=== PATIENT | male | born 1970 | race Two or more races ===

== ENCOUNTER 2024-10-31 12:16 | Inpatient (IN) | payer BC, SELFPAY ==
--- NOTE | 2024-10-31 | XR_ITS ---
MRI abdomen, without contrast. MRCP Date and time of exam: October 31, 2024, 1719 hours INDICATIONS: Diagnosis cirrhosis, chronic hepatitis C, gastrointestinal bleeding, elevated total bilirubin, diffuse abdominal pain beginning 3 days ago Technique: Multiple axial and coronal images of the abdomen have been obtained with the Siemens 1.5T MRI scanner. Images obtained included T1 weighted transverse images, T2-weighted transverse images, T2-weighted transverse images fat-suppressed, T2 weighted haste fat suppressed transverse images, T1 weighted images, in and out of phase images, T2-weighted coronal images, breath hold, T2 weighted haze coronal images as well as T2 weighted coronal thick slab images, MRCP. Findings: Cirrhosis, liver nodular in contour Multiple liver lesions throughout the dome and right lobe of the liver, the largest in the lower right lobe of the liver 20 mm No intrahepatic biliary tract dilatation Multiple gallstones There is edema around the gallbladder but the patient has ascites Massive splenomegaly Common hepatic common bile duct are 2 mm with no common hepatic or common bile duct stones Wall thickening involving the colon diffusely, hepatic off of the pattern No hydronephrosis No dilated pancreatic duct or pancreatic mass IMPRESSION: Cirrhosis, multiple hepatic lesions, differential would include hepatic metastases, multifocal primary hepatocellular carcinoma, recommend MRI abdomen postintravenous contrast follow-up Cholelithiasis, gallbladder wall is edematous but the patient has ascites, consider HIDA scan follow-up to assess for cystic duct obstruction Massive splenomegaly Common hepatic duct common bile duct normal size no common hepatic or common bile duct stones, no extrahepatic biliary tract dilatation Diffuse hepatic adenopathy
[2024-10-31 13:07] VITALS: BP 134/80; PULSE 82; RESP 18; TEMP 37.3; O2SAT 96; BMI 21.2
--- NOTE | 2024-10-31 13:14 | PD.EDRME ---
Rapid Medical Screening Exam RME Arrival date/time: 10/31/24 12:16 This is a 54-year-old male that comes in with complaints of abdominal pain diffusely for the past 3 days. Patient denies any nausea, vomiting, diarrhea. Patient has a history of hepatitis C, liver cirrhosis and has had a GI bleed in the past. I have greeted and performed a focused initial assessment of this patient. Initial appropriate labs ordered at this time. A comprehensive ED assessment and evaluation of the patient and analysis of all test and completion of medical decision making process will be conducted by additional ED provider. Chief Complaint: Abdominal Pain Time Seen by Provider: 10/31/24 12:39 Vital signs: Vital Signs Temperature 99.2 F 10/31/24 13:07 Pulse Rate 82 10/31/24 13:07 Respiratory Rate 18 10/31/24 13:07 Blood Pressure 134/80 H 10/31/24 13:07 Pulse Oximetry (%) 96 10/31/24 13:07 Oxygen Delivery Method Room Air 10/31/24 13:07
[2024-10-31 14:33] LABS: INR 1.3 (0.9-1.3)
[2024-10-31 14:38] LABS: Alanine Aminotransferase 25 U/L (10-49); Albumin, Serum 3.8 gm/dL (3.5-5.0); Albumin/Globulin Ratio 0.9 (1.2-2.2); Alkaline Phosphatase 105 U/L (46-116); Anion Gap 9 (7-16); Aspartate Amino Transferase 36 U/L (0-34); BUN/Creatinine Ratio 14 Ratio (12-20); Bilirubin,Total 3.8 mg/dL (0.3-1.2); Blood Urea Nitrogen 11 mg/dL (9-23); Calcium 8.7 mg/dL (8.3-10.6); Calcium (Corrected) 8.9 mg/dL (8.5-10.1); Carbon Dioxide 27.2 mMol/L (20.0-31.0); Chloride 102 mMol/L (98-107); Creatinine (Component) 0.8 mg/dL (0.6-1.3); Estimated Creatinine Clearance 96.1 mL/min (>60); Globulin 4.1 gm/dL (2.3-3.5); Glucose 247 mg/dL (74-106); Lipase 33 U/L (12-53); Osmolality,Calculated 283 (275-295); Potassium 3.9 mMol/L (3.4-5.1); Sodium 138 mMol/L (136-145); Total Protein 7.9 gm/dL (5.7-8.2); eGFR > 60 See Note
[2024-10-31 14:59] LABS: Collection Type, Urine Pedi-Bag; Squamous Epithelial Cell,Urine 0 /hpf (0-5)
[2024-10-31 15:15] LABS: Bilirubin,Urine Negative (Negative); Blood,Urine Negative (Negative); Clarity,Urine Clear (Clear/Hazy); Color,Urine Yellow (Lt Yel-Yel); Culture Indicated,Urine Not Indicated; Glucose, Urine 4+ (Negative); Ketones,Urine 1+ (Negative); Leukocyte Esterase,Urine Negative (Negative); Nitrite,Urine Negative (Negative); PH,Urine 5.5 (5.0-7.0); Protein,Urine 1+ (Neg - Trace); RBC,Urine 5 /hpf (0-3); Specific Gravity,Urine 1.045 (1.001-1.035); Urobilinogen,Urine Negative mg/dL (0.0-1.0); WBC,Urine 2 /hpf (0-5)
[2024-10-31 15:16] VITALS: BP 145/69; PULSE 76; RESP 19; TEMP 36.9; O2SAT 98
--- NOTE | 2024-10-31 15:25 | EDNOTE_ITS ---
<Statement entered by Tierra Maier MD - 11/01/24 04:25> As co-signing physician, I was present and available for consult prn. I concur with the plan and care as documented by the midlevel provider. ED Abdominal Pain RME/HPI General Chief Complaint: Abdominal Pain Stated complaint: ABD PAIN X2 DAYS Time seen by provider: 10/31/24 12:39 Arrival date/time: 10/31/24 12:16 RME / HPI RME / HPI narrative: 54-year-old male that comes in with complaints of abdominal pain diffusely for the past 3 days. Patient denies any nausea, vomiting, diarrhea. Patient has a history of hepatitis C, liver cirrhosis and has had a GI bleed in the past. Pain is described as dull ache, severity moderate. Denies any vomiting denies any other complaints. No medications taken prior to ER visit. Related Data Previous Rx's ?Medication ?Instructions ?Recorded blood-glucose sensor (FreeStyle #1 ea 05/23/23 Keanu 3 Sensor device) metformin 500 mg tablet,extended 500 mg PO BID 30 days #60 tabs 05/23/23 release 24hr (osmotic) pantoprazole 40 mg tablet,delayed 40 mg PO QDAY 30 day s #30 tabs 05/23/23 release Allergies Allergy/AdvReac Type Severity Reaction Status Date / Time No Known Allergies Allergy Unverified 06/30/23 11:48 Review of Systems Review of Systems Narrative Review of Systems: Review of system reviewed and within normal limits except mentioned in HPI ED Exam Narrative Physical exam: VITAL SIGNS: Reviewed. GENERAL APPEARANCE: Alert and interactive, follows commands, no acute distress, HEAD AND FACE: Non-traumatic. ENT: PERRL, pale conjunctiva, eyelid no trauma, Mucous membrane moist. NECK: Supple, nontender, no nuchal rigidity. CHEST: No tenderness, no crepitus, no paradoxical movement, no retractions. LUNGS: Clear, well ventilated, symmetric, no rales, no wheezing, no ronchi, no stridor, good breath sounds bilaterally. HEART: Regular rate, regular rhythm, no murmur, no gallops. ABDOMEN: Soft, positive bowel sounds, nondistended, no guarding, diffuse tenderness, no rebound, no masses, RECTAL: Deferred. GENITAL: Deferred. NEUROLOGICAL: Gross motor function intact sensory function intact, Appropriate for age. MUSCULOSKELETAL: low back nontender, full range of motion. EXTREMITIES: Nontender, full range of motion. SKIN: Color pink, dry, no rash, no lacerations, no abrasions, no contusions. LYMPHATICS: Deferred. Course Quality Measures none Orders Category Date Time Status MRI Screening NOW Care 10/31/24 15:23 Active Consult to Gastroenterology Stat Cons 10/31/24 21:14 Ordered MR MRCP Stat Exams 10/31/24 Completed Bilirubin,Direct Stat Lab 10/31/24 15:32 Completed CBC Stat Lab 10/31/24 15:32 Completed Comprehensive Metabolic Panel Stat Lab 10/31/24 13:47 Completed Lipase Stat Lab 10/31/24 13:47 Completed PT [Prothrombin Time with INR] Stat Lab 10/31/24 13:47 Completed Type and Screen Stat Lab 10/31/24 13:47 Completed Urinalysis, C/S if Indicated Stat Lab 10/31/24 14:14 Completed Morphine Inj Med 10/31/24 15:22 Discontinued 4 mg IVP X1 ONE Ondansetron Inj [Zofran Inj] Med 10/31/24 15:22 Discontinued 4 mg IV X1 ONE Vital Signs Vital signs: Vital Signs Temperature 99.2 F 10/31/24 13:07 Pulse Rate 82 10/31/24 13:07 Respiratory Rate 18 10/31/24 13:07 Blood Pressure 134/80 H 10/31/24 13:07 Pulse Oximetry (%) 96 10/31/24 13:07 Oxygen Delivery Method Room Air 10/31/24 13:07 Abdominal Pain MDM MDM Narrative MDM Narrative:: 54-year-old male that comes in with complaints of abdominal pain diffusely for the past 3 days. Patient denies any nausea, vomiting, diarrhea. Patient has a history of hepatitis C, liver cirrhosis and has had a GI bleed in the past. Pain is described as dull ache, severity moderate. Denies any vomiting denies any other complaints. No medications taken prior to ER visit. Patient's laboratory workup is significant for total bili 03.8 direct bili 0.6 AST is 36 the rest of the labs unremarkable. Urinalysis no UTI MRCP of the abdomen showed cirrhosis, multiple hepatic lesion, differential includes hepatic metastasis multifocal primary hepatocellular carcinoma. Cholelithiasis gallbladder wall edema but patient is having ascites.. Patient received morphine IV with significant improvement of pain Spoke with GI specialist on-call, Dr. Henry, who advised me to admit the patient for further management including CT-guided biopsy of the liver lesions Patient agrees to be admitted. Patient data External records reviewed:: None Clinical information provided by:: patient Social determinants that could affect healthcare access:: none Patient has the following chronic illnesses:: Liver cirrhosis How is presenting disease/condition affected by chronic disease/condition?: exacerbated by Evaluation data The following diagnostics were reviewed and interpreted by me:: lab results and radiology exam(s) Lab and/or radiology exams considered but not ordered:: None Interpretation Summary: See results in [facility] Medications / Prescriptions Medications or Prescriptions considered but not ordered:: None Medication administrations:: Medication Administration History Discontinued Medications Morphine Sulfate (Morphine Sulf Inj 10 Mg/Ml Vial) 4 mg IVP X1 ONE Stop: 10/31/24 15:23 Last Admin: 10/31/24 19:02 Dose: 4 mg Documented By: TRISTAN Ondansetron HCl (Ondansetron Inj 2 Mg/Ml Inj 2 Ml) 4 mg IV X1 ONE; Protocol Stop: 10/31/24 15:23 Last Admin: 10/31/24 19:06 Dose: 4 mg Documented By: elaine Gaspar Consultations Consultation(s) initiated? (list below): No Diagnosis Differential diagnosis abdominal pain: abdominal pain, pancreatitis and other (Cholelithiasis, hepatic lesions, liver cirrhosis) Most likely diagnosis given after review of the tests above:: Cholelithiasis, hepatic lesions, liver cirrhosis Admission Indicated Admission indicated?: indicated Admission Request Was there a request for admission?: Yes Admission Attestation Admission request attestation: Discussed case with [Dr. Lopez] from Hospitalist service regarding admission. Discussed patients ED course, exam findings, labs, and radiology results. The Hospitalist declines] to accept the patient for admission. Disposition Plan Disposition Plan: Admit Discharge Plan Prescriptions/Referrals Prescriptions/Med Rec: No Action pantoprazole 40 mg tablet,delayed release (DR/EC) 40 mg PO QDAY 30 Days Qty: 30 2RF metformin 500 mg tablet extended release 24hr 500 mg PO BID 30 Days Qty: 60 2RF (DME) FreeStyle Keanu 3 Sensor Device See Rx Instructions .Route Qty: 1 2RF Rx Instructions: As directed Referrals: Maru,Juice, MD [Primary Care Provider] - In 1 week Problem List Clinical Impression: Abdominal pain, Cholelithiasis, Cirrhosis of liver, Hepatic lesion Patient/Caregiver Discharge Instructions Print Language: Tanzanian
[2024-10-31 15:44] LABS: Basophils % (Auto) 0 % (0-2.5); Eosinophils % (Auto) 0 % (0-10); Hematocrit 39.3 % (41.0-53.0); Hemoglobin 13.4 g/dL (13.5-16.0); Immature Granulocytes % (Auto) 0 % (0-0); Immature Granulocytes Auto 0.01 Thou/mm3 (0.00-0.00); Lymphocytes # (Auto) 0.5 Thou/mm3 (1.0-4.8); Lymphocytes % (Auto) 9 % (10-50); Mean Corpuscular HGB Conc 34.1 g/dl (31.0-37.0); Mean Corpuscular Hemoglobin 27.7 pg (25.0-35.0); Mean Corpuscular Volume 81 fL (80-100); Monocytes # (Auto) 0.4 Thou/mm3 (0.0-0.8); Monocytes % (Auto) 8 % (0-12); Neutrophils # (Auto) 4.5 Thou/mm3 (1.8-7.7); Neutrophils % (Auto) 83 % (37-80); Nucleated Red Blood Cell % 0 /100 WBC (0); RDW Standard Deviation 55.7 fL (35.1-43.9); Red Blood Count 4.83 Miln/mm3 (4.50-5.90); White Blood Count 5.5 Thou/mm3 (3.8-10.6)
[2024-10-31 15:52] LABS: Platelet Count 48 Thou/mm3 (140-440)
[2024-10-31 16:03] LABS: Bilirubin,Direct 0.6 mg/dL (0.0-0.3)
[2024-10-31 16:57] LABS: Slide Review Platelets confirmed
[2024-10-31] MEDS: MORPHINE SULF INJ 10 MG/ML VIAL 4 MG IVP (19:02)
[2024-10-31] MEDS: ONDANSETRON INJ 2 MG/ML INJ 2 ML 4 MG IV (19:06)
[2024-10-31 19:08] VITALS: BP 152/80; PULSE 81; RESP 18; TEMP 37.2; O2SAT 96
[2024-10-31 21:07] VITALS: BP 120/69; PULSE 86; RESP 17; TEMP 37; O2SAT 98
--- NOTE | 2024-10-31 22:14 | ESCONSULT_ITS ---
HPI Data of Consult Primary Care Provider: Juice Mahoney MD Consult Narrative Reason for consult: Abnormal LFTs, abnormal MRCP History of present illness: 54-year-old male admitted after discussion with the ER physician of abnormal LFTs with a total bili of 4.5 AST ALT [address] scan of the abdomen pelvis has shown splenomegaly portosystemic collaterals and cirrhosis MRCP at my request showed multiple hepatic lesions primary versus metastatic hepatocellular carcinoma is in the differential diagnosis and thickening of the colonic wall Patient was subsequently admitted Patient does have a history of GI bleeds in the past requiring band ligation of the esophageal varices Chronic liver disease due to hepatitis C cc:: cc: Review of Systems Review of Systems Systems Reviewed: All systems reviewed, normal except as documented Past Medical History Surgical History OTHER SURGICAL HX: Diabetes mellitus type 1 Meds Home Medications and Allergies Home Medications ?Medication ?Instructions ?Recorded ?Confirmed ?Type risankizumab-rzaa 150 mg/mL mg subcut 11/01/24 Histor y subcutaneous pen injector (Skyrizi) semaglutide 0.25 mg or 0.5 mg (2 mg subcut 11/01/24 H istory mg/3 mL) subcutaneous pen injector (Ozempic) Allergies Allergy/AdvReac Type Severity Reaction Status Date / Time No Known Allergies Allergy Unverified 06/30/23 11:48 Exam Vital Signs Temp Pulse Resp BP Pulse Ox O2 Del Method 98.6 F 86 17 120/69 98 Room Air 10/31/24 21:07 10/31/24 21:07 10/31/24 21:07 10/31/24 21:07 10/31/24 21:07 10/31/24 21:07 Constitutional Comments: Alert oriented Routine Respiratory Exam Comments: Normal to auscultation Routine Abdominal Exam Comments: Soft nontender Results Labs 11/01/24 05:40 11/01/24 05:40 Labs: Short CBC 10/31/24 Range/Units 15:32 WBC 5.5 (3.8-10.6) Thou/mm3 Hgb 13.4 L (13.5-16.0) g/dL Hct 39.3 L (41.0-53.0) % Plt Count 48 L (140-440) Thou/mm3 BMP 10/31/24 13:47 Sodium 138 Potassium 3.9 Chloride 102 Carbon Dioxide 27.2 BUN 11 Creatinine 0.8 Glucose 247 H Calcium 8.7 Liver Function 10/31/24 10/31/24 Range/Units 13:47 15:32 Total Bilirubin 3.8 H (0.3-1.2) mg/dL Direct Bilirubin 0.6 H (0.0-0.3) mg/dL AST 36 H (0-34) U/L ALT 25 (10-49) U/L Alkaline Phosphatase 105 (46-116) U/L Albumin 3.8 (3.5-5.0) gm/dL Urine 10/31/24 Range/Units 14:14 Urine Color Yellow (Lt Yel-Yel) Urine Clarity Clear (Clear/Hazy) Urine pH 5.5 (5.0-7.0) Ur Specific [place] 1.045 H (1.001-1.035) Urine Protein 1+ A (Neg - Trace) Urine Glucose (UA) 4+ A (Negative) Assessment and Plan Additional Assessment & Plan Additional Plan: 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
[2024-10-31 23:28] VITALS: BP 101/52; PULSE 80; RESP 16; TEMP 36.8; O2SAT 97
[2024-10-31] MEDS: LACTULOSE SYRUP 20 GM/30 ML UDC 10 GM PO (23:34)
[2024-10-31] MEDS: SENNA TABLET 1 TAB PO (23:34)
--- NOTE | 2024-10-31 23:42 | ESHP_ITS ---
Documentation for date of: 10/31/24 HPI History of Present Illness Chief complaint: Abdominal pain History of present illness: Mr. Guerrero is a 54-year-old male with past medical history of esophageal varices (November 2022), Cirrhosis, psoriasis, hepatitis C infection, diabetes, hypertension and claustrophobia who presented to [facility] emergency department on 10/31/2024 with a chief complaint of abdominal pain, patient complains of severe abdominal pain describes it as a dull ache with moderate severity. Patient complains that he has been constipated for a while, reports using Ozempic for diabetes, did report a small bowel movement earlier today complains of a sense of fullness. Otherwise has no current complaints, does complain of some discomfort in the back. 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 Patient denies any nausea vomiting, denies any blood in stool. ED Course: ED Vitals: On presentation blood pressure 134/80, heart rate 82, respiratory rate 18, temp 99.2, O2 sat 96 on room air ED Labs: On presentation ED labs significant for hemoglobin 13.4, hematocrit 39.3, platelet count 48, INR 1.3, glucose 247, total bilirubin 3.8, direct bilirubin 0.6, AST 36, globulin 4.1. Urinalysis show specific gravity 1.045, protein 1+, glucose 4+, ketones 1+, RBC 5 ED Imaging: MRCP shows cirrhosis, multiple hepatic lesions, cholelithiasis, massive splenomegaly, diffuse hepatic adenopathy ED Treatment:Patient received 4 mg IV push morphine x 1 and Zofran 4 mg IV x 1 in the emergency department Review of Systems Review of Systems Narrative Review of Systems: ROS: -CONSTITUTIONAL: Denies weight loss, fever and chills. -HEENT: Denies changes in vision and hearing. -RESPIRATORY: Denies SOB and cough. -CV: Denies palpitations and Chest Pain. -GI: Positive for abdominal pain, denies nausea, vomiting,constipation and diarrhea. -: Denies dysuria and urinary frequency. -MSK: Denies myalgia and joint pain. -SKIN: Denies rash and pruritus. -NEUROLOGICAL: Denies headache and syncope. -PSYCHIATRIC: Denies recent changes in mood. Denies anxiety and depression. 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 Conversational and non-toxic appearing. HEENT: Normocephalic, atraumatic, mucous membranes moist. Heart: Regular rate and rhythm, no murmurs. Lungs: Clear to auscultation with no wheezing or crackles. Abdomen: Soft, nondistended, mild abdominal tenderness, positive bowel sounds. ?No guarding or rebound tenderness. Neurologic: Alert and oriented x3, no gross neurological deficit, and patient able to move all 4 extremities. Extremities: No edema. Skin: No rash or ecchymoses. Results: Labs 10/31/24 15:32 10/31/24 13:47 Labs: Short CBC 10/31/24 Range/Units 15:32 WBC 5.5 (3.8-10.6) Thou/mm3 Hgb 13.4 L (13.5-16.0) g/dL Hct 39.3 L (41.0-53.0) % Plt Count 48 L (140-440) Thou/mm3 BMP 10/31/24 13:47 Sodium 138 Potassium 3.9 Chloride 102 Carbon Dioxide 27.2 BUN 11 Creatinine 0.8 Glucose 247 H Calcium 8.7 Liver Function 10/31/24 10/31/24 Range/Units 13:47 15:32 Total Bilirubin 3.8 H (0.3-1.2) mg/dL Direct Bilirubin 0.6 H (0.0-0.3) mg/dL AST 36 H (0-34) U/L ALT 25 (10-49) U/L Alkaline Phosphatase 105 (46-116) U/L Albumin 3.8 (3.5-5.0) gm/dL Urine 10/31/24 Range/Units 14:14 Urine Color Yellow (Lt Yel-Yel) Urine Clarity Clear (Clear/Hazy) Urine pH 5.5 (5.0-7.0) Ur Specific [place] 1.045 H (1.001-1.035) Urine Protein 1+ A (Neg - Trace) Urine Glucose (UA) 4+ A (Negative) Quality Measures Quality Measures none Medications Home Medications and Allergies Home Medications ?Medication ?Instructions ?Recorded ?Confirmed ?Type risankizumab-rzaa 150 mg/mL mg subcut 11/01/24 Histor y subcutaneous pen injector (Skyrizi) semaglutide 0.25 mg or 0.5 mg (2 mg subcut 11/01/24 H istory mg/3 mL) subcutaneous pen injector (Ozempic) Allergies Allergy/AdvReac Type Severity Reaction Status Date / Time No Known Allergies Allergy Unverified 06/30/23 11:48 Visit Medications Acetaminophen (Acetaminophen 325 Mg Tablet) 650 mg PO Q6H PRN PRN Reason: Pain (1-3) and Fever >101.5 Stop: 11/30/24 22:47 Hydrocodone Bitart/Acetaminophen (Hydrocodone/Apap 5/325 Tablet) 1 tab PO Q4HR PRN PRN Reason: PAIN SCALE 4-6 (Moderate Stop: 11/05/24 22:53 Dextrose (Dextrose 50%-Water Inj 50 Ml Syringe) 25 ml IV Q15MIN PRN PRN Reason: BG 50-70 responsive npo pt Stop: 11/30/24 22:58 Dextrose (Dextrose 50%-Water Inj 50 Ml Syringe) 50 ml IV Q15MIN PRN PRN Reason: BG <50 OR BG <70 & pt unresponsive Stop: 11/30/24 22:58 Glucagon (Glucagon Inj 1 Mg Vial) 1 mg IM Q15MIN PRN PRN Reason: BG <70, and no IV access Insulin Human Lispro (Insulin Lispro (Admelog) 1 Unit/0.01 Ml Unit) 0 unit SC [facility]; Protocol Stop: 12/01/24 07:29 Morphine Sulfate (Morphine Sulf Inj 10 Mg/Ml Vial) 2 mg IVP Q6H PRN PRN Reason: PAIN SCALE 7-10 (Severe Stop: 11/05/24 22:53 Ondansetron HCl (Ondansetron Inj 2 Mg/Ml Inj 2 Ml) 4 mg IV Q6H PRN; Protocol PRN Reason: NAUSEA OR VOMITING Stop: 11/30/24 22:47 Pantoprazole Sodium (Pantoprazole Inj 40 Mg Vial) 40 mg IVP QDAY ADARSH Stop: 12/01/24 08:59 Polyethylene Glycol (Polyethylene Glycol 17 Gm Packet) 17 gm PO QDAY ADARSH Stop: 12/01/24 08:59 Sennosides (Senna Tablet) 2 tab PO QDAY ADARSH; Protocol Stop: 12/01/24 08:59 Discontinued Medications Lactulose (Lactulose Syrup 20 Gm/30 Ml Udc) 10 gm PO X1 ONE; Protocol Stop: 10/31/24 22:58 Last Admin: 10/31/24 23:34 Dose: 10 gm Morphine Sulfate (Morphine Sulf Inj 10 Mg/Ml Vial) 4 mg IVP X1 ONE Stop: 10/31/24 15:23 Last Admin: 10/31/24 19:02 Dose: 4 mg Ondansetron HCl (Ondansetron Inj 2 Mg/Ml Inj 2 Ml) 4 mg IV X1 ONE; Protocol Stop: 10/31/24 15:23 Last Admin: 10/31/24 19:06 Dose: 4 mg Sennosides (Senna Tablet) 1 tab PO X1 ONE; Protocol Stop: 10/31/24 22:58 Last Admin: 10/31/24 23:34 Dose: 1 tab Assessment & Plan Plan Assessment and plan: Summary: Mr. Guerrero is a 54-year-old male with past medical history of esophageal varices (November 2022), Cirrhosis, psoriasis, hepatitis C infection, diabetes, hypertension and claustrophobia who presented to [facility] emergency department on 10/31/2024 with a chief complaint of abdominal pain, patient complains of severe abdominal pain describes it as a dull ache with moderate severity. Patient admitted to hospital for further workup. #Intractable abdominal pain #Multiple hepatic lesions #Compensated cirrhosis #History of hepatitis C #Thrombocytopenia, hyperbilirubinemia, transaminitis Patient has history of cirrhosis secondary to hepatitis C, patient did have history of esophageal varices, had bleeding in November 2022, follows gastroenterology outpatient. Presented with severe abdominal pain, reports history of constipation on and off is on Ozempic outpatient. Platelet count 48, INR 1.3, glucose 247, total bilirubin 3.8, direct bilirubin 0.6, AST 36. MRCP shows cirrhosis, multiple hepatic lesions, cholelithiasis, massive splenomegaly, diffuse hepatic adenopathy Child Ng score: 7 points, Child class B, MELD score 14 points, 6% estimated 3- month mortality Plan: - Pain management - Started on senna and MiraLAX scheduled, lactulose x 1 for constipation - Consider liver biopsy - Ordered AFP - GI consulted, appreciate recommendations - MRCP does show cholelithiasis, consider surgery consult #Diabetes mellitus Patient has history of diabetes on Ozempic - Sliding scale insulin, fingerstick monitor - Hypoglycemia protocol - Follow A1c in a.m. #Hypertension Patient on Coreg for hypertension/esophageal varices prophylaxis - Consider resuming in a.m. #Psoriasis Patient on risankizumab for psoriasis, currently no complaints DVT prophylaxis: SCDs, no chemical prophylaxis started because of low platelets and history of esophageal varices GI prophylaxis: IV Protonix daily Diet: Low-sodium diet Lines: Peripheral IV Code status: Full code Case discussed with Attending Dr. Polk. Brandon Lopez PGY1 Disclaimer: This note was dictated by speech recognition. Minor errors in shoeshiner may be present due to voice recognition software. Attending Provider Attestation/Addendum I have examined the patient, reviewed labs and imaging findings, discussed the case with the resident(s), and reviewed entered orders. I agree with the plan of care as outlined in this note, with these additional summaries/recommendations: 54-year-old male with history of cirrhosis likely secondary to hep C presents to the ED with chief complaint of intractable abdominal pain that has been ongoing worsening for last several days. Workup in the ER shows cirrhosis, multiple hepatic lesions, cholelithiasis, massive splenomegaly, diffuse hepatic adenopathy. Case was discussed with GI who recommended admission for further workup of possible malignancy. Will admit to observation for workup and possible biopsy of hepatic lesions. Steve Polk MD
[2024-11-01] VITALS (7 sets, daily range): BP systolic 113–145; BP diastolic 61–78; PULSE 64–75; RESP 14–18; TEMP 36.2–37.4; O2SAT 95–97; BMI 21.4
[2024-11-01] MEDS: MORPHINE SULF INJ 10 MG/ML VIAL 2 MG IVP (02:56)
[2024-11-01 07:05] LABS: Basophils % (Auto) 1 % (0-2.5); Eosinophils # (Auto) 0.1 Thou/mm3 (0.0-0.5); Eosinophils % (Auto) 3 % (0-10); Hematocrit 33.7 % (41.0-53.0); Hemoglobin 11.8 g/dL (13.5-16.0); INR 1.4 (0.9-1.3); Immature Granulocytes % (Auto) 0 % (0-0); Lymphocytes # (Auto) 1.1 Thou/mm3 (1.0-4.8); Lymphocytes % (Auto) 31 % (10-50); Mean Corpuscular Hemoglobin 28.7 pg (25.0-35.0); Mean Corpuscular Volume 82 fL (80-100); Monocytes # (Auto) 0.5 Thou/mm3 (0.0-0.8); Monocytes % (Auto) 15 % (0-12); Neutrophils # (Auto) 1.8 Thou/mm3 (1.8-7.7); Neutrophils % (Auto) 51 % (37-80); Nucleated Red Blood Cell % 0 /100 WBC (0); Prothrombin Time 15.1 Seconds (9.0-12.2); RDW Standard Deviation 55.8 fL (35.1-43.9); Red Blood Count 4.11 Miln/mm3 (4.50-5.90); White Blood Count 3.5 Thou/mm3 (3.8-10.6)
[2024-11-01 07:07] LABS: Platelet Count 34 Thou/mm3 (140-440)
[2024-11-01 07:24] LABS: Alanine Aminotransferase 19 U/L (10-49); Albumin, Serum 3.5 gm/dL (3.5-5.0); Albumin/Globulin Ratio 0.9 (1.2-2.2); Alkaline Phosphatase 80 U/L (46-116); Anion Gap 6 (7-16); Aspartate Amino Transferase 28 U/L (0-34); BUN/Creatinine Ratio 17 Ratio (12-20); Bilirubin,Total 4.5 mg/dL (0.3-1.2); Blood Urea Nitrogen 12 mg/dL (9-23); Calcium 8.3 mg/dL (8.3-10.6); Calcium (Corrected) 8.7 mg/dL (8.5-10.1); Carbon Dioxide 28.1 mMol/L (20.0-31.0); Cardiac Risk Estimate 3.1 RATIO (4.0-6.7); Chloride 105 mMol/L (98-107); Cholesterol 110 mg/dL (132-200); Creatinine (Component) 0.7 mg/dL (0.6-1.3); Estimated Creatinine Clearance 111.1 mL/min (>60); Globulin 3.7 gm/dL (2.3-3.5); Glucose 123 mg/dL (74-106); HDL Cholesterol 36 mg/dL (40-60); LDL Cholesterol,Calculated 60 mg/dL (0-130); Magnesium 1.7 mg/dL (1.6-2.6); Osmolality,Calculated 278 (275-295); Phosphorous 2.6 mg/dL (2.4-5.1); Potassium 3.4 mMol/L (3.4-5.1); Sodium 139 mMol/L (136-145); Thyroid Stimulating Hormone 1.48 uIU/mL (0.55-4.78); Total Protein 7.2 gm/dL (5.7-8.2); Triglycerides 69 mg/dL (30-150); eGFR > 60 See Note
[2024-11-01 07:34] LABS: Glucose Estimated Average 212 mg/dL (80-131)
[2024-11-01 07:40] LABS: Slide Review Platelets confirmed
[2024-11-01] MEDS: PANTOPRAZOLE INJ 40 MG VIAL IVP (08:06)
[2024-11-01] MEDS: Magnesium Sulfate 4 GM Ivpb 4 GM/50 ML BAG IV (09:39)
--- NOTE | 2024-11-01 11:22 | PD.RESPRO ---
Documentation for date of: 11/01/24 Subjective Subjective Interval history: 11/01/2024: Patient is an overnight admission, 54-year-old male with history of hepatitis C induced cirrhosis, type 2 diabetes, hypertension presenting with hepatic lesions found on MRCP. Patient seen and assessed in hospital bed, denies having any abdominal pain or any other concerning cardiac symptoms. On physical exam, patient does not have tender abdomen and generally appears well and answering questions appropriately. Patient is slightly anxious regarding possible cancer diagnosis; moreover, reassured the patient that we are currently working up diagnosis for the lesions and GI is following closely. Will continue monitoring patient and follow-up with GI recommendations. GI recommends CT-guided biopsy of liver lesion. Will consult oncology Dr. Gaona for recommendations as well. Exam Vital Signs Temp Pulse Resp BP Pulse Ox O2 Del Method 97.6 F 66 14 118/68 97 Room Air 11/01/24 07:48 11/01/24 07:48 11/01/24 07:48 11/01/24 07:48 11/01/24 07:48 11/01/24 07:48 Narrative Exam Physical Exam: GENERAL: Awake, answering questions appropriately, slightly jaundiced, appears stated age HEENT: NC/AT. Moist mucosa. PERRLA/EOMI. CARDIO: Heart RRR, no obvious murmurs, no JVD. PULM: No coughing or visible SOB. Lungs CTA B/L. GI: Abdomen soft, NT/ND, liver was not palpated below costophrenic margins, no guarding or rebound tenderness, borborygmi apparent SKIN/MSK/EXT: No wounds/discoloration/rashes/edema/amputations. +Pedal pulses present B/L. NEURO: Oriented x3, Moves extremities x4, no focal neurologic deficits noted Objective Labs 11/01/24 05:40 11/01/24 05:40 Labs: Laboratory Results - last 24 hr 10/31/24 10/31/24 10/31/24 13:47 14:14 15:32 WBC 5.5 RBC 4.83 Hgb 13.4 L Hct 39.3 L MCV 81 MCH 27.7 MCHC 34.1 RDW Std Deviation 55.7 H Plt Count 48 L Neut % (Auto) 83 H Lymph % (Auto) 9 L [place] % (Auto) 8 Eos % (Auto) 0 Baso % (Auto) 0 Neut # (Auto) 4.5 Lymph # (Auto) 0.5 L [place] # (Auto) 0.4 Eos # (Auto) 0.0 Baso # (Auto) 0.0 Immature Gran # (Auto) 0.01 H Absolute Nucleated RBC 0.00 Immature Gran % 0 Nucleated RBC % 0 PT 14.0 H INR 1.3 Sodium 138 Potassium 3.9 Chloride 102 Carbon Dioxide 27.2 Anion Gap 9 BUN 11 Creatinine 0.8 Estim Creat Clear Calc 96.1 eGFR > 60 BUN/Creatinine Ratio [address]ucose [address] Glu mg/dL Hemoglobin A1c Calculated Osmolality 283 Calcium 8.7 Corrected Calcium 8.9 Phosphorus Magnesium Total Bilirubin 3.8 H Direct Bilirubin 0.6 H AST 36 H ALT 25 Alkaline Phosphatase 105 Total Protein 7.9 Albumin 3.8 Globulin 4.1 H Albumin/Globulin Ratio 0.9 L Triglycerides Cholesterol LDL Cholesterol, Calc HDL Cholesterol Cholesterol/HDL Ratio Lipase 33 TSH Ur Collection Type Pedi-Bag Urine Color Yellow Urine Clarity Clear Urine pH 5.5 Ur Specific [place] 1.045 H Urine Protein 1+ A Urine Glucose (UA) 4+ A Urine Ketones 1+ A Urine Blood Negative Urine Nitrite Negative Urine Bilirubin Negative Urine Urobilinogen (Auto) Negative Ur Leukocyte Esterase Negative Urine RBC 5 H Urine WBC 2 Ur Squamous Epith Cells 0 Urine Bacteria None Ur Culture Indicated? Not Indicated Misc Test Result Platelets confirmed Blood Type O Positive Antibody Screen NEGATIVE Blood Bank Wristband ID Yes 11/01/24 05:40 WBC 3.5 L RBC 4.11 L Hgb 11.8 L Hct 33.7 L MCV 82 MCH 28.7 MCHC 35.0 RDW Std Deviation 55.8 H Plt Count 34 L D Neut % (Auto) 51 Lymph % (Auto) 31 [place] % (Auto) 15 H Eos % (Auto) 3 Baso % (Auto) 1 Neut # (Auto) 1.8 Lymph # (Auto) 1.1 [place] # (Auto) 0.5 Eos # (Auto) 0.1 Baso # (Auto) 0.0 Immature Gran # (Auto) 0.00 Absolute Nucleated RBC 0.00 Immature Gran % 0 Nucleated RBC % 0 PT 15.1 H INR 1.4 H Sodium 139 Potassium 3.4 D Chloride 105 Carbon Dioxide 28.1 Anion Gap 6 L BUN 12 Creatinine 0.7 Estim Creat Clear Calc 111.1 eGFR > 60 BUN/Creatinine Ratio 17 Glucose [address] Glu mg/dL 212 H Hemoglobin A1c 9.0 H Calculated Osmolality 278 Calcium 8.3 Corrected Calcium 8.7 Phosphorus 2.6 Magnesium 1.7 Total Bilirubin 4.5 H D Direct Bilirubin AST 28 ALT 19 Alkaline Phosphatase 80 D Total Protein 7.2 Albumin 3.5 Globulin 3.7 H Albumin/Globulin Ratio 0.9 L Triglycerides 69 Cholesterol 110 L LDL Cholesterol, Calc 60 HDL Cholesterol 36 L Cholesterol/HDL Ratio 3.1 L Lipase TSH 1.48 Ur Collection Type Urine Color Urine Clarity Urine pH Ur Specific [place] Urine Protein Urine Glucose (UA) Urine Ketones Urine Blood Urine Nitrite Urine Bilirubin Urine Urobilinogen (Auto) Ur Leukocyte Esterase Urine RBC Urine WBC Ur Squamous Epith Cells Urine Bacteria Ur Culture Indicated? Misc Test Result Platelets confirmed Blood Type Antibody Screen Blood Bank Wristband ID Quality Measures Quality Measures none Assessment & Plan Assessment Current Active Medications: Generic Name Dose Route Start Last Admin Trade Name Freq PRN Reason Stop Dose Admin Acetaminophen 650 mg 10/31/24 22:48 Acetaminophen 325 Mg Tablet PO 11/30/24 22:47 Q6H PRN Pain (1-3) and Fever >101.5 Hydrocodone Bitart/Acetaminophen 1 tab 10/31/24 22:54 Hydrocodone/Apap 5/325 Tablet PO 11/05/24 22:53 Q4HR PRN PAIN SCALE 4-6 (Moderate Dextrose 25 ml 10/31/24 22:59 Dextrose 50%-Water Inj 50 Ml Syringe IV 11/30/24 22:58 Q15MIN PRN BG 50-70 responsive npo pt Dextrose 50 ml 10/31/24 22:59 Dextrose 50%-Water Inj 50 Ml Syringe IV 11/30/24 22:58 Q15MIN PRN BG <50 OR BG <70 & pt unresponsive Glucagon 1 mg 10/31/24 22:59 Glucagon Inj 1 Mg Vial IM Q15MIN PRN BG <70, and no IV access Magnesium Sulfate 4 gm in 50 mls @ 12.5 mls/hr 11/01/24 08:51 11/01/24 09:39 Magnesium Sulfate Ivpb IV 11/01/24 12:50 12.5 mls/hr X1 ONE Administration Insulin Human Lispro 0 unit 11/01/24 07:30 11/01/24 11:08 Insulin Lispro (Admelog) 1 Unit/0.01 Ml Unit SC 12/01/24 07:29 Not Given AC ADARSH Protocol Morphine Sulfate 2 mg 10/31/24 22:54 11/01/24 02:56 Morphine Sulf Inj 10 Mg/Ml Vial IVP 11/05/24 22:53 2 mg Q6H PRN Administration PAIN SCALE 7-10 (Severe Ondansetron HCl 4 mg 10/31/24 22:48 Ondansetron Inj 2 Mg/Ml Inj 2 Ml IV 11/30/24 22:47 Q6H PRN NAUSEA OR VOMITING Protocol Pantoprazole Sodium 40 mg 11/01/24 09:00 11/01/24 08:06 Pantoprazole Inj 40 Mg Vial IVP 12/01/24 08:59 40 mg QDAY ADARSH Administration Polyethylene Glycol 17 gm 11/01/24 09:00 11/01/24 08:05 Polyethylene Glycol 17 Gm Packet PO 12/01/24 08:59 Not Given QDAY ADARSH Sennosides 2 tab 11/01/24 09:00 11/01/24 08:05 Senna Tablet PO 12/01/24 08:59 Not Given QDAY ADARSH Protocol Plan 54-year-old male with past medical history of esophageal varices (November 2022), Cirrhosis, psoriasis, hepatitis C infection, diabetes, hypertension and claustrophobia who presented to [facility] emergency department on 10/31/2024 with a chief complaint of abdominal pain, patient complains of severe abdominal pain describes it as a dull ache with moderate severity. Patient admitted to hospital for further workup. #Decompensated liver disease #Thrombocytopenia, hyperbilirubinemia, hypoalbuminemia, hypercoagulable #Multiple hepatic lesions, likely metastatic process #History of hepatitis C infection, chronic Patient has history of cirrhosis secondary to hepatitis C History of esophageal varices, had bleeding in November 2022, follows gastroenterology outpatient. Presented with severe abdominal pain, reports history of constipation on and off is on Ozempic outpatient. Platelet count 48, INR 1.3, glucose 247, total bilirubin 3.8, direct bilirubin 0.6, AST 36 MRCP shows cirrhosis, multiple hepatic lesions, cholelithiasis, massive splenomegaly, diffuse hepatic adenopathy Child Ng score: 7 points, Child class B, MELD score 14 points, 6% estimated 3-month mortality Plan: Will restart patient's Coreg when appropriate, currently blood pressure and heart rate stable Multimodal pain management Bowel regimen Follow-up on AFP and CEA CT-guided biopsy for lesion lesion GI consulted, appreciate recommendations Oncology consulted, appreciate recommendations #Cholelithiasis As stated above, patient presented with abdominal pain MRCP does show cholelithiasis, consider surgery consult Lab findings include elevated total bilirubin and direct bilirubin On examination, patient does not have any Figueredo sign or abdominal tenderness noted Plan: Will continue monitor for inpatient surgery versus referral for outpatient follow-up with general surgery #Diabetes mellitus, type II [id number] Patient has history of diabetes on Ozempic A1c of 9.0 Plan: SSI Diabetic education #Hypertension Patient on Coreg for hypertension/esophageal varices prophylaxis Plan: Will consider resuming when appropriate #Psoriasis Patient on risankizumab for psoriasis, currently no complaints Plan: Will hold off for now, resume when discharged Hospital Management: DVT prophylaxis: SCDs, no chemical prophylaxis started because of low platelets and history of esophageal varices GI prophylaxis: IV Protonix daily Diet: Low-sodium diet Lines: Peripheral IV Bowel: Senna and MiraLAX Code status: Full code Patient seen and assessed with attending Dr. Laverne Schilling, PGY-1
--- NOTE | 2024-11-01 11:55 | PC.SS ---
This is 54-year-old, single, male who presented to the ED for abdominal pain. Patient appeared alert and oriented to self, place and situation. Patient was pleasant. Patient reported that he resides at home with his son and brother. Patient is independent with all ADLs, no DME use. Patient assigned his daughter, Radha (phone: [phone]) as her medical decision maker. Patient's PCP is Dr. Mahoney. When medically clear, patient will return home.
[2024-11-01] MEDS: INSULIN LISPRO (AdmeLOG) 1 UNIT/0.01 ML UNIT SC (16:59)
[2024-11-01] MEDS: HYDROcodone/APAP 5/325 TABLET 1 TAB PO (19:44)
--- NOTE | 2024-11-01 19:49 | PD.IMPROG ---
Documentation for date of: 11/01/24 Subjective Subjective Interval history: Case discussed with internal medicine team CT-guided biopsy ordered for one of the hepatic lesions in the morning Exam Vital Signs Temp Pulse Resp BP Pulse Ox O2 Del Method 97.9 F 69 15 113/68 95 Room Air 11/01/24 15:34 11/01/24 15:34 11/01/24 15:34 11/01/24 15:34 11/01/24 15:34 11/01/24 15:34 Objective Labs 11/01/24 05:40 11/01/24 05:40 Labs: Laboratory Results - last 24 hr 11/01/24 05:40 WBC 3.5 L RBC 4.11 L Hgb 11.8 L Hct 33.7 L MCV 82 MCH 28.7 MCHC 35.0 RDW Std Deviation 55.8 H Plt Count 34 L D Neut % (Auto) 51 Lymph % (Auto) 31 [place] % (Auto) 15 H Eos % (Auto) 3 Baso % (Auto) 1 Neut # (Auto) 1.8 Lymph # (Auto) 1.1 [place] # (Auto) 0.5 Eos # (Auto) 0.1 Baso # (Auto) 0.0 Immature Gran # (Auto) 0.00 Absolute Nucleated RBC 0.00 Immature Gran % 0 Nucleated RBC % 0 PT 15.1 H INR 1.4 H Sodium 139 Potassium 3.4 D Chloride 105 Carbon Dioxide 28.1 Anion Gap 6 L BUN 12 Creatinine 0.7 Estim Creat Clear Calc 111.1 eGFR > 60 BUN/Creatinine Ratio 17 Glucose [address] Glu mg/dL 212 H Hemoglobin A1c 9.0 H Calculated Osmolality 278 Calcium 8.3 Corrected Calcium 8.7 Phosphorus 2.6 Magnesium 1.7 Total Bilirubin 4.5 H D AST 28 ALT 19 Alkaline Phosphatase 80 D Total Protein 7.2 Albumin 3.5 Globulin 3.7 H Albumin/Globulin Ratio 0.9 L Triglycerides 69 Cholesterol 110 L LDL Cholesterol, Calc 60 HDL Cholesterol 36 L Cholesterol/HDL Ratio 3.1 L TSH 1.48 Misc Test Result Platelets confirmed Impressions Impression: 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 PT, PTT ordered Assessment & Plan A&P Narrative 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 Time Spent With Patient Time: Total time spent is greater than 50% in coordination of care (as documented) at patient's floor/unit and/or counseling patient:
[2024-11-01 21:28] LABS: AFP Non-Pregnant < 1.30 ng/mL (<8.10)
[2024-11-01 21:29] LABS: Carcinoembryonic Antigen 2.2 ng/mL (0.0-5.0)
[2024-11-02] VITALS (10 sets, daily range): BP systolic 98–134; BP diastolic 61–73; PULSE 59–100; RESP 17–18; TEMP 36.1–36.4; O2SAT 97–98; BMI 21.4
[2024-11-02 06:47] LABS: Basophils % (Auto) 1 % (0-2.5); Eosinophils # (Auto) 0.1 Thou/mm3 (0.0-0.5); Eosinophils % (Auto) 3 % (0-10); Hematocrit 35.1 % (41.0-53.0); Hemoglobin 12.1 g/dL (13.5-16.0); Immature Granulocytes % (Auto) 0 % (0-0); Immature Granulocytes Auto 0.01 Thou/mm3 (0.00-0.00); Lymphocytes # (Auto) 1.1 Thou/mm3 (1.0-4.8); Lymphocytes % (Auto) 35 % (10-50); Mean Corpuscular HGB Conc 34.5 g/dl (31.0-37.0); Mean Corpuscular Hemoglobin 28.5 pg (25.0-35.0); Mean Corpuscular Volume 83 fL (80-100); Monocytes # (Auto) 0.4 Thou/mm3 (0.0-0.8); Monocytes % (Auto) 13 % (0-12); Neutrophils # (Auto) 1.5 Thou/mm3 (1.8-7.7); Neutrophils % (Auto) 48 % (37-80); Nucleated Red Blood Cell % 0 /100 WBC (0); RDW Standard Deviation 56.6 fL (35.1-43.9); Red Blood Count 4.25 Miln/mm3 (4.50-5.90)
[2024-11-02 07:01] LABS: INR 1.4 (0.9-1.3); Prothrombin Time 14.5 Seconds (9.0-12.2)
[2024-11-02 07:02] LABS: Prostate Specific Antigen 0.12 ng/mL (0-4.00)
[2024-11-02 07:10] LABS: Alanine Aminotransferase 17 U/L (10-49); Albumin, Serum 3.4 gm/dL (3.5-5.0); Albumin/Globulin Ratio 0.9 (1.2-2.2); Alkaline Phosphatase 79 U/L (46-116); Anion Gap 9 (7-16); Aspartate Amino Transferase 26 U/L (0-34); BUN/Creatinine Ratio 20 Ratio (12-20); Bilirubin,Total 3.3 mg/dL (0.3-1.2); Blood Urea Nitrogen 12 mg/dL (9-23); Calcium 8.4 mg/dL (8.3-10.6); Calcium (Corrected) 8.9 mg/dL (8.5-10.1); Carbon Dioxide 28.3 mMol/L (20.0-31.0); Chloride 105 mMol/L (98-107); Creatinine (Component) 0.6 mg/dL (0.6-1.3); Estimated Creatinine Clearance 129.6 mL/min (>60); Globulin 3.8 gm/dL (2.3-3.5); Glucose 141 mg/dL (74-106); Magnesium 1.9 mg/dL (1.6-2.6); Osmolality,Calculated 284 (275-295); Phosphorous 2.6 mg/dL (2.4-5.1); Potassium 3.6 mMol/L (3.4-5.1); Sodium 142 mMol/L (136-145); Total Protein 7.2 gm/dL (5.7-8.2); eGFR > 60 See Note
[2024-11-02 07:15] LABS: Platelet Count 41 Thou/mm3 (140-440)
[2024-11-02 07:45] LABS: Slide Review Platelets confirmed
--- NOTE | 2024-11-02 08:20 | PD.ONCCONS ---
HPI Data of Consult Requesting Physician: Steve Polk MD Primary Care Provider: Juice Mahoney MD Consult Narrative Reason for consult: Suspected liver mets. History of present illness: 54-year-old gentleman with history of esophageal varices cirrhosis hepatitis C admitted with intractable abdominal pain, with MRCP 10/31/2024 revealing cirrhosis and multiple hepatic lesions along with massive splenomegaly diffuse hepatic adenopathy. Elevated bili of 3.3 noted this a.m. PSA CEA AFP normal CA 19?9 pending. Biopsy of the liver lesions has been ordered. Patient now referred for oncological consultation. cc:: cc: Steve Polk MD Past Medical History Family History OTHER FAMILY HX: Denies prior cancer in family. 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 Past Medical History Comments PMH COMMENT: History of cirrhosis hepatitis C infection psoriasis claustrophobia Meds Home Medications and Allergies Home Medications ?Medication ?Instructions ?Recorded ?Confirmed ?Type risankizumab-rzaa 150 mg/mL mg subcut 11/01/24 History subcutaneous pen injector (Skyrizi) semaglutide 0.25 mg or 0.5 mg (2 mg subcut 11/01/24 History mg/3 mL) subcutaneous pen injector (Ozempic) Allergies Allergy/AdvReac Type Severity Reaction Status Date / Time No Known Allergies Allergy Unverified 06/30/23 11:48 Exam Vital Signs Temp Pulse Resp BP Pulse Ox O2 Del Method 97.5 F 82 17 124/73 98 Room Air 11/02/24 07:27 11/02/24 07:27 11/02/24 07:27 11/02/24 07:27 11/02/24 07:27 11/02/24 07:27 Results Labs 11/02/24 05:56 11/02/24 05:56 Labs: Short CBC 11/02/24 Range/Units 05:56 WBC 3.0 L (3.8-10.6) Thou/mm3 Hgb 12.1 L (13.5-16.0) g/dL Hct 35.1 L (41.0-53.0) % Plt Count 41 L D (140-440) Thou/mm3 BMP 11/02/24 05:56 Sodium 142 Potassium 3.6 Chloride 105 Carbon Dioxide 28.3 BUN 12 Creatinine 0.6 Glucose 141 H Calcium 8.4 Liver Function 11/02/24 Range/Units 05:56 Total Bilirubin 3.3 H D (0.3-1.2) mg/dL AST 26 (0-34) U/L ALT 17 (10-49) U/L Alkaline Phosphatase 79 (46-116) U/L Albumin 3.4 L (3.5-5.0) gm/dL Assessment and Plan Additional Assessment & Plan Additional Plan: 1. Liver lesions noted on imaging studies in patient with history of cirrhosis hepatitis C infection esophageal varices. 2. Biopsy pending of one of the liver lesions. Will check pathology and follow. 3. Thank you for allowing me to evaluate this patient.
[2024-11-02] MEDS: PANTOPRAZOLE INJ 40 MG VIAL IVP (09:34)
[2024-11-02] MEDS: SENNA TABLET 2 TAB PO (09:34)
[2024-11-02] MEDS: INSULIN LISPRO (AdmeLOG) 1 UNIT/0.01 ML UNIT SC (12:24)
--- NOTE | 2024-11-02 14:51 | ESPR_ITS ---
Documentation for date of: 11/02/24 Subjective Subjective Interval history: 11/02/2024: No acute overnight events to report. Patient seen and examined in hospital bed denies having any concerning cardiac symptoms. Patient CT-guided biopsy of the hepatic lesions were postponed secondary to scheduling. Patient is scheduled to receive CT-guided biopsy on 11/03. Gastroenterology on board and are following the patient closely; moreover, the recommendation is to complete the biopsy as their suspicion for HCC is high. There is mention about possibly getting a colonoscopy since the patient is in the hospital; moreover, we will continue to discuss this case with GI and follow-up. Exam Vital Signs Temp Pulse Resp BP Pulse Ox O2 Del Method 97.5 F 80 17 119/71 98 Room Air 11/02/24 11:34 11/02/24 11:34 11/02/24 11:34 11/02/24 11:34 11/02/24 11:34 11/02/24 11:34 Narrative Exam Physical Exam: GENERAL: Awake, answering questions appropriately, slightly jaundiced, appears stated age HEENT: NC/AT. Moist mucosa. PERRLA/EOMI. CARDIO: Heart RRR, no obvious murmurs, no JVD. PULM: No coughing or visible SOB. Lungs CTA B/L. GI: Abdomen soft, NT/ND, liver was not palpated below costophrenic margins, no guarding or rebound tenderness, borborygmi apparent SKIN/MSK/EXT: No wounds/discoloration/rashes/edema/amputations. +Pedal pulses present B/L. NEURO: Oriented x3, Moves extremities x4, no focal neurologic deficits noted Objective Labs 11/02/24 05:56 11/02/24 05:56 Labs: Laboratory Results - last 24 hr 11/01/24 11/02/24 05:40 05:56 WBC 3.0 L RBC 4.25 L Hgb 12.1 L Hct 35.1 L MCV 83 MCH 28.5 MCHC 34.5 RDW Std Deviation 56.6 H Plt Count 41 L D Neut % (Auto) 48 Lymph % (Auto) 35 [place] % (Auto) 13 H Eos % (Auto) 3 Baso % (Auto) 1 Neut # (Auto) 1.5 L Lymph # (Auto) 1.1 [place] # (Auto) 0.4 Eos # (Auto) 0.1 Baso # (Auto) 0.0 Immature Gran # (Auto) 0.01 H Absolute Nucleated RBC 0.00 Immature Gran % 0 Nucleated RBC % 0 PT 14.5 H INR 1.4 H Sodium 142 Potassium 3.6 Chloride 105 Carbon Dioxide 28.3 Anion Gap 9 BUN 12 Creatinine 0.6 Estim Creat Clear Calc 129.6 eGFR > 60 BUN/Creatinine Ratio 20 Glucose 141 H Calculated Osmolality 284 Calcium 8.4 Corrected Calcium 8.9 Phosphorus 2.6 Magnesium 1.9 Total Bilirubin 3.3 H D AST 26 ALT 17 Alkaline Phosphatase 79 Total Protein 7.2 Albumin 3.4 L Globulin 3.8 H Albumin/Globulin Ratio 0.9 L Tumor Marker AFP < 1.30 Carcinoembryonic Ag 2.2 Prostate Specific Ag 0.12 Misc Test Result Platelets confirmed Quality Measures Quality Measures none Assessment & Plan Assessment Current Active Medications: Generic Name Dose Route Start Last Admin Trade Name Freq PRN Reason Stop Dose Admin Acetaminophen 650 mg 10/31/24 22:48 Acetaminophen 325 Mg Tablet PO 11/30/24 22:47 Q6H PRN Pain (1-3) and Fever >101.5 Hydrocodone Bitart/Acetaminophen 1 tab 10/31/24 22:54 11/01/24 19:44 Hydrocodone/Apap 5/325 Tablet PO 11/05/24 22:53 1 tab Q4HR PRN Administration PAIN SCALE 4-6 (Moderate Carvedilol 3.125 mg 11/02/24 17:30 Carvedilol 3.125 Mg Tablet PO 12/02/24 17:29 BIDWM ADARSH Dextrose 25 ml 10/31/24 22:59 Dextrose 50%-Water Inj 50 Ml Syringe IV 11/30/24 22:58 Q15MIN PRN BG 50-70 responsive npo pt Dextrose 50 ml 10/31/24 22:59 Dextrose 50%-Water Inj 50 Ml Syringe IV 11/30/24 22:58 Q15MIN PRN BG <50 OR BG <70 & pt unresponsive Glucagon 1 mg 10/31/24 22:59 Glucagon Inj 1 Mg Vial IM Q15MIN PRN BG <70, and no IV access Insulin Glargine 10 unit 11/02/24 21:00 Insulin Glargine (Lantus) 5 Unit/0.05 Ml (Per 5 Units) SC 12/02/24 20:59 HS ADARSH Insulin Human Lispro 0 unit 11/01/24 07:30 11/02/24 12:24 Insulin Lispro (Admelog) 1 Unit/0.01 Ml Unit SC 12/01/24 07:29 2 unit AC [facility] Administration Protocol Morphine Sulfate 2 mg 10/31/24 22:54 11/01/24 02:56 Morphine Sulf Inj 10 Mg/Ml Vial IVP 11/05/24 22:53 2 mg Q6H PRN Administration PAIN SCALE 7-10 (Severe Ondansetron HCl 4 mg 10/31/24 22:48 Ondansetron Inj 2 Mg/Ml Inj 2 Ml IV 11/30/24 22:47 Q6H PRN NAUSEA OR VOMITING Protocol Pantoprazole Sodium 40 mg 11/01/24 09:00 11/02/24 09:34 Pantoprazole Inj 40 Mg Vial IVP 12/01/24 08:59 40 mg QDAY ADARSH Administration Polyethylene Glycol 17 gm 11/01/24 09:00 11/02/24 09:39 Polyethylene Glycol 17 Gm Packet PO 12/01/24 08:59 Not Given QDAY [facility] Sennosides 2 tab 11/01/24 09:00 11/02/24 09:34 Senna Tablet PO 12/01/24 08:59 2 tab QDAY ADARSH Administration Protocol Plan 54-year-old male with past medical history of esophageal varices (November 2022), Cirrhosis, psoriasis, hepatitis C infection, diabetes, hypertension and claustrophobia who presented to [facility] emergency department on 10/31/2024 with a chief complaint of abdominal pain, patient complains of severe abdominal pain describes it as a dull ache with moderate severity. Patient admitted to hospital for further workup. #Decompensated liver disease #Thrombocytopenia, hyperbilirubinemia, hypoalbuminemia, hypercoagulable #Multiple hepatic lesions, likely metastatic process #History of hepatitis C infection, chronic Patient has history of cirrhosis secondary to hepatitis C History of esophageal varices, had bleeding in November 2022, follows gastroenterology outpatient. Presented with severe abdominal pain, reports history of constipation on and off is on Ozempic outpatient. Platelet count 48, INR 1.3, glucose 247, total bilirubin 3.8, direct bilirubin 0.6, AST 36 MRCP shows cirrhosis, multiple hepatic lesions, cholelithiasis, massive splenomegaly, diffuse hepatic adenopathy Child Ng score: 7 points, Child class B, MELD score 14 points, 6% estimated 3-month mortality CEA and AFP are unremarkable; PSA also negative Plan: Continue home Coreg dose Multimodal pain management Bowel regimen Pending CA 19?9 CT-guided biopsy for lesion lesion GI consulted, appreciate recommendations Oncology consulted, appreciate recommendations #Cholelithiasis As stated above, patient presented with abdominal pain MRCP does show cholelithiasis, consider surgery consult Lab findings include elevated total bilirubin and direct bilirubin On examination, patient does not have any Figueredo sign or abdominal tenderness noted Plan: Will continue monitor for inpatient surgery versus referral for outpatient follow-up with general surgery #Diabetes mellitus, type II [id number] Patient has history of diabetes on Ozempic A1c of 9.0 Plan: SSI Diabetic education #Hypertension Patient on Coreg for hypertension/esophageal varices prophylaxis Plan: Will consider resuming when appropriate #Psoriasis Patient on risankizumab for psoriasis, currently no complaints Plan: Will hold off for now, resume when discharged Hospital Management: DVT prophylaxis: SCDs, no chemical prophylaxis started because of low platelets and history of esophageal varices GI prophylaxis: IV Protonix daily Diet: Low-sodium diet Lines: Peripheral IV Bowel: Senna and MiraLAX Code status: Full code Patient seen and assessed with attending Dr. Laverne Schilling, PGY-1
[2024-11-02] MEDS: HYDROcodone/APAP 5/325 TABLET 1 TAB PO (21:18)
[2024-11-02] MEDS: carVEDILOL 3.125 MG TABLET PO (21:18)
--- NOTE | 2024-11-02 21:22 | ESPR_ITS ---
Documentation for date of: 11/02/24 Subjective Subjective Interval history: Biopsy could not be done today of the liver lesions Biopsy scheduled for tomorrow Will consider invasive GI workup after that Exam Vital Signs Temp Pulse Resp BP Pulse Ox O2 Del Method 97.5 F 80 18 134/73 H 98 Room Air 11/02/24 15:37 11/02/24 21:18 11/02/24 21:00 11/02/24 21:18 11/02/24 21:00 11/02/24 15:37 Objective Labs 11/02/24 05:56 11/02/24 05:56 Labs: Laboratory Results - last 24 hr 11/01/24 11/02/24 05:40 05:56 WBC 3.0 L RBC 4.25 L Hgb 12.1 L Hct 35.1 L MCV 83 MCH 28.5 MCHC 34.5 RDW Std Deviation 56.6 H Plt Count 41 L D Neut % (Auto) 48 Lymph % (Auto) 35 [place] % (Auto) 13 H Eos % (Auto) 3 Baso % (Auto) 1 Neut # (Auto) 1.5 L Lymph # (Auto) 1.1 [place] # (Auto) 0.4 Eos # (Auto) 0.1 Baso # (Auto) 0.0 Immature Gran # (Auto) 0.01 H Absolute Nucleated RBC 0.00 Immature Gran % 0 Nucleated RBC % 0 PT 14.5 H INR 1.4 H Sodium 142 Potassium 3.6 Chloride 105 Carbon Dioxide 28.3 Anion Gap 9 BUN 12 Creatinine 0.6 Estim Creat Clear Calc 129.6 eGFR > 60 BUN/Creatinine Ratio 20 Glucose 141 H Calculated Osmolality 284 Calcium 8.4 Corrected Calcium 8.9 Phosphorus 2.6 Magnesium 1.9 Total Bilirubin 3.3 H D AST 26 ALT 17 Alkaline Phosphatase 79 Total Protein 7.2 Albumin 3.4 L Globulin 3.8 H Albumin/Globulin Ratio 0.9 L Tumor Marker AFP < 1.30 Carcinoembryonic Ag 2.2 Prostate Specific Ag 0.12 Misc Test Result Platelets confirmed Impressions Impression: # Abnormal CT scan of the abdomen pelvis CT-guided biopsy of the liver lesion tomorrow Assessment & Plan A&P Narrative 1. Liver lesions noted on imaging studies in patient with history of cirrhosis hepatitis C infection esophageal varices. 2. Biopsy pending of one of the liver lesions. Will check pathology and follow. 3. Thank you for allowing me to evaluate this patient. Time Spent With Patient Time: Total time spent is greater than 50% in coordination of care (as documented) at patient's floor/unit and/or counseling patient:
[2024-11-02] MEDS: INSULIN GLARGINE (Lantus) 5 UNIT/0.05 ML (PER 5 UNITS) 10 UNIT SC (21:23)
[2024-11-03] VITALS (11 sets, daily range): BP systolic 102–140; BP diastolic 62–81; PULSE 71–85; RESP 16–18; TEMP 36.3–37; O2SAT 95–100
[2024-11-03 06:26] LABS: Basophils % (Auto) 1 % (0-2.5); Eosinophils # (Auto) 0.1 Thou/mm3 (0.0-0.5); Eosinophils % (Auto) 3 % (0-10); Hematocrit 35.6 % (41.0-53.0); Hemoglobin 12.3 g/dL (13.5-16.0); Immature Granulocytes % (Auto) 0 % (0-0); Lymphocytes # (Auto) 0.6 Thou/mm3 (1.0-4.8); Lymphocytes % (Auto) 29 % (10-50); Mean Corpuscular HGB Conc 34.6 g/dl (31.0-37.0); Mean Corpuscular Hemoglobin 28.5 pg (25.0-35.0); Mean Corpuscular Volume 83 fL (80-100); Monocytes # (Auto) 0.5 Thou/mm3 (0.0-0.8); Monocytes % (Auto) 26 % (0-12); Neutrophils # (Auto) 0.8 Thou/mm3 (1.8-7.7); Neutrophils % (Auto) 41 % (37-80); Nucleated Red Blood Cell % 0 /100 WBC (0); RDW Standard Deviation 55.8 fL (35.1-43.9); Red Blood Count 4.31 Miln/mm3 (4.50-5.90)
[2024-11-03 06:32] LABS: INR 1.3 (0.9-1.3); Prothrombin Time 14.4 Seconds (9.0-12.2)
[2024-11-03 06:59] LABS: Alanine Aminotransferase 23 U/L (10-49); Albumin, Serum 3.4 gm/dL (3.5-5.0); Albumin/Globulin Ratio 0.9 (1.2-2.2); Alkaline Phosphatase 81 U/L (46-116); Anion Gap 6 (7-16); Aspartate Amino Transferase 46 U/L (0-34); BUN/Creatinine Ratio 20 Ratio (12-20); Bilirubin,Total 3.1 mg/dL (0.3-1.2); Blood Urea Nitrogen 14 mg/dL (9-23); Calcium 8.2 mg/dL (8.3-10.6); Calcium (Corrected) 8.7 mg/dL (8.5-10.1); Carbon Dioxide 26.5 mMol/L (20.0-31.0); Chloride 106 mMol/L (98-107); Creatinine (Component) 0.7 mg/dL (0.6-1.3); Estimated Creatinine Clearance 111.1 mL/min (>60); Globulin 3.9 gm/dL (2.3-3.5); Glucose 127 mg/dL (74-106); Magnesium 1.8 mg/dL (1.6-2.6); Osmolality,Calculated 278 (275-295); Phosphorous 2.7 mg/dL (2.4-5.1); Potassium 3.8 mMol/L (3.4-5.1); Sodium 138 mMol/L (136-145); Total Protein 7.3 gm/dL (5.7-8.2); eGFR > 60 See Note
--- NOTE | 2024-11-03 07:00 | PC.NURSE ---
wbc=2.0- relayed to day shift rn.
[2024-11-03 07:06] LABS: Platelet Count 39 Thou/mm3 (140-440)
[2024-11-03 07:09] LABS: Slide Review Platelets confirmed
[2024-11-03] MEDS: carVEDILOL 3.125 MG TABLET PO ×2 (09:02→17:35)
[2024-11-03] MEDS: PANTOPRAZOLE INJ 40 MG VIAL IVP (09:03)
--- NOTE | 2024-11-03 13:18 | ESPR_ITS ---
Documentation for date of: 11/03/24 Subjective Subjective Interval history: 11/03/2024: No acute overnight events to report. Patient was seen and assessed in hospital bed in current baseline with no concerning symptoms at this time. Patient's CT-guided biopsy of the hepatic lesions was postponed as the patient's platelet count was too low. As a result, transfused 1 unit of platelets and will plan for ultrasound-guided biopsy on 11/04. GI following the case closely and recommends obtaining colonoscopy as well. Will continue to monitor the patient for any acute changes. Exam Vital Signs Temp Pulse Resp BP Pulse Ox O2 Del Method 97.4 F 71 16 128/73 97 Room Air 11/03/24 12:00 11/03/24 12:00 11/03/24 12:00 11/03/24 12:00 11/03/24 12:00 11/03/24 12:00 Narrative Exam Physical Exam: GENERAL: Awake, answering questions appropriately, slightly jaundiced, appears stated age HEENT: NC/AT. Moist mucosa. PERRLA/EOMI. CARDIO: Heart RRR, no obvious murmurs, no JVD. PULM: No coughing or visible SOB. Lungs CTA B/L. GI: Abdomen soft, NT/ND, liver was not palpated below costophrenic margins, no guarding or rebound tenderness, borborygmi apparent SKIN/MSK/EXT: No wounds/discoloration/rashes/edema/amputations. +Pedal pulses present B/L. NEURO: Oriented x3, Moves extremities x4, no focal neurologic deficits noted Objective Labs 11/03/24 05:29 11/03/24 05:29 Labs: Laboratory Results - last 24 hr 11/03/24 05:29 WBC 2.0 L RBC 4.31 L Hgb 12.3 L Hct 35.6 L MCV 83 MCH 28.5 MCHC 34.6 RDW Std Deviation 55.8 H Plt Count 39 L Neut % (Auto) 41 Lymph % (Auto) 29 [place] % (Auto) 26 H Eos % (Auto) 3 Baso % (Auto) 1 Neut # (Auto) 0.8 L Lymph # (Auto) 0.6 L [place] # (Auto) 0.5 Eos # (Auto) 0.1 Baso # (Auto) 0.0 Immature Gran # (Auto) 0.00 Absolute Nucleated RBC 0.00 Immature Gran % 0 Nucleated RBC % 0 PT 14.4 H INR 1.3 Sodium 138 Potassium 3.8 Chloride 106 Carbon Dioxide 26.5 Anion Gap 6 L BUN 14 Creatinine 0.7 Estim Creat Clear Calc 111.1 eGFR > 60 BUN/Creatinine Ratio 20 Glucose 127 H Calculated Osmolality 278 Calcium 8.2 L Corrected Calcium 8.7 Phosphorus 2.7 Magnesium 1.8 Total Bilirubin 3.1 H AST 46 H ALT 23 Alkaline Phosphatase 81 Total Protein 7.3 Albumin 3.4 L Globulin 3.9 H Albumin/Globulin Ratio 0.9 L Misc Test Result Platelets confirmed Quality Measures Quality Measures none Assessment & Plan Assessment Current Active Medications: Generic Name Dose Route Start Last Admin Trade Name Freq PRN Reason Stop Dose Admin Acetaminophen 650 mg 11/03/24 08:16 Acetaminophen 325 Mg Tablet PO 11/30/24 22:47 Q6H PRN Pain (1-3) and Fever >100.1 Hydrocodone Bitart/Acetaminophen 1 tab 10/31/24 22:54 11/02/24 21:18 Hydrocodone/Apap 5/325 Tablet PO 11/05/24 22:53 1 tab Q4HR PRN Administration PAIN SCALE 4-6 (Moderate Carvedilol 3.125 mg 11/02/24 17:30 11/03/24 09:02 Carvedilol 3.125 Mg Tablet PO 12/02/24 17:29 3.125 mg BIDWM ADARSH Administration Dextrose 25 ml 10/31/24 22:59 Dextrose 50%-Water Inj 50 Ml Syringe IV 11/30/24 22:58 Q15MIN PRN BG 50-70 responsive npo pt Dextrose 50 ml 10/31/24 22:59 Dextrose 50%-Water Inj 50 Ml Syringe IV 11/30/24 22:58 Q15MIN PRN BG <50 OR BG <70 & pt unresponsive Glucagon 1 mg 10/31/24 22:59 Glucagon Inj 1 Mg Vial IM Q15MIN PRN BG <70, and no IV access Insulin Glargine 10 unit 11/02/24 21:00 11/02/24 21:23 Insulin Glargine (Lantus) 5 Unit/0.05 Ml (Per 5 Units) SC 12/02/24 20:59 5 unit HS ADARSH Administration Insulin Human Lispro 0 unit 11/01/24 07:30 11/03/24 11:23 Insulin Lispro (Admelog) 1 Unit/0.01 Ml Unit SC 12/01/24 07:29 Not Given AC [facility] Protocol Morphine Sulfate 2 mg 10/31/24 22:54 11/01/24 02:56 Morphine Sulf Inj 10 Mg/Ml Vial IVP 11/05/24 22:53 2 mg Q6H PRN Administration PAIN SCALE 7-10 (Severe Ondansetron HCl 4 mg 10/31/24 22:48 Ondansetron Inj 2 Mg/Ml Inj 2 Ml IV 11/30/24 22:47 Q6H PRN NAUSEA OR VOMITING Protocol Pantoprazole Sodium 40 mg 11/01/24 09:00 11/03/24 09:03 Pantoprazole Inj 40 Mg Vial IVP 12/01/24 08:59 40 mg QDAY [facility] Administration Polyethylene Glycol 17 gm 11/01/24 09:00 11/03/24 09:03 Polyethylene Glycol 17 Gm Packet PO 12/01/24 08:59 Not Given QDAY [facility] Sennosides 2 tab 11/01/24 09:00 11/03/24 09:03 Senna Tablet PO 12/01/24 08:59 Not Given QDAY [facility] Protocol Plan 54-year-old male with past medical history of esophageal varices (November 2022), Cirrhosis, psoriasis, hepatitis C infection, diabetes, hypertension and claustrophobia who presented to [facility] emergency department on 10/31/2024 with a chief complaint of abdominal pain, patient complains of severe abdominal pain describes it as a dull ache with moderate severity. Patient admitted to hospital for further workup. #Decompensated liver disease #Thrombocytopenia, hyperbilirubinemia, hypoalbuminemia, hypercoagulable #Multiple hepatic lesions, likely metastatic process #History of hepatitis C infection, chronic Patient has history of cirrhosis secondary to hepatitis C History of esophageal varices, had bleeding in November 2022, follows gastroenterology outpatient. Presented with severe abdominal pain, reports history of constipation on and off is on Ozempic outpatient. Platelet count 48, INR 1.3, glucose 247, total bilirubin 3.8, direct bilirubin 0.6, AST 36 MRCP shows cirrhosis, multiple hepatic lesions, cholelithiasis, massive splenomegaly, diffuse hepatic adenopathy Child Ng score: 7 points, Child class B, MELD score 14 points, 6% estimated 3-month mortality CEA and AFP are unremarkable; PSA also negative Plan: 1u of platelet to be transfused Continue home Coreg dose Multimodal pain management Bowel regimen Pending CA 19?9 US-guided biopsy for lesion lesion on 11/04/2024 GI consulted, appreciate recommendations Oncology consulted, appreciate recommendations #Cholelithiasis As stated above, patient presented with abdominal pain MRCP does show cholelithiasis, consider surgery consult Lab findings include elevated total bilirubin and direct bilirubin On examination, patient does not have any Figueredo sign or abdominal tenderness noted Plan: Will continue monitor for inpatient surgery versus referral for outpatient follow-up with general surgery #Diabetes mellitus, type II [id number] Patient has history of diabetes on Ozempic A1c of 9.0 Plan: SSI Diabetic education #Hypertension Patient on Coreg for hypertension/esophageal varices prophylaxis Plan: Will consider resuming when appropriate #Psoriasis Patient on risankizumab for psoriasis, currently no complaints Plan: Will hold off for now, resume when discharged Hospital Management: DVT prophylaxis: SCDs, no chemical prophylaxis started because of low platelets and history of esophageal varices GI prophylaxis: IV Protonix daily Diet: Low-sodium diet Lines: Peripheral IV Bowel: Senna and MiraLAX Code status: Full code Patient seen and assessed with attending Dr. Laverne Schilling, PGY-1
--- NOTE | 2024-11-03 14:51 | PC.SS ---
Rounding: Pending US BX 11/04
[2024-11-03] MEDS: INSULIN LISPRO (AdmeLOG) 1 UNIT/0.01 ML UNIT SC (17:36)
--- NOTE | 2024-11-03 20:35 | PD.IMPROG ---
Documentation for date of: 11/03/24 Subjective Subjective Interval history: Liver biopsy postponed because of the thrombocytopenia at 39,000 Patient will be given backup platelets which was very difficult to arrange So the biopsy for the liver could not be done today Exam Vital Signs Temp Pulse Resp BP Pulse Ox O2 Del Method 97.9 F 78 17 113/62 96 Room Air 11/03/24 20:00 11/03/24 20:00 11/03/24 20:00 11/03/24 20:00 11/03/24 20:00 11/03/24 20:00 Objective Labs 11/03/24 05:29 11/03/24 05:29 Labs: Laboratory Results - last 24 hr 11/03/24 11/03/24 05:29 10:42 WBC 2.0 L RBC 4.31 L Hgb 12.3 L Hct 35.6 L MCV 83 MCH 28.5 MCHC 34.6 RDW Std Deviation 55.8 H Plt Count 39 L Neut % (Auto) 41 Lymph % (Auto) 29 [place] % (Auto) 26 H Eos % (Auto) 3 Baso % (Auto) 1 Neut # (Auto) 0.8 L Lymph # (Auto) 0.6 L [place] # (Auto) 0.5 Eos # (Auto) 0.1 Baso # (Auto) 0.0 Immature Gran # (Auto) 0.00 Absolute Nucleated RBC 0.00 Immature Gran % 0 Nucleated RBC % 0 PT 14.4 H INR 1.3 Sodium 138 Potassium 3.8 Chloride 106 Carbon Dioxide 26.5 Anion Gap 6 L BUN 14 Creatinine 0.7 Estim Creat Clear Calc 111.1 eGFR > 60 BUN/Creatinine Ratio 20 Glucose 127 H Calculated Osmolality 278 Calcium 8.2 L Corrected Calcium 8.7 Phosphorus 2.7 Magnesium 1.8 Total Bilirubin 3.1 H AST 46 H ALT 23 Alkaline Phosphatase 81 Total Protein 7.3 Albumin 3.4 L Globulin 3.9 H Albumin/Globulin Ratio 0.9 L Misc Test Result Platelets confirmed Blood Bank Comment PLATP Ready Impressions Impression: # 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 for the liver biopsy and that is complicating the scheduling and prep for the colonoscopy Assessment & Plan A&P Narrative 1. Liver lesions noted on imaging studies in patient with history of cirrhosis hepatitis C infection esophageal varices. 2. Biopsy pending of one of the liver lesions. Will check pathology and follow. 3. Thank you for allowing me to evaluate this patient. Time Spent With Patient Time: Total time spent is greater than 50% in coordination of care (as documented) at patient's floor/unit and/or counseling patient:
[2024-11-04] VITALS: BP 117/70; PULSE 69; RESP 17; TEMP 36.5; O2SAT 98
[2024-11-04 04:00] VITALS: BP 109/61; PULSE 60; RESP 17; TEMP 36.3; O2SAT 98
[2024-11-04 05:54] LABS: Basophils % (Auto) 1 % (0-2.5); Eosinophils % (Auto) 2 % (0-10); Hematocrit 33.4 % (41.0-53.0); Hemoglobin 11.5 g/dL (13.5-16.0); Immature Granulocytes % (Auto) 0 % (0-0); Lymphocytes # (Auto) 0.8 Thou/mm3 (1.0-4.8); Lymphocytes % (Auto) 43 % (10-50); Mean Corpuscular HGB Conc 34.4 g/dl (31.0-37.0); Mean Corpuscular Hemoglobin 28.5 pg (25.0-35.0); Mean Corpuscular Volume 83 fL (80-100); Monocytes # (Auto) 0.4 Thou/mm3 (0.0-0.8); Monocytes % (Auto) 21 % (0-12); Neutrophils # (Auto) 0.6 Thou/mm3 (1.8-7.7); Neutrophils % (Auto) 33 % (37-80); Nucleated Red Blood Cell % 0 /100 WBC (0); RDW Standard Deviation 55.6 fL (35.1-43.9); Red Blood Count 4.03 Miln/mm3 (4.50-5.90)
[2024-11-04 05:56] LABS: Platelet Count 45 Thou/mm3 (140-440); White Blood Count 1.9 Thou/mm3 (3.8-10.6)
[2024-11-04 06:06] LABS: INR 1.4 (0.9-1.3); Prothrombin Time 14.5 Seconds (9.0-12.2)
[2024-11-04 06:47] LABS: Alanine Aminotransferase 24 U/L (10-49); Albumin, Serum 3.5 gm/dL (3.5-5.0); Albumin/Globulin Ratio 0.9 (1.2-2.2); Alkaline Phosphatase 77 U/L (46-116); Anion Gap 7 (7-16); Aspartate Amino Transferase 43 U/L (0-34); BUN/Creatinine Ratio 19 Ratio (12-20); Bilirubin,Total 2.4 mg/dL (0.3-1.2); Blood Urea Nitrogen 13 mg/dL (9-23); Calcium 8.5 mg/dL (8.3-10.6); Calcium (Corrected) 8.9 mg/dL (8.5-10.1); Carbon Dioxide 26.3 mMol/L (20.0-31.0); Chloride 106 mMol/L (98-107); Creatinine (Component) 0.7 mg/dL (0.6-1.3); Estimated Creatinine Clearance 111.1 mL/min (>60); Globulin 3.7 gm/dL (2.3-3.5); Glucose 113 mg/dL (74-106); Osmolality,Calculated 278 (275-295); Phosphorous 3.1 mg/dL (2.4-5.1); Sodium 139 mMol/L (136-145); Total Protein 7.2 gm/dL (5.7-8.2); eGFR > 60 See Note
[2024-11-04 08:00] VITALS: BP 127/70; PULSE 84; RESP 16; TEMP 36.2; O2SAT 98
[2024-11-04 08:49] VITALS: BP 127/70; PULSE 72
[2024-11-04] MEDS: carVEDILOL 3.125 MG TABLET PO (08:49)
[2024-11-04] MEDS: PANTOPRAZOLE INJ 40 MG VIAL IVP (08:50)
[2024-11-04 09:07] LABS: Slide Review Platelets confirmed
[2024-11-04 12:00] VITALS: BP 112/69; PULSE 67; RESP 16; TEMP 36.4; O2SAT 98
--- NOTE | 2024-11-04 13:22 | ESDS_ITS ---
<Statement entered by Bigg Choudhury MD - 11/04/24 15:21> Patient was examined with the team including attending physician. Note reviewed, I agree with the discharge plan as documented. - Bigg Choudhury MD PGY2 Disclaimer: The document may contain phonetic/typographic errors due to voice recognition software. These errors are purely due to imperfections in the software program and should not be misconstrued in any way to compromise the substance of the patient's medical care during this visit. Planned Discharge Date 11/04/24 DS: Providers Provider Date of admission: 11/02/24 15:05 Primary care physician: Juice Mahoney MD Admitting Provider: Steve Polk MD Attending Provider on Admission: Gladys Galloway MD Consults: 10/31/24 21:14 Consult to Gastroenterology Stat Comment: Abdominal pain Consulting Provider: Tra Henry 11/01/24 10:45 Referral Registered Dietitian Routine Comment: A1c = 9% 11/01/24 10:50 Referral Registered Dietitian Routine Comment: 11/01/24 12:14 Consult to Oncology Routine Comment: Suspicion for HCC vs. metastisis; hx of Hep C Consulting Provider: Juan M Gaona Attending Provider on DC: Cecil Schilling MD Discharging Provider: Cecil Schilling MD DS: Diagnosis Problem List Completed Was Problem List Reviewed/Reconciled?: Yes Hospital Course Hospital Course Hospital course: 54-year-old male with past medical history of esophageal varices, cirrhosis, psoriasis, hepatitis C infection, diabetes, hypertension presented [facility] on 10/31 with chief complaint of abdominal pain. In the ED, patient presented with blood pressure 134/80, normal heart rate, respiratory rate within normal limits, temperature 99.2 ?F and saturating 96 on room air. Pertinent lab findings included platelet count of 48, INR 1.3, bilirubin 3.8, direct bilirubin 0.6, AST 36, urinalysis without any signs of infection. MRCP showed cirrhosis, multiple hepatic lesions, cholelithiasis, splenomegaly and diffuse hepatic adenopathy. Patient was admitted for workup of hepatic lesions and decompensated liver cirrhosis. Patient symptomatically improved since admission; moreover, CEA and AFP tumor markers were negative. Patient had blood transfusion for low hemoglobin levels and multimodal pain management. Ultrasound-guided biopsy of the liver lesions was not completed as the patient's platelets were too low. GI and oncology followed the patient's case closely and recommends colonoscopy outpatient once the patient is discharged. Patient will be discharged stable with the following strict instructions and close follow-up. Please continue taking all home medications as prescribed Continue taking Carvedilol (Coreg) 3.125 mg tablet by mouth twice a day Please follow-up with Dr. Tonie DO at [facility] [address] [place], [place] [id number] If your symptoms worsen or if you develop new chest pain, shortness of breath, abdominal pain or new dizziness - please come back to the ED immediately Hospital Diagnosis: #Decompensated liver disease #Thrombocytopenia, hyperbilirubinemia, hypoalbuminemia, hypercoagulable #Multiple hepatic lesions, likely metastatic process #History of hepatitis C infection, chronic #Cholelithiasis #Diabetes mellitus, type II [id number] #Hypertension #Psoriasis Cecil Schilling, PGY-1 Status at Discharge Overall status at discharge: patient is progressing back to baseline Time Spent with Patient Time attestation: Total time spent providing and/or coordinating discharge services: 45 minutes Time spent: Greater than 30 minutes Exam Vital Signs Temp Pulse Resp BP Pulse Ox O2 Del Method 97.6 F 67 16 112/69 98 Room Air 11/04/24 12:00 11/04/24 12:00 11/04/24 12:00 11/04/24 12:00 11/04/24 12:11/04/24 12:00 Narrative Exam Physical Exam: GENERAL: Awake, answering questions appropriately, slightly jaundiced, appears stated age HEENT: NC/AT. Moist mucosa. PERRLA/EOMI. CARDIO: Heart RRR, no obvious murmurs, no JVD. PULM: No coughing or visible SOB. Lungs CTA B/L. GI: Abdomen soft, NT/ND, liver was not palpated below costophrenic margins, no guarding or rebound tenderness, borborygmi apparent SKIN/MSK/EXT: No wounds/discoloration/rashes/edema/amputations. +Pedal pulses present B/L. NEURO: Oriented x3, Moves extremities x4, no focal neurologic deficits noted Discharge Plan Plan Patient Disposition: HOME (Self Care) Patient condition on transfer: Stable Care Plan Goals: Please continue taking all home medications as prescribed Continue taking Carvedilol (Coreg) 3.125 mg tablet by mouth twice a day Please follow-up with Dr. Tonie DO at [address] [place] [address] If your symptoms worsen or if you develop new chest pain, shortness of breath, abdominal pain or new dizziness - please come back to the ED immediately Prescriptions/Referrals Prescriptions/Med Rec: New carvedilol 3.125 mg Tablet 3.125 mg PO BIDWM 30 Days Qty: 60 0RF Continued pantoprazole 40 mg tablet,delayed release (DR/EC) 40 mg PO QDAY 30 Days Qty: 30 2RF metformin 500 mg tablet extended release 24hr 500 mg PO BID 30 Days Qty: 60 2RF (DME) FreeStyle Keanu 3 Sensor Device See Rx Instructions .Route Qty: 1 2RF Rx Instructions: As directed Skyrizi 150 mg/mL pen injector SUBCUT Ozempic 0.25 mg or 0.5 mg (2 mg/3 mL) pen injector SUBCUT Patient Comments: INJECT 0.25 MG SUBCUTANEOUSLY WEEKLY FOR 42 DAYS Referrals: Juice Mahoney MD [Primary Care Provider] - Tra Henry MD [Physician] - Patient/Caregiver Discharge Instructions Education Materials: Treating Cirrhosis, Understanding Cirrhosis, Discharge Instructions for ... Print Language: Wallisian Stand Alone Forms: Karla Award Info., Patient Portal Info Letter Discharge Order Discharge Orders: Discharge (Routine); Ordered 11/04/24 Ordered By: Cecil Schilling Quality Discharge Quality Measures VTE prophylaxis
[2024-11-04 17:28] LABS: Path Review Blood Smear Sent to Pathologist
--- NOTE | 2024-11-04 23:47 | ESPR_ITS ---
Documentation for date of: 11/04/24 Subjective Subjective Interval history: Late entry for the note Liver biopsy could not be accomplished because of the low platelet count Will try to do that as an outpatient Exam Vital Signs Temp Pulse Resp BP Pulse Ox O2 Del Method 97.6 F 67 16 112/69 98 Room Air 11/04/24 12:00 11/04/24 12:00 11/04/24 12:00 11/04/24 12:00 11/04/24 12:00 11/04/24 12:00 Objective Labs 11/04/24 04:53 11/04/24 04:53 Labs: Laboratory Results - last 24 hr 11/04/24 04:53 WBC 1.9 L RBC 4.03 L Hgb 11.5 L Hct 33.4 L MCV 83 MCH 28.5 MCHC 34.4 RDW Std Deviation 55.6 H Plt Count 45 L Neut % (Auto) 33 L Lymph % (Auto) 43 [place] % (Auto) 21 H Eos % (Auto) 2 Baso % (Auto) 1 Neut # (Auto) 0.6 L Lymph # (Auto) 0.8 L [place] # (Auto) 0.4 Eos # (Auto) 0.0 Baso # (Auto) 0.0 Immature Gran # (Auto) 0.00 Absolute Nucleated RBC 0.00 Immature Gran % 0 Nucleated RBC % 0 Smear Path Review Sent to Pathologist PT 14.5 H INR 1.4 H Sodium 139 Potassium 4.0 Chloride 106 Carbon Dioxide 26.3 Anion Gap 7 BUN 13 Creatinine 0.7 Estim Creat Clear Calc 111.1 eGFR > 60 BUN/Creatinine Ratio 19 Glucose 113 H Calculated Osmolality 278 Calcium 8.5 Corrected Calcium 8.9 Phosphorus 3.1 Magnesium 2.0 Total Bilirubin 2.4 H D AST 43 H ALT 24 Alkaline Phosphatase 77 Total Protein 7.2 Albumin 3.5 Globulin 3.7 H Albumin/Globulin Ratio 0.9 L Misc Test Result Platelets confirmed Impressions Impression: Abnormal CT scan showing multiple lesions in the liver Will follow the patient as an outpatient Assessment & Plan A&P Narrative 1. Liver lesions noted on imaging studies in patient with history of cirrhosis hepatitis C infection esophageal varices. 2. Biopsy pending of one of the liver lesions. Will check pathology and follow. 3. Thank you for allowing me to evaluate this patient. Time Spent With Patient Time: Total time spent is greater than 50% in coordination of care (as documented) at patient's floor/unit and/or counseling patient:
[2024-11-05 06:57] LABS: CA 19-9 Antigen* 28 U/mL (<34)
== END 2024-11-04 15:25 | disposition home or self-care (01) | DRG 443 ==
LOC: SERX 14:25 → S3SX 11-01 06:57 → SERHOLD 11-03 06:14
PROVIDERS: Nurse Practitioner Family; Specialist; Student in an Organized Health Care Education/Training Program; Admitting Provider Student in an Organized Health Care Education/Training Program; Emergency Provider Emergency Medicine; PCP Family Medicine; Visit Provider Internal Medicine
DX: K76.9 Liver disease, unspecified (principal); R16.1 Splenomegaly, not elsewhere classified; R59.9 Enlarged lymph nodes, unspecified; K74.60 Unspecified cirrhosis of liver; D69.6 Thrombocytopenia, unspecified; K59.00 Constipation, unspecified; I10 Essential (primary) hypertension; L40.9 Psoriasis, unspecified; K80.20 Calculus of gallbladder without cholecystitis without obstruction; J98.4 Other disorders of lung; K76.6 Portal hypertension; E10.9 Type 1 diabetes mellitus without complications; B18.2 Chronic viral hepatitis C; D64.9 Anemia, unspecified; F40.240 Claustrophobia; E11.9 Type 2 diabetes mellitus without complications; Z79.85 Long-term (current) use of injectable non-insulin antidiabetic drugs; E88.09 Other disorders of plasma-protein metabolism, not elsewhere classified; Z79.899 Other long term (current) drug therapy; Z79.4 Long term (current) use of insulin
CPT/HCPCS: 36415; 80053; 80061; 81001; 82105; 82248; 82378; 83036; 83690; 83735; 84100; 84153; 84443; 85025; 85610; 86301; 86850; 86900; 86901; 86965; 99285; G0378; J1815; J2270; J2405; J2470; J3475; P9035; S8037; 74181; A9270

== ENCOUNTER 2024-11-10 09:59 | Outpatient (AMB) | payer BC, SELFPAY ==
[2024-11-10 10:19] VITALS: BP 136/77; PULSE 67; RESP 18; TEMP 36.8; O2SAT 98; BMI 20.9
--- NOTE | 2024-11-10 10:19 | PD.RESCLINIC ---
Vital Signs 11/10/24 10:19 Height 1.75 m Height Method Stated Weight 64.524 kg Weight Measurement Method Standing Scale BMI 20.9 BP 136/77 H Blood Pressure Source Automatic Cuff Blood Pressure Location Right Upper Arm Position Sitting Respiration 18 Pulse 67 Pulse Source Monitor Temp 98.2 F Temp Source Temporal Artery Scan Pulse Oximetry (%) 98 Oxygen Delivery Method Room Air Allergies/Meds Allergies & Medications Allergies No Known Allergies Allergy (Verified 11/10/24 10:19) Medication Reconciliation blood-glucose sensor (FreeStyle Keanu 3 Sensor device) #1 ea 05/23/23 [Rx Confirmed 11/10/24] pantoprazole 40 mg tablet,delayed release 40 mg PO QDAY 30 days #30 tabs 05/23/23 [Rx Confirmed 11/10/24] risankizumab-rzaa 150 mg/mL subcutaneous pen injector (Skyrizi) mg subcut 11/01/24 [History Confirmed 11/10/24] carvedilol 3.125 mg tablet 3.125 mg PO BIDWM 1 month #60 tabs 11/04/24 [Rx Confirmed 11/10/24] metformin 500 mg tablet,extended release 24hr (osmotic) 500 mg PO BID 30 days #60 tabs 11/10/24 [Rx] tirzepatide 2.5 mg/0.5 mL subcutaneous pen injector 2.5 mg (0.5 mL) subcut QWEEK 3 months #6.5 mL 11/10/24 [Rx] MA Intake Visit Data Collection New Patient or Established: Established Patient (seen at [facility] within 3 years) Seen by Clinical Staff ONLY (RN/MA): No Pain Present Currently: No Pain scale:: 0 Pain Scale Used: Gallagher-Gupta/Numerical Wood Barker Required: No PCP or OBGYN visit in last 3 months: No Hx Now: No Do You Feel Safe at Home: Yes Authorities Contacted: N/A Smoking Status Smoking Status: Never smoker Immunization / Flu Flu Vaccine in the Last 12 Months: No Flu Vaccine Exclusion Criteria: Refused by Patient Past Medical History Past Medical History NEUROLOGIC: Negative Neurological Disorders or Seizures CARDIAC: Positive Cardiac Disorders and Hypertension; Negative Congestive Heart Failure RESPIRATORY: Negative Chronic Obstructive Pulmonary Disease (COPD) or Asthma GASTROINTESTINAL: Positive Gastrointestinal Disorders, Cirrhosis, Gastrointestinal Bleed, Esophageal Varices and Ulcer GENITOURINARY: Negative Genitourinary Disorders or Renal Disease ENDOCRINE: Negative Endocrine Disorders, Diabetes Mellitus Type 1 or Diabetes Mellitus Type 2 HEMATOLOGIC: Positive Blood Disorders and Anemia; Negative Sickle Cell Disease OTHER HISTORY: Positive Blood Transfusions; Negative Autoimmune Disease, Blood Transfusion Reaction, Anesthesia Reactions, Organ Transplant, MRSA, Clostridium Difficile or Cancer Family History FAMILY HISTORY: Positive Family Cardiac Disorders; Negative Family Psychiatric Problems, Family Respiratory Disorders, Family Gastrointestinal Problems, Family Cancer, Family Surgery or Family Anesthesia Reaction Surgical History SURGICAL: Negative Organ Transplant Social History SMOKING STATUS: Smoking status: Never smoker SECOND HAND EXPOSURE: second hand exposure: No ALCOHOL: Alcohol Intake: Never HOUSING: Housing: Apartment LIVES WITH: Lives With: Family Patient Lorie Garcia Social History Living Situation History Housing: Apartment Housing Other:: Patient resides in an apartment with his brother and son. Tobacco History Smoking Status: Never smoker Second Hand Smoke Exposure: No Alcohol History Alcohol Intake: Never Domestic Abuse History Do You Feel Safe at Home: Yes Review of Systems Report any current symptoms Only answer those that you have currently: Past Medical History Past Medical History Have you ever been diagnosed with any of the following: Neurological Problems Seizures: No Cardiology Problems Congestive Heart Failure: No Hypertension: Yes Respiratory Problems Chronic Obstructive Pulmonary Disease (COPD): No Asthma: No Stomache/Intestinal Problems Cirrhosis: Yes Gastrointestinal Bleed: Yes Esophageal Varices: Yes Ulcer: Yes Genital/Urinary Problems Renal Disease: No Endocrine Problems Diabetes Mellitus Type 1: No Diabetes Mellitus Type 2: No Blood Problems Anemia: Yes Sickle Cell Disease: No Other Problems Autoimmune Disease: No Blood Transfusions: Yes Blood Transfusion Reaction: No Anesthesia Reactions: No Organ Transplant: No MRSA: No Clostridium Difficile: No Cancer: No History of Present Illness HPI Narrative 54-year-old male with past medical history of esophageal varices, cirrhosis, psoriasis, hepatitis C infection, type-2 diabetes, hypertension presenting to [facility] on 11/10/2024 for follow-up after hospital discharge. Patient was discharged after he was admitted for hepatic lesions found on MRCP; tumor markers were negative and unfortunately due to patient's thrombocytopenia no biopsy of the liver was completed. Patient presents today for MR Abdomen and gastroenterolgy referral for colonoscopy (rule out metastatic disease) and to establish care for hepatitis C induced liver cirrhosis. Patient denies having any concerning symptoms at this time and states that he generallt feels well. He has good appetite, no abdominal pain/discomfort, and is exercising/walking regularly. Objective/Exam Narrative Physical exam: Physical Exam: GENERAL: Awake, answering questions appropriately, appears stated age HEENT: NC/AT. Moist mucosa. PERRLA/EOMI. Anicteric sclera CARDIO: Heart RRR, no obvious murmurs, no JVD. PULM: No coughing or visible SOB. Lungs CTA B/L. GI: Abdomen soft, NT/ND, +BS. No hepatosplenomegaly appreciated on exam. SKIN/MSK/EXT: No wounds/discoloration/rashes/edema/amputations. +Pedal pulses present B/L. NEURO: Oriented x3, Moves extremities x4 Assessment & Plan Diagnosis / Problem List (1) Cirrhosis of liver: Status: Acute Qualifiers: Hepatic cirrhosis type: other cirrhosis Qualified Code(s): K74.69 - Other cirrhosis of liver Assessment & Plan: Patient has history of cirrhosis secondary to chronic hepatitis C infection On Coreg 3.125mg po bid for esophageal varice prophylaxis On exam, patient does not have jaundiced skin, anicteric sclera, ascites, gynocomastia, spider angiomas or hepatosplenomegaly Does not appear volume overloaded; BP slightly elevated at 136/77 with HR of 67 (well controlled) Plan: Repeat labs CBC, CMP, Hepatitis panel, PT/pTT/INR Patient has Coreg, will call if needs refill Referred to GI for establishing care Will discuss diuretic need if BP remains elevated on next visit or if patient has edema (2) Hepatic lesion: Status: Acute Assessment & Plan: On MRCP noted to have Cirrhosis, multiple hepatic lesions, differential would include hepatic metastases, multifocal primary hepatocellular carcinoma During hospitalization tumor markers AFP, CEA, CA 19-9 negative/not elevated Unfortunately was not able to get biopsy while inpatient due to thrombocytopenia Plan: GI referral for colonoscopy to rule out metastasis and possible biopsy outpatient MR Abdomen w/contrast ordered (3) Type 2 diabetes mellitus: Status: Acute Qualifiers: 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: without buttermilk drier operator use Diabetes mellitus complication status: with hyperglycemia Qualified Code(s): E11.65 - Type 2 diabetes mellitus with hyperglycemia Assessment & Plan: Poorly controlled type 2 diabetes; home blood sugars range from 140-240 Patient on metformin 500mg ER BID, does not seem to be taking it regularly Also on Ozempic 0.25 with some GI side effects (nausea, abdominal pain) Plan: Repear A1c in 3 months Refilled metformin and councilled on importance of keeping blood sugars stable Discontinued Ozempic, will start Mounjaro (tirzepatide) 2.5mg pen injectables/week and reassess If A1c keeps going up, patient understands that will need insulin Orders: Orders Comprehensive Metabolic Panel Today K74.60 - Unspecified cirrhosis of liver Ambulatory Hemoglobin A1C Today E11.9 - Type 2 diabetes mellitus without complications Prothrombin Time with INR Today MR abdomen w con Today Hepatitis Acute Panel Today Referrals Gastroenterology Office Procedures [facility] Level of Care Nursing/Assessment Patient Status: Established Patient Nursing Assessment/Reassessment: Medication Reconciliation, Update PMH in EMR and Vital Signs Coordination of Care: Complex Care and Chronic Disease 1-5, Consent,records obtained, informed consent, Education Simp Pt/Fam and Staff clarify orders Established Patient Charge Established Patient Point Assignment: 85 Established Patient Point Charge: Level 3 (80-115)
== END 2024-11-10 11:04 | disposition home or self-care (01) ==
LOC: HODAHC 09:59
PROVIDERS: Supervising Provider Internal Medicine
DX: K74.60 Unspecified cirrhosis of liver (principal); I85.10 Secondary esophageal varices without bleeding; K76.89 Other specified diseases of liver; E11.65 Type 2 diabetes mellitus with hyperglycemia; Z79.84 Long term (current) use of oral hypoglycemic drugs; I10 Essential (primary) hypertension; B19.20 Unspecified viral hepatitis C without hepatic coma
CPT/HCPCS: 99213; G0463

== ENCOUNTER 2024-11-24 07:43 | Inpatient (IN) | payer BC, SELFPAY ==
[2024-11-24 07:43] VITALS: BMI 22.1
[2024-11-24 07:56] VITALS: BP 124/76; PULSE 88; RESP 18; TEMP 36.7; O2SAT 100
--- NOTE | 2024-11-24 08:12 | PD.EDRME ---
Rapid Medical Screening Exam E Arrival date/time: 11/24/24 07:43 54-year-old male with a history of hypertension, type 2 diabetes, liver cirrhosis, hepatitis C presents to the emergency room with a chief complaint of vomiting blood and epigastric abdominal pain x 2 days I have greeted and performed a focused initial assessment of this patient. A comprehensive ED assessment and evaluation of the patient, analysis of all test results, and completion of the medical decision making process will be conducted by additional ED providers. Chief Complaint: GI Bleed Vital signs: Vital Signs Temperature 98.1 F 11/24/24 07:56 Pulse Rate 88 11/24/24 07:56 Respiratory Rate 18 11/24/24 07:56 Blood Pressure 124/76 11/24/24 07:56 Pulse Oximetry (%) 100 11/24/24 07:56 Oxygen Delivery Method Room Air 11/24/24 07:56 Vital signs reviewed by provider: Yes
[2024-11-24 08:44] LABS: INR 1.4 (0.9-1.3); Partial Thromboplastin Time 28.8 Seconds (22.0-36.0); Prothrombin Time 15.3 Seconds (9.0-12.2)
[2024-11-24 08:45] LABS: Basophils # (Auto) 0.1 Thou/mm3 (0.0-0.2); Basophils % (Auto) 1 % (0-2.5); Eosinophils # (Auto) 0.1 Thou/mm3 (0.0-0.5); Eosinophils % (Auto) 1 % (0-10); Hematocrit 33.1 % (41.0-53.0); Hemoglobin 11.2 g/dL (13.5-16.0); Immature Granulocytes % (Auto) 0 % (0-0); Immature Granulocytes Auto 0.01 Thou/mm3 (0.00-0.00); Lymphocytes # (Auto) 2.2 Thou/mm3 (1.0-4.8); Lymphocytes % (Auto) 31 % (10-50); Mean Corpuscular HGB Conc 33.8 g/dl (31.0-37.0); Mean Corpuscular Hemoglobin 28.9 pg (25.0-35.0); Mean Corpuscular Volume 86 fL (80-100); Monocytes # (Auto) 0.6 Thou/mm3 (0.0-0.8); Monocytes % (Auto) 9 % (0-12); Neutrophils # (Auto) 4.2 Thou/mm3 (1.8-7.7); Neutrophils % (Auto) 59 % (37-80); Nucleated Red Blood Cell % 0 /100 WBC (0); Platelet Count 87 Thou/mm3 (140-440); RDW Standard Deviation 55.5 fL (35.1-43.9); Red Blood Count 3.87 Miln/mm3 (4.50-5.90); White Blood Count 7.2 Thou/mm3 (3.8-10.6)
[2024-11-24 08:58] LABS: Alanine Aminotransferase 31 U/L (10-49); Albumin, Serum 3.5 gm/dL (3.5-5.0); Albumin/Globulin Ratio 1.1 (1.2-2.2); Alkaline Phosphatase 83 U/L (46-116); Anion Gap 10 (7-16); Aspartate Amino Transferase 49 U/L (0-34); BUN/Creatinine Ratio 33 Ratio (12-20); Bilirubin,Total 2.7 mg/dL (0.3-1.2); Blood Urea Nitrogen 23 mg/dL (9-23); Calcium 8.7 mg/dL (8.3-10.6); Calcium (Corrected) 9.1 mg/dL (8.5-10.1); Carbon Dioxide 27.8 mMol/L (20.0-31.0); Chloride 104 mMol/L (98-107); Creatinine (Component) 0.7 mg/dL (0.6-1.3); Estimated Creatinine Clearance 114.7 mL/min (>60); Globulin 3.3 gm/dL (2.3-3.5); Glucose 169 mg/dL (74-106); Lipase 27 U/L (12-53); Osmolality,Calculated 290 (275-295); Sodium 142 mMol/L (136-145); Total Protein 6.8 gm/dL (5.7-8.2); eGFR > 60 See Note
--- NOTE | 2024-11-24 11:20 | EDNOTE_ITS ---
ED General RME/HPI General Chief complaint: GI Bleed Stated complaint: DIARRHEA X1DAY WITH HEMATEMESIS SINCE THIS AM Arrival date/time: 11/24/24 07:43 RME / HPI RME / HPI narrative: 11/24/24 07:43 54-year-old male with a history of hypertension, type 2 diabetes, liver cirrhosis, hepatitis C presents to the emergency room with a chief complaint of vomiting blood and epigastric abdominal pain x 2 days I have greeted and performed a focused initial assessment of this patient. A comprehensive ED assessment and evaluation of the patient, analysis of all test results, and completion of the medical decision making process will be conducted by additional ED providers. DR. MAIER MAIN ED EVALUATION: 54 year old male with past medical history of esophageal varices, cirrhosis, psoriasis, hepatitis C infection, diabetes, and hypertension presents to the Emergency Department with complaint of sharp abdominal pain that has been intermittent onset 3 days lasting about 30 minutes and then going away. Yesterday starting at 7 PM, he also had diarrhea and nausea, he does mention dark diarrhea. This morning at 7 AM, he had x1 episode of vomiting blood, states it was a lot. Related Data Home Medications ?Medication ?Instructions ?Recorded ?Confirmed risankizumab-rzaa 150 mg/mL mg subcut 11/01/24 5 subcutaneous pen injector (Skyrizi) Previous Rx's ?Medication ?Instructions ?Recorded blood-glucose sensor (FreeStyle #1 ea 05/23/23 Keanu 3 Sensor device) pantoprazole 40 mg tablet,delayed 40 mg PO QDAY 30 day s #30 tabs 05/23/23 release carvedilol 3.125 mg tablet 3.125 mg PO BIDWM 1 month # 60 tabs 11/04/24 tirzepatide 2.5 mg/0.5 mL 2.5 mg (0.5 mL) subcut QWEEK 3 11/10/24 subcutaneous pen injector months #6.5 mL metformin 500 mg tablet 500 mg PO BIDWMEAL 1 month # 60 tabs 11/12/24 Allergies Allergy/AdvReac Type Severity Reaction Status Date / Time No Known Allergies Allergy Verified 11/24/24 07:46 Review of Systems Review of Systems Systems Reviewed: All systems reviewed, normal except as documented Narrative Review of Systems: GEN: No fever, no chills, no weight loss EYES: No discharge, no visual changes, no pain HEENT: No ear pain, no congestion, no sore throat PULM: No shortness of breath, no cough, no congestion CV: No chest pain, no dyspnea on exertion, no palpitations GI: + nausea, + vomiting blood (see HPI), + diarrhea/ dark (see HPI), + sharp abdominal pain, no constipation : No frequency, no urgency and no dysuria MUSC/SKEL: No joint pain, no back pain SKIN: No rash PSYCH: No hallucinations, no depression HEME/LYMPH: No easy bleeding or bruising tendencies NEURO: No weakness, no headache Past Medical History Past Medical History CARDIAC: Positive Cardiac Disorders and Hypertension GASTROINTESTINAL: Positive Gastrointestinal Disorders, Cirrhosis, Gastrointestinal Bleed, Esophageal Varices and Ulcer HEMATOLOGIC: Positive Blood Disorders and Anemia OTHER HISTORY: Positive Blood Transfusions Family History FAMILY HISTORY: Positive Family Cardiac Disorders Social History SMOKING STATUS: Never smoker SECOND HAND EXPOSURE: No SUBSTANCE USE: does not use ALCOHOL: Never ED Exam Narrative Physical exam: GENERAL APPEARANCE: alert and oriented x 4, well-developed, well-nourished, mild pallor, grimace from pain VITALS: All vitals were reviewed and the pulse ox is 100% on room air, which is normal according to my interpretation. HEENT: Normocephalic, atraumatic; pupils equal, round, reactive to light; EOMI; mucous membranes pink, moist; oropharynx clear NECK: Supple LUNGS: CTABL; no wheezes, no rales, no rhonchi HEART: Regular rate, regular rhythm; normal S1, S2; no murmurs ABDOMEN: non distended; normal BS; soft, no tenderness, no guarding, no rebound; no masses, no organomegaly, no hernia BACK: no CVA tenderness EXTREMITIES: atraumatic; no edema NEUROLOGIC: awake; alert and oriented x4; cranial nerves II-XII grossly intact; no focal sensory or motor deficits PSYCHIATRIC: appropriate mood and affect SKIN: warm, dry, mild pallor; no rashes Course Quality Measures none Orders Category Date Time Status Admit to Inpatient Status Routine Admission 11/24/24 11:45 Active Patient Condition Routine Admission 11/24/24 11:45 Ordered Activity as Tolerated Routine Care 11/24/24 11:45 Ordered Bedside Blood Glucose Q6HR Care 11/24/24 11:48 Active Blood Sugar Check-Sandostatin Q1HR Care 11/24/24 12:00 Active Continuous Pulse Oximetry NOW Care 11/24/24 11:45 Completed Flu & Pneumonia Vaccine Screen ONCE Care 11/24/24 11:45 Active Insert IV NOW Care 11/24/24 11:58 Active NPO NOW Care 11/24/24 11:45 Active Notify provider NEEDED Care 11/24/24 11:45 Active Obtain weight daily Care 11/24/24 11:45 Active Sequential Compression Device QSHIFT Care 11/24/24 11:45 Active Consult to Gastroenterology Stat Cons 11/24/24 11:42 Ordered Diet NPO (NOW) Diet 11/24/24 11:45 Active CBC AM DRAW Lab 11/25/24 05:00 Ordered CBC AM DRAW Lab 11/26/24 05:00 Ordered CBC AM DRAW Lab 11/27/24 05:00 Ordered CBC Stat Lab 11/24/24 08:17 Completed CMP [Comprehensive Metabolic Panel] Stat Lab 11/24/24 08:17 Completed Comprehensive Metabolic Panel AM DRAW Lab 11/25/24 05:00 Ordered Comprehensive Metabolic Panel AM DRAW Lab 11/26/24 05:00 Ordered Comprehensive Metabolic Panel AM DRAW Lab 11/27/24 05:00 Ordered Lipase Stat Lab 11/24/24 08:17 Completed Magnesium AM DRAW Lab 11/25/24 05:00 Ordered PT [Prothrombin Time with INR] Stat Lab 11/24/24 08:17 Completed PTT [Partial Thromboplastin Time] Stat Lab 11/24/24 08:17 Completed Phosphorous AM DRAW Lab 11/25/24 05:00 Ordered Prothrombin Time with INR AM DRAW Lab 11/25/24 05:00 Ordered Type and Screen Stat Lab 11/24/24 11:46 Completed UA [Urinalysis] Stat Lab 11/24/24 11:11 Completed Urine Culture Stat Lab 11/24/24 11:11 Received Dextrose 50% Syr [D50w Syringe Abboject] Med 11/24/24 11:48 Active 25 ml IV Q15MIN PRN Dextrose 50% Syr [D50w Syringe Abboject] Med 11/24/24 11:48 Active 50 ml IV Q15MIN PRN Glucagon Inj Med 11/24/24 11:48 Active 1 mg IM Q15MIN PRN INSULIN LISPRO (AdmeLOG) [HumaLOG] Med 11/24/24 12:00 Active See Protocol SC Q6HR Octreotide Acet Inj [SandoSTATIN Inj] Med 11/24/24 11:36 Discontinued 50 mcg IV X1 ONE Ondansetron Inj [Zofran Inj] Med 11/24/24 11:45 Active 4 mg IVP Q6H PRN Pantoprazole Inj [Protonix Inj] Med 11/24/24 11:36 Discontinued 80 mg IVP X1 ONE Pantoprazole/Ns 80Mg IV Premix [Protonix/NS 80mg IV Med 11/24/24 11:36 Active Premix] 80 mg in 100 ml IV X1 Sodium Chloride 0.9% 1000 ml [Ns] 1,000 ml Med 11/24/24 11:36 Discontinued IV 999 mls/hr Sodium Chloride 0.9% [Ns] 100 ml Med 11/24/24 11:37 Active Octreotide Acet Inj [SandoSTATIN Inj] 1,000 mcg IV 50 mcg/hr Code Status Routine Oth 11/24/24 11:45 Ordered Vital Signs Vital signs: Vital Signs Temperature 98.1 F 11/24/24 07:56 Pulse Rate 88 11/24/24 07:56 Respiratory Rate 18 11/24/24 07:56 Blood Pressure 124/76 11/24/24 07:56 Pulse Oximetry (%) 100 11/24/24 07:56 Oxygen Delivery Method Room Air 11/24/24 07:56 Discharge Plan Plan Patient Disposition: Admit Acute Care w/in Hospital Problem List Clinical Impression: Acute upper GI bleed [facility] Narrative [facility] hospital course: I, Rose Escobar, leann scribing for and in the presence of Dr. Maier. Clinical Information Provided by patient Medical Records Reviewed [facility] Meds/Rx Considered, not Ordered None Labs/Rad/Tests considered, not Ordered None Chronic Illness/Social Conditions Add or document further as needed: esophageal varices, cirrhosis, psoriasis, hepatitis C infection, diabetes, and hypertension Medication Administration(s) Medication Administration History Dextrose (Dextrose 50%-Water Inj 50 Ml Syringe) 25 ml IV Q15MIN PRN PRN Reason: BG 50-70 responsive npo pt Stop: 12/24/24 11:47 Dextrose (Dextrose 50%-Water Inj 50 Ml Syringe) 50 ml IV Q15MIN PRN PRN Reason: BG <50 OR BG <70 & pt unresponsive Stop: 12/24/24 11:47 Glucagon (Glucagon Inj 1 Mg Vial) 1 mg IM Q15MIN PRN PRN Reason: BG <70, and no IV access Pantoprazole Sodium (Protonix/Ns 80mg Iv Premix) 80 mg in 100 mls @ 10 mls/hr IV X1 ONE Stop: 11/24/24 21:35 Last Admin: 11/24/24 12:05 Dose: 10 mls/hr Documented By: ALEIDA Octreotide Acetate 1,000 mcg/ (Sodium Chloride) 102 mls @ 5.1 mls/hr IV .Q20H ONE; Protocol Stop: 11/25/24 07:36 Last Admin: 11/24/24 12:12 Dose: 50 mcg/hr, 5.1 mls/hr Documented By: JACKIE Insulin Human Lispro (Insulin Lispro (Admelog) 1 Unit/0.01 Ml Unit) 0 unit SC Q6HR ADARSH; Protocol Stop: 12/24/24 11:59 Last Admin: 11/24/24 12:14 Dose: Not Given Documented By: JACKIE Non-Admin Reason: NPO Ondansetron HCl (Ondansetron Inj 2 Mg/Ml Inj 2 Ml) 4 mg IVP Q6H PRN; Protocol PRN Reason: NAUSEA OR VOMITING Stop: 12/24/24 11:44 Last Admin: 11/24/24 12:16 Dose: 4 mg Documented By: ALEIDA Discontinued Medications Sodium Chloride (Ns) 1,000 mls @ 999 mls/hr IV .Q1H1M ONE Stop: 11/24/24 12:36 Last Admin: 11/24/24 12:19 Dose: 999 mls/hr Documented By: ALEIDA Octreotide Acetate (Octreotide Acet Inj 50 Mcg/Ml Vial) 50 mcg IV X1 ONE Stop: 11/24/24 11:37 Last Admin: 11/24/24 12:05 Dose: 50 mcg Documented By: ALEIDA Pantoprazole Sodium (Pantoprazole Inj 40 Mg Vial) 80 mg IVP X1 ONE Stop: 11/24/24 11:37 Last Admin: 11/24/24 12:05 Dose: 80 mg Documented By: ALEIDA Consultations/Discussions re: Management Consult #1: Date/time: 11/24/24 11:39 am Physician, specialty, service, details: Discussed test HPI, PMHx, lab, radiology results and/or management with Dr. Henry. Will consult an admission to the hospitalist. Consult #2: Date/time: 11/24/24 11:41 am Physician, specialty, service, details: Discussed test HPI, PMHx, lab, radiology results and/or management with resident working with the hospitalist. Will admit for further evaluation and management. Accepts patient for admission. Diagnosis Differential diagnosis: upper GI bleed, lower GI bleed, dehydration Most likely dx, and/or detailed dx discussion: Upper GI bleed Dispositon Disposition: Admit
[2024-11-24 11:29] LABS: Collection Type, Urine Clean Catch; Squamous Epithelial Cell,Urine 0 /hpf (0-5)
--- NOTE | 2024-11-24 11:47 | ESHP_ITS ---
Documentation for date of: 11/24/24 HPI History of Present Illness Chief complaint: Hematemesis, melena History of present illness: 54-year-old male with past medical history esophageal varices, cirrhosis, psoriasis, hepatitis C infection, [id number] type II diabetes, hypertension presenting to the ED on 11/24 with an episode of hematemesis and melena. Patient states that roughly 3 days ago he started feeling unwell with some episodes of nausea, body aches and poor appetite. Patient was having on and off diarrhea during those 3 days going to the bathroom several times a day. At 7 PM on 11/23 had an episode of bright red vomiting. Patient had an appointment with Dr. Henry, gastroenterology, for close follow-up for hepatitis C induced liver cirrhosis with liver lesions pending MRI. Prior to these episodes, patient states that after discharge she has been feeling well. Patient apparently has started also taking new vitamins which include Iberogast and Liver Support. He states he started taking these vitamins about a week ago and generally felt well after taking them. Patient denies any sick contacts, recent travel or any new dietary changes. Patient also denies having any chest pain, shortness of breath, palpitations or syncope. Past medical history: Esophageal varices (November 2022), Cirrhosis, psoriasis, hepatitis C infection and claustrophobia Past surgical history: 2 back surgeries, left shoulder surgery in 1999 Allergies: No known drug and food allergies Medications: Carvedilol 3.125 mg p.o. twice daily, metformin 500 mg p.o. twice daily Family History: Denies any significant family history Social history: Denies any smoking tobacco, alcohol use or illicit drug use. 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 Pertinent lab findings included WBC 7.2, hemoglobin 11.2 with MCV of 86, platelet 87, PT 15.3, INR 1.4, BUN 23, creatinine 0.7, total bilirubin 2.7, AST 49, ALT 31, alk phos 83 albumin 3.5, lipase 27. Urine cultures negative for any signs of infection. Patient will be admitted for upper GI bleed likely secondary to esophageal varices with GI consulted for upper endoscopy. Exam Vital Signs Temp Pulse Resp BP Pulse Ox O2 Del Method 98.1 F 88 18 124/76 100 Room Air 11/24/24 07:56 11/24/24 07:56 11/24/24 07:56 11/24/24 07:56 11/24/24 07:56 11/24/24 07:56 Narrative Exam Physical Exam: GENERAL: Awake, answering questions appropriately, slightly jaundiced, appears stated age HEENT: NC/AT. Moist mucosa. PERRLA/EOMI. CARDIO: Heart RRR, no obvious murmurs, no JVD. PULM: No coughing or visible SOB. Lungs CTA B/L. GI: Abdomen soft, NT/ND, liver was not palpated below costophrenic margins, no guarding or rebound tenderness, borborygmi apparent SKIN/MSK/EXT: No wounds/discoloration/rashes/edema/amputations. +Pedal pulses present B/L. NEURO: Oriented x3, Moves extremities x4, no focal neurologic deficits noted Results: Labs 11/25/24 04:47 11/25/24 04:47 Labs: Short CBC 11/24/24 Range/Units 08:17 WBC 7.2 (3.8-10.6) Thou/mm3 Hgb 11.2 L (13.5-16.0) g/dL Hct 33.1 L (41.0-53.0) % Plt Count 87 L D (140-440) Thou/mm3 BMP 11/24/24 08:17 Sodium 142 Potassium 4.0 Chloride 104 Carbon Dioxide 27.8 BUN 23 Creatinine 0.7 Glucose 169 H Calcium 8.7 Liver Function 11/24/24 Range/Units 08:17 Total Bilirubin 2.7 H (0.3-1.2) mg/dL AST 49 H (0-34) U/L ALT 31 (10-49) U/L Alkaline Phosphatase 83 (46-116) U/L Albumin 3.5 (3.5-5.0) gm/dL Quality Measures Quality Measures VTE prophylaxis Medications Home Medications and Allergies Allergies Allergy/AdvReac Type Severity Reaction Status Date / Time No Known Allergies Allergy Verified 11/24/24 07:46 Visit Medications Pantoprazole Sodium (Protonix/Ns 80mg Iv Premix) 80 mg in 100 mls @ 10 mls/hr IV X1 ONE Stop: 11/24/24 21:35 Octreotide Acetate 1,000 mcg/ (Sodium Chloride) 102 mls @ 5.1 mls/hr IV .Q20H ONE; Protocol Stop: 11/25/24 07:36 Sodium Chloride (Ns) 1,000 mls @ 999 mls/hr IV .Q1H1M ONE Stop: 11/24/24 12:36 Discontinued Medications Octreotide Acetate (Octreotide Acet Inj 50 Mcg/Ml Vial) 50 mcg IV X1 ONE Stop: 11/24/24 11:37 Pantoprazole Sodium (Pantoprazole Inj 40 Mg Vial) 80 mg IVP X1 ONE Stop: 11/24/24 11:37 Assessment & Plan Plan 54-year-old male with past medical history of esophageal varices (November 2022), Cirrhosis, psoriasis, hepatitis C infection, diabetes, hypertension and claustrophobia who presented to [facility] emergency department on 10/31/2024 with a chief complaint of abdominal pain, patient complains of severe abdominal pain describes it as a dull ache with moderate severity. Patient admitted to hospital for further workup. #Acute blood loss anemia #Esophageal variceal bleed As per HPI above, patient has been having melena and hematochezia for the past couple days or so As stated below, patient has history of cirrhosis secondary to hepatitis C infection with esophageal varices Differential diagnosis for hematemesis at this time remains likely secondary to esophageal varices versus Lora-Gomez tear, Boerhaave syndrome less likely Patient states that he takes his Coreg regularly for esophageal varices prophylaxis Was supposed to follow-up with Dr. Henry this afternoon, gastroenterology but came to the ED instead secondary to the hematemesis Hgb of 11.2 with MCV of 86 In the ED, patient was started on Protonix and octreotide drip Plan: GI, Dr. Henry consulted, appreciate recommendations Continue IV Protonix and IV octreotide drip N.p.o. Tentatively scheduled EGD with Dr. Henry Monitor H&H Transfuse if hemoglobin less than 7 #Decompensated liver disease #Thrombocytopenia, hyperbilirubinemia, hypoalbuminemia, hypercoagulable #Multiple hepatic lesions, likely metastatic process #History of hepatitis C infection, chronic Patient has history of cirrhosis secondary to hepatitis C History of esophageal varices, had bleeding in November 2022, follows gastroenterology outpatient. MRCP shows cirrhosis, multiple hepatic lesions, cholelithiasis, massive splenomegaly, diffuse hepatic adenopathy Child Ng score: 7 points, Child class B, MELD score 14 points, 6% estimated 3-month mortality Tumor markers were negative on last admission Has been taking supplements; Liver Support and Iberogast Plan: MRI abdomen with contrast #Diabetes mellitus, type II vow-dawykqo-tfibdninn Patient has history of diabetes on Ozempic, was switched to Mounjaro but has not been taking it Patient states that home glucose readings have been between 120 and 190 with morning glucose reads between 90 and 110 Patient only takes metformin 500 mg p.o. twice daily Last A1c of 9.0 Plan: SSI Diabetic education #Hypertension Patient on Coreg for hypertension/esophageal varices prophylaxis Plan: Will consider resuming when appropriate #Psoriasis Patient on risankizumab for psoriasis, currently no complaints Plan: Will hold off for now, resume when discharged Hospital Management: DVT prophylaxis: SCDs, no chemical prophylaxis started because of low platelets and history of esophageal varices GI prophylaxis: Protonix and octreotide drip Diet: N.p.o. Lines: Peripheral IV Bowel: Senna Code status: Full code Patient seen and assessed with attending Dr. Nathan Schilling, PGY-1 Attending Provider Attestation/Addendum Catherine Camacho, DO, attest that I was physically present for the rocha portions of the service and evaluated the patient with the resident and I reviewed and discussed the case with the resident and agree with the resident's findings and plans of care as documented above Patient is a 54-year-old male with past medical history of esophageal varices, cirrhosis, psoriasis, hep C infection and NIDDM type II and hypertension who came to the ED due to an episode of hematemesis that began this morning. Patient was due to see his GI this afternoon. However, patient came to the ED due to the nausea and vomiting. Patient denies previous episodes in the past. Patient had another episode of hematemesis in the ED. Patient states that he was recently admitted for workup of decompensated cirrhosis and hepatic lesions. Patient states he was treated for hepatitis C in the past 7 years ago. During previous visit, biopsy had been ordered for hepatic lesion, but unable to perform due to thrombocytopenia. Hemoglobin on presentation was 11.2, but down trended to 9.3. Will type and cross and trend H&H. GI was consulted from the ED. Will admit patient to telemetry for further workup and medical management of acute GI bleed with suspicion for esophageal varices will bleed. Will place patient on octreotide and pantoprazole. Patient will be n.p.o. Will order MRI of abdomen with contrast to assess hepatic lesions. Patient states that he had been on tirzepatide leading to unintentional weight loss. However, since he has stopped the medication and was discharged from hospital, patient has regained about 17 pounds. He denies any issues with p.o. intake.
[2024-11-24 11:48] LABS: Bilirubin,Urine Negative (Negative); Blood,Urine Negative (Negative); Clarity,Urine Clear (Clear/Hazy); Color,Urine Yellow (Lt Yel-Yel); Glucose, Urine Trace (Negative); Ketones,Urine 2+ (Negative); Leukocyte Esterase,Urine Negative (Negative); Nitrite,Urine Negative (Negative); Protein,Urine 1+ (Neg - Trace); RBC,Urine 1 /hpf (0-3); Specific Gravity,Urine 1.037 (1.001-1.035); Urobilinogen,Urine Negative mg/dL (0.0-1.0); WBC,Urine 3 /hpf (0-5)
[2024-11-24] MEDS: PANTOPRAZOLE/NS 80MG IV PREMIX 80 MG/100 ML BAG 10 MG IV ×2 (12:05→21:40)
[2024-11-24] MEDS: PANTOPRAZOLE INJ 40 MG VIAL 80 MG IVP (12:05)
[2024-11-24] MEDS: OCTREOTIDE ACET INJ 50 mCg/ML VIAL IV (12:05)
[2024-11-24] MEDS: OCTREOTIDE ACET INJ 1,000 MCG in SODIUM CHLORIDE 0.9% 100 ML 5.1 MCG IV (12:12)
[2024-11-24] MEDS: ONDANSETRON INJ 2 MG/ML INJ 2 ML 4 MG IVP (12:16)
[2024-11-24] MEDS: SODIUM CHLORIDE 0.9% 1000 ML 1,000 ML 999 ML IV (12:19)
--- NOTE | 2024-11-24 13:29 | XR_ITS ---
Examination: MRI abdomen , with intravenous contrast. Exam date and time: November 24, 2024 1718 hours INDICATIONS: Diagnosis cirrhosis, chronic hepatitis C, elevated total bilirubin, gastrointestinal bleeding, multiple hepatic lesions on the MRI abdomen without contrast October 31, 2024 Technique: Multiple axial, sagittal and coronal images of the abdomen have been obtained with the Siemens high-resolution 1.5 Afshan MRI scanner. . Axial, sagittal and coronal images are obtained post intravenous injection 20 cc gadolinium. Findings: Cirrhosis, liver irregular in contour multiple liver lesions throughout the entire liver, which are actually hypointense on the post contrast imaging Significant splenomegaly No common hepatic or common bile duct stones Gallbladder wall appears mildly thickened Mild fluid subcapsular to the liver No hydronephrosis Aorta normal size IMPRESSION: Multiple relatively nonenhancing liver lesions, differential would include multifocal primary hepatocellular carcinoma, hepatic metastases These lesions are amenable to CT-guided percutaneous biopsy as clinically warranted
[2024-11-24 16:00] VITALS: BP 117/76; PULSE 69; PULSE 71; RESP 16; TEMP 36.5; O2SAT 99
[2024-11-24 16:29] LABS: Hematocrit 27.1 % (41.0-53.0); Hemoglobin 9.3 g/dL (13.5-16.0)
--- NOTE | 2024-11-24 19:44 | ESCONSULT_ITS ---
HPI Data of Consult Requesting Physician: Catherine Evans DO Primary Care Provider: Juice Mahoney MD Consult Narrative Reason for consult: Melena hematemesis diarrhea History of present illness: 54 years old male well-known to me from my previous encounters with him with previous history of allocations esophageal varices He has chronic liver disease secondary to hepatitis C with undetectable titers of the hep C RNA by PCR He presented to the emergency room with melanotic stools 1 episode of hematemesis His hemoglobin and hematocrit which was 11.2 and 33.1 which is gone down to 9.3 and 27.1 Started on octreotide and IV Protonix n.p.o. cc:: cc: Catherine Evans DO Review of Systems Review of Systems Systems Reviewed: All systems reviewed, normal except as documented Past Medical History Surgical History OTHER SURGICAL HX: History of present illness Meds Home Medications and Allergies Allergies Allergy/AdvReac Type Severity Reaction Status Date / Time No Known Allergies Allergy Verified 11/24/24 07:46 Exam Vital Signs Temp Pulse Resp BP Pulse Ox O2 Del Method 97.7 F 71 16 117/76 99 Room Air 11/24/24 16:00 11/24/24 16:00 11/24/24 16:00 11/24/24 16:00 11/24/24 16:00 11/24/24 16:00 Constitutional Comments: Chronically ill-appearing Routine Respiratory Exam Comments: Normal to auscultation Routine Abdominal Exam Comments: Positive bowel sounds Results Labs 11/26/24 04:41 11/26/24 04:41 Labs: Short CBC 11/24/24 11/24/24 Range/Units 08:17 16:07 WBC 7.2 (3.8-10.6) Thou/mm3 Hgb 11.2 L 9.3 L (13.5-16.0) g/dL Hct 33.1 L 27.1 L (41.0-53.0) % Plt Count 87 L D (140-440) Thou/mm3 BMP 11/24/24 08:17 Sodium 142 Potassium 4.0 Chloride 104 Carbon Dioxide 27.8 BUN 23 Creatinine 0.7 Glucose 169 H Calcium 8.7 Liver Function 11/24/24 Range/Units 08:17 Total Bilirubin 2.7 H (0.3-1.2) mg/dL AST 49 H (0-34) U/L ALT 31 (10-49) U/L Alkaline Phosphatase 83 (46-116) U/L Albumin 3.5 (3.5-5.0) gm/dL Urine 11/24/24 Range/Units 11:11 Urine Color Yellow (Lt Yel-Yel) Urine Clarity Clear (Clear/Hazy) Urine pH 6.0 (5.0-7.0) Ur Specific [place] 1.037 H (1.001-1.035) Urine Protein 1+ A (Neg - Trace) Urine Glucose (UA) Trace (Negative) Assessment and Plan Additional Assessment & Plan Additional Plan: # Hematemesis # Melena in the setting of chronic liver disease secondary to hepatitis C Plan Octreotide infusion at 50 mcg/h Continue IV Protonix N.p.o. except for ice chips Consent obtained for fiberoptic esophagogastroduodenoscopy with possible therapeutic intervention possible biopsy under intravenous moderate sedation scheduled for tomorrow morning Serial CBC Other medical problems include Diabetes mellitus type 2 Essential hypertension Thank you very much for the opportunity to participate in the care of this patient
[2024-11-24 20:00] VITALS: BP 122/68; PULSE 65; PULSE 66; RESP 18; TEMP 37; O2SAT 99
[2024-11-24 20:40] LABS: Hematocrit 26.7 % (41.0-53.0)
[2024-11-24 23:58] VITALS: BP 113/64; PULSE 79; RESP 12; TEMP 36.5; O2SAT 99
[2024-11-25] VITALS (15 sets, daily range): BP systolic 109–152; BP diastolic 64–87; PULSE 60–103; RESP 13–20; TEMP 36.3–36.9; O2SAT 96–100; BMI 21.1
[2024-11-25 01:06] LABS: Hematocrit 26.7 % (41.0-53.0); Hemoglobin 9.1 g/dL (13.5-16.0)
[2024-11-25 05:33] LABS: Basophils % (Auto) 0 % (0-2.5); Eosinophils # (Auto) 0.1 Thou/mm3 (0.0-0.5); Eosinophils % (Auto) 3 % (0-10); Hemoglobin 8.9 g/dL (13.5-16.0); Immature Granulocytes % (Auto) 0 % (0-0); Lymphocytes # (Auto) 1.1 Thou/mm3 (1.0-4.8); Lymphocytes % (Auto) 46 % (10-50); Mean Corpuscular HGB Conc 34.2 g/dl (31.0-37.0); Mean Corpuscular Hemoglobin 30.1 pg (25.0-35.0); Mean Corpuscular Volume 88 fL (80-100); Monocytes # (Auto) 0.3 Thou/mm3 (0.0-0.8); Monocytes % (Auto) 11 % (0-12); Neutrophils % (Auto) 40 % (37-80); Nucleated Red Blood Cell % 0 /100 WBC (0); RDW Standard Deviation 55.6 fL (35.1-43.9); Red Blood Count 2.96 Miln/mm3 (4.50-5.90)
[2024-11-25 05:55] LABS: INR 1.5 (0.9-1.3); Prothrombin Time 15.5 Seconds (9.0-12.2)
[2024-11-25 06:15] LABS: Alanine Aminotransferase 27 U/L (10-49); Albumin/Globulin Ratio 1.1 (1.2-2.2); Alkaline Phosphatase 60 U/L (46-116); Anion Gap 9 (7-16); Aspartate Amino Transferase 42 U/L (0-34); BUN/Creatinine Ratio 25 Ratio (12-20); Bilirubin,Total 2.6 mg/dL (0.3-1.2); Blood Urea Nitrogen 15 mg/dL (9-23); Calcium (Corrected) 8.8 mg/dL (8.5-10.1); Carbon Dioxide 26.4 mMol/L (20.0-31.0); Chloride 109 mMol/L (98-107); Creatinine (Component) 0.6 mg/dL (0.6-1.3); Estimated Creatinine Clearance 127.6 mL/min (>60); Globulin 2.8 gm/dL (2.3-3.5); Glucose 114 mg/dL (74-106); Magnesium 1.9 mg/dL (1.6-2.6); Osmolality,Calculated 288 (275-295); Phosphorous 3.3 mg/dL (2.4-5.1); Sodium 144 mMol/L (136-145); Total Protein 5.8 gm/dL (5.7-8.2); eGFR > 60 See Note
[2024-11-25 06:21] LABS: Platelet Count 40 Thou/mm3 (140-440); White Blood Count 2.4 Thou/mm3 (3.8-10.6)
[2024-11-25] MEDS: OCTREOTIDE ACET INJ 1,000 MCG in SODIUM CHLORIDE 0.9% 100 ML 5.1 MCG IV (07:48)
[2024-11-25] MEDS: PANTOPRAZOLE/NS 80MG IV PREMIX 80 MG/100 ML BAG 10 MG IV ×2 (07:49→21:16)
[2024-11-25] MEDS: Magnesium Sulfate 4 GM Ivpb 4 GM/50 ML BAG IV (08:39)
--- NOTE | 2024-11-25 09:00 | CHAP ---
Visited with patient, mostly listening and giving comfort and encouragement and prayer.
[2024-11-25 09:10] LABS: Slide Review Platelets confirmed
--- NOTE | 2024-11-25 10:58 | PC.SS ---
Patient is alert/oriented. Patient was able to verify demographics. Patient was admitted for hematemesis. Patient resides with his brothers and son. Patient states he's independent with ADL's. Patient does not posess any DME. He states he's not working right now and on Workers Comp. Patient PCP: Dr. Mahoney and last appt was last month. Patient pharmacy: [facility] Patient is npo for an EGD today. Patient already completed MRI. Patient discharge plan is to return home. Alt medical decision maker: DaughterPrincess, d/c plan: home
--- NOTE | 2024-11-25 12:54 | SUR.PHASEI ---
1250 Report given to Suze RN, patient meets discharge criteria from recovery, on oxygen 2L via nasal cannula, resting comfortably able to arouse with verbal prompting, breathing unlabored, vital signs stable, denies pain and nausea 1254 Patient transported via gurney to room 278 without incident
--- NOTE | 2024-11-25 13:04 | ESPR_ITS ---
<Statement entered by Bigg Choudhury MD - 11/25/24 18:00> Patient examined and case discussed with the team including attending physician. Note reviewed, I agree with the care plan as documented. Mr Guerrero is a 54-year-old male admitted for acute blood loss anemia and esophageal variceal bleed in the setting of decompensated liver disease, multiple hepatic lesions, likely metastatic and history of hepatitis C infection, chronic. Dr. Henry consulted, appreciate recommendations. History of esophageal varices, had bleeding in November 2022, follows gastroenterology outpatient. MRCP shows cirrhosis, multiple hepatic lesions, cholelithiasis, massive splenomegaly, diffuse hepatic adenopathy. Child Ng score: 7 points, Child class B, MELD score 14 points, 6% estimated 3-month mortality. Tumor markers were negative on last admission. MRI abdomen with contrast showed Multiple relatively nonenhancing liver lesions, differential would include multifocal primary hepatocellular carcinoma, hepatic metastases EGD showed Grade 2 varices in the lower third of the esophagus which were medium size and banded successfully; there was erythematous mucosa in the stomach with recent stigmata of bleeding. Plan: Continue IV Protonix and IV octreotide drip, resumed carvedilol dose (3.125 mg p.o. twice daily with meals), SSI and diabetic education for Last A1c of 9.0 Please refer to the note above for further details. - Bigg Choduhury MD, PGY 2 Disclaimer: The document may contain phonetic/typographic errors due to voice recognition software. These errors are purely due to imperfections in the software program. Documentation for date of: 11/25/24 Subjective Subjective Interval history: 11/25/2024: No acute overnight events reported. Patient's hemoglobin was trended overnight and it was stable. Patient seen and assessed in hospital bed reporting no concerning symptoms and denies having any abdominal pain, chest pain, shortness of breath or palpitations. EGD with Dr. Henry showed: grade 2 varices in the lower third of the esophagus which were medium size and banded successfully; there was erythematous mucosa in the stomach with recent stigmata of bleeding. Patient completed MRI abdomen with contrast for liver lesions which are still present and require biopsy. Radiologist made aware and is requesting platelets to be at least 100 in order to do a biopsy. Will reassess diagnostic parameters and discussed patient's case with GI. Patient could benefit from colonoscopy for possible metastatic lesions noted in the liver imaging. Exam Vital Signs Temp Pulse Resp BP Pulse Ox O2 Del Method O2 Flow Rate 98.1 F 92 15 129/78 96 Room Air 4 11/25/24 12:02 11/25/24 12:02 11/25/24 12:02 11/25/24 12:02 11/25/24 12:02 11/25/24 08:00 11/25/24 12:02 Narrative Exam Physical Exam: GENERAL: Awake, answering questions appropriately, slightly jaundiced, appears stated age HEENT: NC/AT. Moist mucosa. PERRLA/EOMI. CARDIO: Heart RRR, no obvious murmurs, no JVD. PULM: No coughing or visible SOB. Lungs CTA B/L. GI: Abdomen soft, NT/ND, liver was not palpated below costophrenic margins, no guarding or rebound tenderness, borborygmi apparent SKIN/MSK/EXT: No wounds/discoloration/rashes/edema/amputations. +Pedal pulses present B/L. NEURO: Oriented x3, Moves extremities x4, no focal neurologic deficits noted Objective Labs 11/26/24 04:41 11/26/24 04:41 Labs: Laboratory Results - last 24 hr 11/24/24 11/24/24 11/24/24 11:46 16:07 20:17 WBC RBC Hgb 9.3 L 9.0 L Hct 27.1 L 26.7 L MCV MCH MCHC RDW Std Deviation Plt Count Neut % (Auto) Lymph % (Auto) [place] % (Auto) Eos % (Auto) Baso % (Auto) Neut # (Auto) Lymph # (Auto) [place] # (Auto) Eos # (Auto) Baso # (Auto) Immature Gran # (Auto) Absolute Nucleated RBC Immature Gran % Nucleated RBC % PT INR Sodium Potassium Chloride Carbon Dioxide Anion Gap BUN Creatinine Estim Creat Clear Calc eGFR BUN/Creatinine Ratio Glucose Calculated Osmolality Calcium Corrected Calcium Phosphorus Magnesium Total Bilirubin AST ALT Alkaline Phosphatase Total Protein Albumin Globulin Albumin/Globulin Ratio Misc Test Result Blood Type O Positive Antibody Screen NEGATIVE Blood Bank Wristband ID Yes 11/25/24 11/25/24 00:07 04:47 WBC 2.4 L D RBC 2.96 L Hgb 9.1 L 8.9 L Hct 26.7 L 26.0 L MCV 88 MCH 30.1 MCHC 34.2 RDW Std Deviation 55.6 H Plt Count 40 L D Neut % (Auto) 40 Lymph % (Auto) 46 [place] % (Auto) 11 Eos % (Auto) 3 Baso % (Auto) 0 Neut # (Auto) 1.0 L Lymph # (Auto) 1.1 [place] # (Auto) 0.3 Eos # (Auto) 0.1 Baso # (Auto) 0.0 Immature Gran # (Auto) 0.00 Absolute Nucleated RBC 0.00 Immature Gran % 0 Nucleated RBC % 0 PT 15.5 H INR 1.5 H Sodium 144 Potassium 4.0 Chloride 109 H Carbon Dioxide 26.4 Anion Gap 9 BUN 15 Creatinine 0.6 Estim Creat Clear Calc 127.6 eGFR > 60 BUN/Creatinine Ratio 25 H Glucose 114 H D Calculated Osmolality 288 Calcium 8.0 L Corrected Calcium 8.8 Phosphorus 3.3 Magnesium 1.9 Total Bilirubin 2.6 H AST 42 H ALT 27 Alkaline Phosphatase 60 D Total Protein 5.8 Albumin 3.0 L D Globulin 2.8 Albumin/Globulin Ratio 1.1 L Misc Test Result Platelets confirmed Blood Type Antibody Screen Blood Bank Wristband ID Quality Measures Quality Measures VTE prophylaxis Assessment & Plan Assessment Current Active Medications: Generic Name Dose Route Start Last Admin Trade Name Freq PRN Reason Stop Dose Admin Dextrose 25 ml 11/24/24 11:48 Dextrose 50%-Water Inj 50 Ml Syringe IV 12/24/24 11:47 Q15MIN PRN BG 50-70 responsive npo pt Dextrose 50 ml 11/24/24 11:48 Dextrose 50%-Water Inj 50 Ml Syringe IV 12/24/24 11:47 Q15MIN PRN BG <50 OR BG <70 & pt unresponsive Diphenhydramine HCl 25 mg 11/25/24 11:26 Diphenhydramine Inj 50 Mg/Ml Vial IVP 11/25/24 13:27 [id number] PRN MODERATE SEDATION Fentanyl Citrate 50 mcg 11/25/24 11:26 Fentanyl Cit Inj 50 Mcg/Ml Amp 2ml IVP 11/25/24 13:27 Q2M PRN MODERATE SEDATION Glucagon 1 mg 11/24/24 11:48 Glucagon Inj 1 Mg Vial IM Q15MIN PRN BG <70, and no IV access Octreotide Acetate 1,000 mcg/ 102 mls @ 5.1 mls/hr 11/25/24 07:37 11/25/24 07:48 Sodium Chloride IV 11/26/24 07:36 50 mcg/hr .Q20H ADARSH 5.1 mls/hr Administration Protocol 50 MCG/HR Pantoprazole Sodium 80 mg in 100 mls @ 10 mls/hr 11/24/24 21:36 11/25/24 07:49 Protonix/Ns 80mg Iv Premix IV 11/26/24 13:35 10 mls/hr Q10H ADARSH Administration Sodium Chloride 500 mls @ 80 mls/hr 11/25/24 11:42 Ns IV 11/25/24 17:56 .Q6H15M ONE Insulin Human Lispro 0 unit 11/24/24 12:00 11/25/24 05:55 Insulin Lispro (Admelog) 1 Unit/0.01 Ml Unit SC 12/24/24 11:59 Not Given Q6HR ADARSH Protocol Midazolam HCl 2 mg 11/25/24 11:26 Midazolam Inj 1 Mg/Ml Vial 2 Ml IVP 11/25/24 13:27 Q2M PRN Moderate Sedation Mirtazapine 15 mg 11/25/24 21:00 Mirtazapine 15 Mg Tablet PO 12/25/24 20:59 HS ADARSH Ondansetron HCl 4 mg 11/24/24 11:45 11/24/24 12:16 Ondansetron Inj 2 Mg/Ml Inj 2 Ml IVP 12/24/24 11:44 4 mg Q6H PRN Administration NAUSEA OR VOMITING Protocol Plan 54-year-old male with past medical history of esophageal varices (November 2022), Cirrhosis, psoriasis, hepatitis C infection, diabetes, hypertension and claustrophobia who presented to [facility] emergency department on 10/31/2024 with a chief complaint of abdominal pain, patient complains of severe abdominal pain describes it as a dull ache with moderate severity. Patient admitted to hospital for further workup. #Acute blood loss anemia #Esophageal variceal bleed As per HPI above, patient has been having melena and hematochezia for the past couple days or so As stated below, patient has history of cirrhosis secondary to hepatitis C infection with esophageal varices Differential diagnosis for hematemesis at this time remains likely secondary to esophageal varices versus Lora-Gomez tear, Boerhaave syndrome less likely Patient states that he takes his Coreg regularly for esophageal varices prophylaxis Was supposed to follow-up with Dr. Henry this afternoon, gastroenterology but came to the ED instead secondary to the hematemesis Hgb of 11.2 with MCV of 86 In the ED, patient was started on Protonix and octreotide drip EGD showed Grade 2 varices in the lower third of the esophagus which were medium size and banded successfully; there was erythematous mucosa in the stomach with recent stigmata of bleeding Plan: GI, Dr. Henry consulted, appreciate recommendations Continue IV Protonix and IV octreotide drip, pending GI recommendations Clear liquid, advancing Monitor with morning labs Transfuse if hemoglobin less than 7 #Decompensated liver disease #Thrombocytopenia, hyperbilirubinemia, hypoalbuminemia, hypercoagulable #Multiple hepatic lesions, likely metastatic process #History of hepatitis C infection, chronic Patient has history of cirrhosis secondary to hepatitis C History of esophageal varices, had bleeding in November 2022, follows gastroenterology outpatient. MRCP shows cirrhosis, multiple hepatic lesions, cholelithiasis, massive splenomegaly, diffuse hepatic adenopathy Child Ng score: 7 points, Child class B, MELD score 14 points, 6% estimated 3-month mortality Tumor markers were negative on last admission Has been taking supplements; Liver Support and Iberogast MRI abdomen with contrast showed Multiple relatively nonenhancing liver lesions, differential would include multifocal primary hepatocellular carcinoma, hepatic metastases Although the patient's lesions are amenable to biopsy; patient's platelets are below 100 and radiology is not comfortable with proceeding with biopsy Plan: Will discuss next steps with GI specialist Will resume home carvedilol dose (3.125 mg p.o. twice daily with meals) #Diabetes mellitus, type II [id number] Patient has history of diabetes on Ozempic, was switched to Mounjaro but has not been taking it Patient states that home glucose readings have been between 120 and 190 with morning glucose reads between 90 and 110 Patient only takes metformin 500 mg p.o. twice daily Last A1c of 9.0 Plan: SSI Diabetic education #Hypertension Patient on Coreg for hypertension/esophageal varices prophylaxis Plan: Will consider resuming when appropriate #Psoriasis Patient on risankizumab for psoriasis, currently no complaints Plan: Will hold off for now, resume when discharged Hospital Management: DVT prophylaxis: SCDs, no chemical prophylaxis started because of low platelets and history of esophageal varices GI prophylaxis: Protonix and octreotide drip Diet: Clear liquid, advancing Lines: Peripheral IV Bowel: Senna Code status: Full code Patient seen and assessed with attending Dr. Nathan Schilling, PGY-1 Attending Provider Attestation/Addendum Catherine Camacho DO, attest that I was physically present for the rocha portions of the service and evaluated the patient with the resident and I reviewed and discussed the case with the resident and agree with the resident's findings and plans of care as documented above Patient seen and eval this a.m. Patient is pending endoscopy today. MRI of the abdomen shows multiple relatively nonenhancing liver lesions concerning for HCC versus hepatic metastasis. Patient's platelets are 40,000, not ideal for biopsy. Platelet count needs to be at least 100,000. Case was discussed with GI who will further discussed with IR plan of care as well for possible biopsy in the future. Will follow-up with EGD results. Continue with octreotide and Protonix drip.
[2024-11-25] MEDS: MIRTAZAPINE 15 MG TABLET PO (20:31)
[2024-11-26] VITALS: BP 122/72; PULSE 76; PULSE 78; RESP 16; TEMP 36.9; O2SAT 98
[2024-11-26 04:00] VITALS: BP 116/75; PULSE 62; PULSE 66; RESP 18; TEMP 36.5; O2SAT 98
[2024-11-26 06:06] LABS: Alanine Aminotransferase 30 U/L (10-49); Albumin, Serum 3.1 gm/dL (3.5-5.0); Albumin/Globulin Ratio 1.1 (1.2-2.2); Alkaline Phosphatase 60 U/L (46-116); Anion Gap 10 (7-16); Aspartate Amino Transferase 48 U/L (0-34); BUN/Creatinine Ratio 17 Ratio (12-20); Basophils % (Auto) 1 % (0-2.5); Bilirubin,Total 2.7 mg/dL (0.3-1.2); Blood Urea Nitrogen 10 mg/dL (9-23); Calcium 7.9 mg/dL (8.3-10.6); Calcium (Corrected) 8.6 mg/dL (8.5-10.1); Carbon Dioxide 24.9 mMol/L (20.0-31.0); Chloride 109 mMol/L (98-107); Creatinine (Component) 0.6 mg/dL (0.6-1.3); Eosinophils # (Auto) 0.1 Thou/mm3 (0.0-0.5); Eosinophils % (Auto) 3 % (0-10); Estimated Creatinine Clearance 121.4 mL/min (>60); Globulin 2.9 gm/dL (2.3-3.5); Glucose 116 mg/dL (74-106); Hematocrit 26.2 % (41.0-53.0); Immature Granulocytes % (Auto) 0 % (0-0); Immature Granulocytes Auto 0.01 Thou/mm3 (0.00-0.00); Lymphocytes # (Auto) 0.9 Thou/mm3 (1.0-4.8); Lymphocytes % (Auto) 36 % (10-50); Mean Corpuscular HGB Conc 33.2 g/dl (31.0-37.0); Mean Corpuscular Hemoglobin 29.6 pg (25.0-35.0); Mean Corpuscular Volume 89 fL (80-100); Monocytes # (Auto) 0.3 Thou/mm3 (0.0-0.8); Monocytes % (Auto) 11 % (0-12); Neutrophils # (Auto) 1.1 Thou/mm3 (1.8-7.7); Neutrophils % (Auto) 48 % (37-80); Nucleated Red Blood Cell % 0 /100 WBC (0); Osmolality,Calculated 286 (275-295); Potassium 3.6 mMol/L (3.4-5.1); RDW Standard Deviation 56.4 fL (35.1-43.9); Red Blood Count 2.94 Miln/mm3 (4.50-5.90); Sodium 144 mMol/L (136-145); eGFR > 60 See Note
[2024-11-26 06:08] LABS: Hemoglobin 8.7 g/dL (13.5-16.0); Platelet Count 48 Thou/mm3 (140-440); White Blood Count 2.3 Thou/mm3 (3.8-10.6)
[2024-11-26 06:09] LABS: Slide Review Platelets confirmed
[2024-11-26] MEDS: PANTOPRAZOLE/NS 80MG IV PREMIX 80 MG/100 ML BAG 10 MG IV (06:17)
[2024-11-26] MEDS: OCTREOTIDE ACET INJ 1,000 MCG in SODIUM CHLORIDE 0.9% 100 ML 5.1 MCG IV (06:18)
[2024-11-26 08:00] VITALS: BP 127/76; PULSE 73; RESP 12; TEMP 36.1; O2SAT 98
[2024-11-26] MEDS: FERROUS SULF 325 MG TABLET PO (08:39)
[2024-11-26 08:52] VITALS: BMI 20.1
[2024-11-26] MEDS: INSULIN LISPRO (AdmeLOG) 1 UNIT/0.01 ML UNIT SC ×2 (11:39→17:27)
[2024-11-26 12:00] VITALS: BP 126/73; PULSE 65; RESP 14; TEMP 36.7; O2SAT 98
--- NOTE | 2024-11-26 13:10 | ESPR_ITS ---
<Statement entered by Bigg Choudhury MD - 11/26/24 15:31> Patient examined and case discussed with the team including attending physician. Note reviewed, I agree with the care plan as documented. Mr Santillan is a 54 year old male admitted for acute GIB in the setting of esophageal varices diagnosed in November 2022. He also has decompensated liver Cirrhosis due to chronic hepatitis C infection. EGD showed Grade 2 varices in the lower third of the esophagus which were medium size and banded successfully; there was erythematous mucosa in the stomach with recent stigmata of bleeding. He was started on Protonix and IV octreotide drip, with PUD, GERD diet. MRCP shows cirrhosis, multiple hepatic lesions, cholelithiasis, massive splenomegaly, diffuse hepatic adenopathy. Child Ng score: 7 points, Child classB and MELD score 14 points, 6% estimated 3-month mortality. Tumor markers were negative on last admission. MRI abdomen with contrast showed Multiple relatively nonenhancing liver lesions, differential would include multifocal primary hepatocellular carcinoma, hepatic metastases. Oncology requested biopsy on last admission, but it was not performed. Patient's lesions are amenable to biopsy, however given platelets are below 100, ordered 1 unit platelet and FFP. Patient is medically cleared for DC. Plan: IR liver biopsy scheduled for 11/27 tomorrow morning. Will keep patient NPO after midnight. DC once tolerates procedure. Please refer to the note below for further details. - Bigg Choudhury MD, PGY 2 Disclaimer: The document may contain phonetic/typographic errors due to voice recognition software. These errors are purely due to imperfections in the software program. Documentation for date of: 11/26/24 Subjective Subjective Interval history: 11/26/2024: No acute overnight events to report. Patient seen and examined in hospital bed at current baseline without any concerning symptoms at this time. GI specialist spoke with radiologist regarding liver biopsy and agreement has been made to potentially go forward with biopsy if the patient is able to receive 1 unit of FFP and platelet during the procedure. Pending recommendations from GI specialist regarding this agreement. Patient will remain in the hospital until liver biopsy is completed. Exam Vital Signs Temp Pulse Resp BP Pulse Ox O2 Del Method O2 Flow Rate 98.0 F 65 14 126/73 98 Room Air 2 11/26/24 12:00 11/26/24 12:00 11/26/24 12:00 11/26/24 12:00 11/26/24 12:00 11/26/24 12:00 11/25/24 16:00 Narrative Exam Physical Exam: GENERAL: Awake, answering questions appropriately, slightly jaundiced, appears stated age HEENT: NC/AT. Moist mucosa. PERRLA/EOMI. CARDIO: Heart RRR, no obvious murmurs, no JVD. PULM: No coughing or visible SOB. Lungs CTA B/L. GI: Abdomen soft, NT/ND, liver was not palpated below costophrenic margins, no guarding or rebound tenderness, borborygmi apparent SKIN/MSK/EXT: No wounds/discoloration/rashes/edema/amputations. +Pedal pulses present B/L. NEURO: Oriented x3, Moves extremities x4, no focal neurologic deficits noted Objective Labs 11/26/24 04:41 11/26/24 04:41 Labs: Laboratory Results - last 24 hr 11/26/24 04:41 WBC 2.3 L RBC 2.94 L Hgb 8.7 L Hct 26.2 L MCV 89 MCH 29.6 MCHC 33.2 RDW Std Deviation 56.4 H Plt Count 48 L Neut % (Auto) 48 Lymph % (Auto) 36 [place] % (Auto) 11 Eos % (Auto) 3 Baso % (Auto) 1 Neut # (Auto) 1.1 L Lymph # (Auto) 0.9 L [place] # (Auto) 0.3 Eos # (Auto) 0.1 Baso # (Auto) 0.0 Immature Gran # (Auto) 0.01 H Absolute Nucleated RBC 0.00 Immature Gran % 0 Nucleated RBC % 0 Sodium 144 Potassium 3.6 Chloride 109 H Carbon Dioxide 24.9 Anion Gap 10 BUN 10 Creatinine 0.6 Estim Creat Clear Calc 121.4 eGFR > 60 BUN/Creatinine Ratio 17 Glucose 116 H Calculated Osmolality 286 Calcium 7.9 L Corrected Calcium 8.6 Total Bilirubin 2.7 H AST 48 H ALT 30 Alkaline Phosphatase 60 Total Protein 6.0 Albumin 3.1 L Globulin 2.9 Albumin/Globulin Ratio 1.1 L Misc Test Result Platelets confirmed Quality Measures Quality Measures VTE prophylaxis Assessment & Plan Assessment Current Active Medications: Generic Name Dose Route Start Last Admin Trade Name Freq PRN Reason Stop Dose Admin Dextrose 25 ml 11/24/24 11:48 Dextrose 50%-Water Inj 50 Ml Syringe IV 12/24/24 11:47 Q15MIN PRN BG 50-70 responsive npo pt Dextrose 50 ml 11/24/24 11:48 Dextrose 50%-Water Inj 50 Ml Syringe IV 12/24/24 11:47 Q15MIN PRN BG <50 OR BG <70 & pt unresponsive Ferrous Sulfate 325 mg 11/26/24 08:15 11/26/24 08:39 Ferrous Sulf 325 Mg Tablet PO 12/26/24 08:14 325 mg QOD ADARSH Administration Glucagon 1 mg 11/24/24 11:48 Glucagon Inj 1 Mg Vial IM Q15MIN PRN BG <70, and no IV access Pantoprazole Sodium 80 mg in 100 mls @ 10 mls/hr 11/24/24 21:36 11/26/24 06:17 Protonix/Ns 80mg Iv Premix IV 11/26/24 13:35 10 mls/hr Q10H ADARSH Administration Insulin Human Lispro 0 unit 11/24/24 12:00 11/26/24 11:39 Insulin Lispro (Admelog) 1 Unit/0.01 Ml Unit SC 12/24/24 11:59 1 unit Q6HR ADARSH Administration Protocol Mirtazapine 15 mg 11/25/24 21:00 11/25/24 20:31 Mirtazapine 15 Mg Tablet PO 12/25/24 20:59 15 mg HS ADARSH Administration Ondansetron HCl 4 mg 11/24/24 11:45 11/24/24 12:16 Ondansetron Inj 2 Mg/Ml Inj 2 Ml IVP 12/24/24 11:44 4 mg Q6H PRN Administration NAUSEA OR VOMITING Protocol Plan 54-year-old male with past medical history of esophageal varices (November 2022), Cirrhosis, psoriasis, hepatitis C infection, diabetes, hypertension and claustrophobia who presented to [facility] emergency department on 10/31/2024 with a chief complaint of abdominal pain, patient complains of severe abdominal pain describes it as a dull ache with moderate severity. Patient admitted to hospital for further workup. #Acute blood loss anemia #Esophageal variceal bleed As per HPI above, patient has been having melena and hematochezia for the past couple days or so As stated below, patient has history of cirrhosis secondary to hepatitis C infection with esophageal varices Differential diagnosis for hematemesis at this time remains likely secondary to esophageal varices versus Lora-Gomez tear, Boerhaave syndrome less likely Patient states that he takes his Coreg regularly for esophageal varices prophylaxis Was supposed to follow-up with Dr. Henry this afternoon, gastroenterology but came to the ED instead secondary to the hematemesis Hgb of 11.2 with MCV of 86 In the ED, patient was started on Protonix and octreotide drip EGD showed Grade 2 varices in the lower third of the esophagus which were medium size and banded successfully; there was erythematous mucosa in the stomach with recent stigmata of bleeding Plan: GI, Dr. Henry consulted, appreciate recommendations Continue IV Protonix and IV octreotide drip, pending GI recommendations PUD, soft diet Monitor with morning labs Transfuse if hemoglobin less than 7 #Decompensated liver disease #Thrombocytopenia, hyperbilirubinemia, hypoalbuminemia, hypercoagulable #Multiple hepatic lesions, likely metastatic process #History of hepatitis C infection, chronic Patient has history of cirrhosis secondary to hepatitis C History of esophageal varices, had bleeding in November 2022, follows gastroenterology outpatient. MRCP shows cirrhosis, multiple hepatic lesions, cholelithiasis, massive splenomegaly, diffuse hepatic adenopathy Child Ng score: 7 points, Child class B, MELD score 14 points, 6% estimated 3-month mortality Tumor markers were negative on last admission Has been taking supplements; Liver Support and Iberogast MRI abdomen with contrast showed Multiple relatively nonenhancing liver lesions, differential would include multifocal primary hepatocellular carcinoma, hepatic metastases Although the patient's lesions are amenable to biopsy; patient's platelets are below 100 and radiology is not comfortable with proceeding with biopsy Plan: Ordered 1 unit platelet and FFP, patient tentatively scheduled for biopsy Continue home carvedilol dose (3.125 mg p.o. twice daily with meals) #Diabetes mellitus, type II [id number] Patient has history of diabetes on Ozempic, was switched to Mounjaro but has not been taking it Patient states that home glucose readings have been between 120 and 190 with morning glucose reads between 90 and 110 Patient only takes metformin 500 mg p.o. twice daily Last A1c of 9.0 Plan: SSI Diabetic education Will increase patient's metformin to 750 mg p.o twice daily #Hypertension Patient on Coreg for hypertension/esophageal varices prophylaxis Plan: Will consider resuming when appropriate #Psoriasis Patient on risankizumab for psoriasis, currently no complaints Plan: Will hold off for now, resume when discharged Hospital Management: DVT prophylaxis: SCDs, no chemical prophylaxis started because of low platelets and history of esophageal varices GI prophylaxis: Protonix and octreotide drip Diet: Clear liquid, advancing Lines: Peripheral IV Bowel: Senna Code status: Full code Patient seen and assessed with attending Dr. Nathan Schilling, PGY-1 Attending Provider Attestation/Addendum Catherine Camacho DO, attest that I was physically present for the rocha portions of the service and evaluated the patient with the resident and I reviewed and discussed the case with the resident and agree with the resident's findings and plans of care as documented above Patient seen and eval this a.m. He states that he is feeling well. No further episodes of nausea or vomiting. Patient has been tolerating p.o. intake. Radiology is willing to do liver biopsy with 1 unit of FFP and platelets running prior to procedure. Will place patient n.p.o. after midnight and anticipate for biopsy in a.m. If patient undergoes biopsy, anticipate discharge within the next 48 hours.
[2024-11-26 16:00] VITALS: BP 138/79; PULSE 73; RESP 16; TEMP 36.8; O2SAT 97
--- NOTE | 2024-11-26 19:13 | PC.NURSE ---
Sebas BELTRE given report and made aware of plan for liver biopsy with FFP and platelets transfusion. ALEXSANDER Mullen notified that there is a miscellaneous nursing order with instructions on when and how to transfuse FFP and platelets and that plasma will take approximately 20-30 minutes to thaw so plan accordingly with blood blank, Doctor Henry, and other appropriate members of the interdisciplinary team.
[2024-11-26 20:00] VITALS: BP 105/68; PULSE 77; PULSE 79; RESP 17; TEMP 36.3; O2SAT 99
--- NOTE | 2024-11-26 20:18 | PD.IMPROG ---
Documentation for date of: 11/26/24 Subjective Subjective Interval history: Patient evaluated hemoglobin hematocrit 8.7 and 26.2 Exam Vital Signs Temp Pulse Resp BP Pulse Ox O2 Del Method O2 Flow Rate 97.3 F 77 17 105/68 99 Room Air 2 11/26/24 20:00 11/26/24 20:00 11/26/24 20:00 11/26/24 20:00 11/26/24 20:00 11/26/24 20:00 11/25/24 16:00 Objective Labs 11/26/24 04:41 11/26/24 04:41 Labs: Laboratory Results - last 24 hr 11/24/24 11/26/24 11:46 04:41 WBC 2.3 L RBC 2.94 L Hgb 8.7 L Hct 26.2 L MCV 89 MCH 29.6 MCHC 33.2 RDW Std Deviation 56.4 H Plt Count 48 L Neut % (Auto) 48 Lymph % (Auto) 36 [place] % (Auto) 11 Eos % (Auto) 3 Baso % (Auto) 1 Neut # (Auto) 1.1 L Lymph # (Auto) 0.9 L [place] # (Auto) 0.3 Eos # (Auto) 0.1 Baso # (Auto) 0.0 Immature Gran # (Auto) 0.01 H Absolute Nucleated RBC 0.00 Immature Gran % 0 Nucleated RBC % 0 Sodium 144 Potassium 3.6 Chloride 109 H Carbon Dioxide 24.9 Anion Gap 10 BUN 10 Creatinine 0.6 Estim Creat Clear Calc 121.4 eGFR > 60 BUN/Creatinine Ratio 17 Glucose 116 H Calculated Osmolality 286 Calcium 7.9 L Corrected Calcium 8.6 Total Bilirubin 2.7 H AST 48 H ALT 30 Alkaline Phosphatase 60 Total Protein 6.0 Albumin 3.1 L Globulin 2.9 Albumin/Globulin Ratio 1.1 L Misc Test Result Platelets confirmed Blood Bank Comment FFP Ready Impressions Impression: Anemia blood loss band ligation of the esophageal varices liver lesions ultrasound-guided biopsy by IR after platelet and FFP transfusion in the morning at 7 AM biopsy will be done after that Spoke with the radiologist Assessment & Plan A&P Narrative # Hematemesis # Melena in the setting of chronic liver disease secondary to hepatitis C Plan Octreotide infusion at 50 mcg/h Continue IV Protonix N.p.o. except for ice chips Consent obtained for fiberoptic esophagogastroduodenoscopy with possible therapeutic intervention possible biopsy under intravenous moderate sedation scheduled for tomorrow morning Serial CBC Other medical problems include Diabetes mellitus type 2 Essential hypertension Thank you very much for the opportunity to participate in the care of this patient Time Spent With Patient Time: Total time spent is greater than 50% in coordination of care (as documented) at patient's floor/unit and/or counseling patient:
[2024-11-27] VITALS (20 sets, daily range): BP systolic 98–158; BP diastolic 52–76; PULSE 61–98; RESP 13–18; TEMP 36.2–36.9; O2SAT 96–100; BMI 20.5
--- NOTE | 2024-11-27 04:43 | PC.NURSE ---
Spoke to blood bank, to confirm if platelets and FFP were in stock. This instructional writer was told that the FFPs were in stock but there were no platelets available and that they would need to be ordered.
[2024-11-27 05:08] LABS: Basophils % (Auto) 1 % (0-2.5); Eosinophils # (Auto) 0.1 Thou/mm3 (0.0-0.5); Eosinophils % (Auto) 3 % (0-10); Hematocrit 25.6 % (41.0-53.0); Immature Granulocytes % (Auto) 0 % (0-0); Immature Granulocytes Auto 0.01 Thou/mm3 (0.00-0.00); Lymphocytes # (Auto) 0.9 Thou/mm3 (1.0-4.8); Lymphocytes % (Auto) 35 % (10-50); Mean Corpuscular HGB Conc 34.4 g/dl (31.0-37.0); Mean Corpuscular Hemoglobin 29.2 pg (25.0-35.0); Mean Corpuscular Volume 85 fL (80-100); Monocytes # (Auto) 0.3 Thou/mm3 (0.0-0.8); Monocytes % (Auto) 11 % (0-12); Neutrophils # (Auto) 1.3 Thou/mm3 (1.8-7.7); Neutrophils % (Auto) 51 % (37-80); Nucleated Red Blood Cell % 0 /100 WBC (0); RDW Standard Deviation 53.1 fL (35.1-43.9); Red Blood Count 3.01 Miln/mm3 (4.50-5.90)
[2024-11-27 05:14] LABS: Hemoglobin 8.8 g/dL (13.5-16.0); Platelet Count 39 Thou/mm3 (140-440)
[2024-11-27 05:15] LABS: White Blood Count 2.6 Thou/mm3 (3.8-10.6)
[2024-11-27 05:27] LABS: INR 1.4 (0.9-1.3); Prothrombin Time 14.8 Seconds (9.0-12.2)
[2024-11-27 05:59] LABS: Slide Review Platelets confirmed
--- NOTE | 2024-11-27 06:08 | PC.NURSE ---
notified Dr. dimas about only having FFP per blood bank and that there were no platelets available at this time. order to transfuse 1x unit of FFPs given POC updated.
[2024-11-27 06:18] LABS: Alanine Aminotransferase 26 U/L (10-49); Albumin, Serum 3.1 gm/dL (3.5-5.0); Albumin/Globulin Ratio 1.1 (1.2-2.2); Alkaline Phosphatase 60 U/L (46-116); Anion Gap 10 (7-16); Aspartate Amino Transferase 42 U/L (0-34); BUN/Creatinine Ratio 15 Ratio (12-20); Blood Urea Nitrogen 9 mg/dL (9-23); Calcium 7.9 mg/dL (8.3-10.6); Calcium (Corrected) 8.6 mg/dL (8.5-10.1); Carbon Dioxide 25.7 mMol/L (20.0-31.0); Chloride 108 mMol/L (98-107); Creatinine (Component) 0.6 mg/dL (0.6-1.3); Globulin 2.9 gm/dL (2.3-3.5); Glucose 119 mg/dL (74-106); Osmolality,Calculated 286 (275-295); Potassium 3.6 mMol/L (3.4-5.1); Sodium 144 mMol/L (136-145); eGFR > 60 See Note
--- NOTE | 2024-11-27 06:36 | PC.NURSE ---
unable to scan expiration date and product. Double verified with Ki BELTRE for product type and expiration date.
--- NOTE | 2024-11-27 10:16 | PC.NURSE ---
Noticed that there was not a consent for blood in the chart, pt stated that he signed a bunch of consents, so I had him sign a new consent for blood and blood products
--- NOTE | 2024-11-27 13:44 | XR_ITS ---
Examination: CT-guided percutaneous liver biopsy CT abdomen without intravenous contrast Date and time of procedure: November 27, 2024 1442 hours INDICATIONS: Cirrhosis, multiple nonenhancing liver lesions on MR abdomen November 24, 2024 Informed consent provided. A timeout was completed verifying correct patient, procedure, site and positioning. Technique: Axial 3 mm sections were obtained for localization of the lung abnormality. Appropriate area is marked. The patient's site was prepped and draped in sterile fashion Maximal sterile barrier technique utilized, including hand hygiene Local anesthesia was obtained with 1% lidocaine. Low dose protocols were performed. One or more of the following dose reduction techniques were used; automated exposure control, adjustment of the mA and/or KV according to patient size, use of iterative reconstruction technique. Findings: The biopsy/aspiration is obtained with a 21-gauge needle 2 core biopsies have been obtained. Patient appears in stable condition during this procedure. At completion of the procedure, the patient is in satisfactory condition. Estimated blood loss 5 cc Complete pathology report to follow. Impression: Successful CT-guided percutaneous liver biopsy
[2024-11-27] MEDS: fentaNYL CIT INJ 50 mCg/ML AMP 2ML 25 MCG IVP (15:00)
--- NOTE | 2024-11-27 15:36 | ESDS_ITS ---
<Statement entered by Bigg Choudhury MD - 11/27/24 16:02> Patient was examined with the team including attending physician. Note reviewed, I agree with the discharge plan as documented. - Bigg Choudhury MD PGY2 Disclaimer: The document may contain phonetic/typographic errors due to voice recognition software. Planned Discharge Date 11/27/24 DS: Providers Provider Date of admission: 11/24/24 12:22 Primary care physician: Juice Mahoney MD Admitting Provider: Catherine Evans DO Attending Provider on Admission: Catherine Evans DO Consults: 11/24/24 11:42 Consult to Gastroenterology Stat Comment: Consulting Provider: Tra Henry Attending Provider on DC: Cecil Schilling MD Discharging Provider: Cecil Schilling MD DS: Diagnosis Problem List Completed Was Problem List Reviewed/Reconciled?: Yes Hospital Course Hospital Course Hospital course: 54-year-old male with past medical history esophageal varices, cirrhosis, psoriasis, hepatitis C infection, [id number] type II diabetes, hypertension presenting to the ED on 11/24 with an episode of hematemesis and melena. In the ED, patient presented normotensive, heart rate 88, respiratory rate 18, afebrile satting 100 on room air. Pertinent lab findings included WBC 7.2, hemoglobin 11.2 with MCV of 86, platelet 87, PT 15.3, INR 1.4, BUN 23, creatinine 0.7, total bilirubin 2.7, AST 49, ALT 31, alk phos 83 albumin 3.5, lipase 27. Urine cultures negative for any signs of infection. Patient was admitted for upper GI bleed likely secondary to esophageal varices with GI consulted for upper endoscopy. On 11/25 patient completed EGD which showed grade 2 esophageal varices which were completely eradicated by banding. Patient also completed MRI abdomen with contrast for liver lesions which are still present and require biopsy. On 11/27 after transfusing 1 unit of platelets and FFP the patient completed liver biopsy. Patient will be discharged stable with the following strict instructions. Please take ferrous sulfate 325 mg tablets every other day for iron deficiency anemia Your metformin dose has increased to 750mg by mouyh twice a day with meals Continue carvedilol 3.125 mg by mouth twice a day with meals Please follow-up with Dr. Schilling at the [address] [place], [place] [id number] to go over biopsy results in 2 weeks. If your symptoms worsen or if you develop new chest pain, shortness of breath, dizziness or loss of consciousness - please come back to the ED immediately. Hospital Diagnosis: #Acute blood loss anemia #Esophageal variceal bleed #Decompensated liver disease #Thrombocytopenia, hyperbilirubinemia, hypoalbuminemia, hypercoagulable #Multiple hepatic lesions, likely metastatic process #History of hepatitis C infection, chronic #Diabetes mellitus, type II [id number] #Hypertension #Psoriasis Cecil Schilling, PGY-1 Status at Discharge Overall status at discharge: patient is progressing back to baseline Time Spent with Patient Time attestation: Total time spent providing and/or coordinating discharge services: 29 minutes Time spent: Less than 30 minutes Exam Vital Signs Temp Pulse Resp BP Pulse Ox O2 Del Method O2 Flow Rate 97.4 F 77 16 137/76 H 100 Room Air 2 11/27/24 14:13 11/27/24 14:13 11/27/24 14:13 11/27/24 14:13 11/27/24 14:13 11/27/24 14:13 11/25/24 16:00 Narrative Exam Physical Exam: GENERAL: Awake, answering questions appropriately, slightly jaundiced, appears stated age HEENT: NC/AT. Moist mucosa. PERRLA/EOMI. CARDIO: Heart RRR, no obvious murmurs, no JVD. PULM: No coughing or visible SOB. Lungs CTA B/L. GI: Abdomen soft, NT/ND, liver was not palpated below costophrenic margins, no guarding or rebound tenderness, borborygmi apparent SKIN/MSK/EXT: No wounds/discoloration/rashes/edema/amputations. +Pedal pulses present B/L. NEURO: Oriented x3, Moves extremities x4, no focal neurologic deficits noted Discharge Plan Plan Patient Disposition: HOME (Self Care) Patient condition on transfer: Stable Care Plan Goals: Please take ferrous sulfate 325 mg tablets every other day for iron deficiency anemia Your metformin dose has increased to 750mg by mouyh twice a day with meals Continue carvedilol 3.125 mg by mouth twice a day with meals Please follow-up with Dr. Schilling at the [facility] [address] [place] [address] to go over biopsy results in 2 weeks. If your symptoms worsen or if you develop new chest pain, shortness of breath, dizziness or loss of consciousness - please come back to the ED immediately. Prescriptions/Referrals Prescriptions/Med Rec: New ferrous sulfate 325 mg (65 mg iron) Tablet,Delayed Release (Dr/Ec) 325 mg PO QOD 30 Days Qty: 15 3RF metformin 750 mg tablet 750 mg PO BIDWMEAL 30 Days Qty: 60 3RF Continued carvedilol 3.125 mg Tablet 3.125 mg PO BIDWM 30 Days Qty: 60 0RF Discontinued metformin 500 mg tablet 500 mg PO BIDWMEAL 30 Days Qty: 60 3RF Referrals: Juice Mahoney MD [Primary Care Provider] - Patient/Caregiver Discharge Instructions Print Language: Lithuanian Stand Alone Forms: Karla Award Info., Patient Portal Info Letter Discharge Order Discharge Orders: Discharge (Routine); Ordered 11/27/24 Ordered By: Cecil Schilling Quality Discharge Quality Measures VTE prophylaxis Attestestation MD Attestation I attest that I was physically present for the evaluation, physical examination, lab and imaging review of the patient with the residents. I discussed the case with the residents and agree with the findings and plans of care as documented above. Papito Tong MD
--- NOTE | 2024-11-28 14:20 | PD.IMPROG ---
Documentation for date of: 11/28/24 Subjective Subjective Interval history: Late entry for the note Advised the patient to come and see me in 1 week in the office at that time we will review the biopsy report results of the liver biopsy done yesterday Patient will also undergo colonoscopy as an outpatient Exam Vital Signs Temp Pulse Resp BP Pulse Ox O2 Del Method O2 Flow Rate 97.4 F 72 18 114/66 100 Nasal Cannula 2 11/27/24 14:13 11/27/24 16:45 11/27/24 15:11 11/27/24 16:45 11/27/24 15:11 11/27/24 15:11 11/27/24 15:11 Objective Labs 11/27/24 04:27 11/27/24 04:27 Impressions Impression: # Upper GI bleed stable # Liver lesion CT-guided biopsy done Outpatient follow-up Assessment & Plan A&P Narrative # Hematemesis # Melena in the setting of chronic liver disease secondary to hepatitis C Plan Octreotide infusion at 50 mcg/h Continue IV Protonix N.p.o. except for ice chips Consent obtained for fiberoptic esophagogastroduodenoscopy with possible therapeutic intervention possible biopsy under intravenous moderate sedation scheduled for tomorrow morning Serial CBC Other medical problems include Diabetes mellitus type 2 Essential hypertension Thank you very much for the opportunity to participate in the care of this patient Time Spent With Patient Time: Total time spent is greater than 50% in coordination of care (as documented) at patient's floor/unit and/or counseling patient:
== END 2024-11-27 18:34 | disposition home or self-care (01) | DRG 432 ==
LOC: SERX 08:24 → SERHOLD 12:24 → S2NX 13:03
PROVIDERS: Nurse Practitioner Family; Specialist; Admitting Provider Internal Medicine; Emergency Provider Emergency Medicine; PCP Family Medicine; Visit Provider Internal Medicine
PROC: (CPT 43239; principal; 2024-11-25 17:00)
DX: K74.60 Unspecified cirrhosis of liver (principal); I85.11 Secondary esophageal varices with bleeding; D62 Acute posthemorrhagic anemia; B18.2 Chronic viral hepatitis C; I10 Essential (primary) hypertension; E11.9 Type 2 diabetes mellitus without complications; B19.20 Unspecified viral hepatitis C without hepatic coma; L40.9 Psoriasis, unspecified; Z79.84 Long term (current) use of oral hypoglycemic drugs; K31.89 Other diseases of stomach and duodenum; D69.6 Thrombocytopenia, unspecified; Z79.899 Other long term (current) drug therapy; E88.09 Other disorders of plasma-protein metabolism, not elsewhere classified; K80.20 Calculus of gallbladder without cholecystitis without obstruction
CPT/HCPCS: 36415; 74182; 77012; 80053; 81001; 83690; 83735; 84100; 85014; 85018; 85025; 85610; 85730; 86850; 86900; 86901; 86927; 86965; 87086; 96374; 96375; 99285; A4649; A9579; J0171; J1200; J1815; J2250; J2354; J2405; J2470; J3010; J3475; J3490; J7030; J7050; P9035; P9060; A9270

== ENCOUNTER → 2024-12-08 | Outpatient (CLI) | payer BC, SELFPAY ==
[2024-12-08 16:36] LABS: Basophils % (Auto) 1 % (0-2.5); Eosinophils # (Auto) 0.1 Thou/mm3 (0.0-0.5); Eosinophils % (Auto) 2 % (0-10); Hematocrit 27.3 % (41.0-53.0); Hemoglobin 9.4 g/dL (13.5-16.0); Immature Granulocytes % (Auto) 0 % (0-0); Lymphocytes # (Auto) 0.7 Thou/mm3 (1.0-4.8); Lymphocytes % (Auto) 22 % (10-50); Mean Corpuscular HGB Conc 34.4 g/dl (31.0-37.0); Mean Corpuscular Hemoglobin 28.7 pg (25.0-35.0); Mean Corpuscular Volume 83 fL (80-100); Monocytes # (Auto) 0.4 Thou/mm3 (0.0-0.8); Monocytes % (Auto) 13 % (0-12); Neutrophils % (Auto) 62 % (37-80); Nucleated Red Blood Cell % 0 /100 WBC (0); RDW Standard Deviation 48.9 fL (35.1-43.9); Red Blood Count 3.28 Miln/mm3 (4.50-5.90); White Blood Count 3.1 Thou/mm3 (3.8-10.6)
[2024-12-08 16:38] LABS: INR 1.3 (0.9-1.3); Partial Thromboplastin Time 29.3 Seconds (22.0-36.0); Prothrombin Time 13.7 Seconds (9.0-12.2)
[2024-12-08 16:46] LABS: Alanine Aminotransferase 24 U/L (10-49); Albumin, Serum 3.5 gm/dL (3.5-5.0); Alkaline Phosphatase 98 U/L (46-116); Anion Gap 8 (7-16); BUN/Creatinine Ratio 18 Ratio (12-20); Bilirubin,Total 1.7 mg/dL (0.3-1.2); Blood Urea Nitrogen 11 mg/dL (9-23); Calcium 8.8 mg/dL (8.3-10.6); Calcium (Corrected) 9.2 mg/dL (8.5-10.1); Carbon Dioxide 27.3 mMol/L (20.0-31.0); Chloride 108 mMol/L (98-107); Creatinine (Component) 0.6 mg/dL (0.6-1.3); Globulin 3.4 gm/dL (2.3-3.5); Glucose 110 mg/dL (74-106); Osmolality,Calculated 285 (275-295); Potassium 4.1 mMol/L (3.4-5.1); Sodium 143 mMol/L (136-145); Total Protein 6.9 gm/dL (5.7-8.2); eGFR > 60 See Note
[2024-12-08 16:49] LABS: Platelet Count 69 Thou/mm3 (140-440)
[2024-12-08 17:08] LABS: Slide Review Platelets confirmed
== END | disposition home or self-care (01) ==
LOC: COPL 15:52
PROVIDERS: PCP Family Medicine; Referring Provider Specialist; Visit Provider Specialist
DX: K76.9 Liver disease, unspecified (principal); K70.9 Alcoholic liver disease, unspecified
CPT/HCPCS: 36415; 80053; 85025; 85610; 85730

== ENCOUNTER → 2024-12-09 | Outpatient (CLI) | payer BC, SELFPAY ==
--- NOTE | 2024-12-09 14:48 | XR_ITS ---
Examination: Abdomen sonogram, Limited Date and time of exam: December 09 2024 1503 hours INDICATIONS: Cirrhosis, increasing abdominal distention this week Technique: Real-time jacobson scale transabdominal sonographic images of the upper abdomen obtained. Findings: Minimal ascitic fluid IMPRESSION: Minimal ascitic fluid
== END | disposition home or self-care (01) ==
PROVIDERS: PCP Family Medicine; Referring Provider Specialist; Visit Provider Specialist
DX: K70.31 Alcoholic cirrhosis of liver with ascites (principal)
CPT/HCPCS: 76705

== ENCOUNTER 2024-12-15 10:02 | Outpatient (AMB) | payer BC, SELFPAY ==
[2024-12-15 10:30] VITALS: BP 149/73; PULSE 82; RESP 16; TEMP 36.8; O2SAT 95; BMI 23.0
--- NOTE | 2024-12-15 10:30 | ACNOTE_ITS ---
Vital Signs 12/15/24 10:30 Height 1.75 m Height Method Stated Weight 70.76 kg Weight Measurement Method Standing Scale BMI 23.0 BP 149/73 H Blood Pressure Source Automatic Cuff Blood Pressure Location Right Upper Arm Position Sitting Respiration 16 Pulse 82 Pulse Source Monitor Temp 98.3 F Temp Source Oral Pulse Oximetry (%) 95 Oxygen Delivery Method Room Air Allergies/Meds Allergies & Medications Allergies No Known Allergies Allergy (Verified 12/15/24 10:31) Medication Reconciliation ferrous sulfate 325 mg (65 mg iron) tablet,delayed release 325 mg PO QOD 1 month #15 tabs 11/26/24 [Rx Confirmed 12/15/24] metformin 750 mg tablet 750 mg PO BIDWMEAL 1 month #60 tabs 11/27/24 [Rx Confirmed 12/15/24] furosemide 20 mg tablet 20 mg PO QDAY 1 month #30 tabs 12/15/24 [Rx] gabapentin 100 mg capsule 100 mg PO QDAY PRN Neuropathic Pain 1 month #30 caps 12/15/24 [Rx] hydrocortisone 1 % topical cream (Anti-Itch (hydrocortisone)) 1 applic topical TID PRN itching #28.35 grams 12/15/24 [Rx] lactulose 10 gram oral packet 20 g PO TID PRN constipation #30 ea 12/15/24 [Rx] spironolactone 25 mg tablet 25 mg PO QDAY 1 month #30 tabs 12/15/24 [Rx] MA Intake Visit Data Collection New Patient or Established: Established Patient (seen at [facility] within 3 years) Seen by Clinical Staff ONLY (RN/MA): No Reason for Visit:: FOLLOW UP/ ULTRASOUND RESULTS Pain Present Currently: Yes Pain Location: Groin Pain scale:: 8 Pain Scale Used: Gallagher-Gupta/Numerical Tile Conduit Layer Required: No PCP or OBGYN visit in last 3 months: Yes Hx Now: No Smoking Status Smoking Status: Never smoker Immunization / Flu Flu Vaccine in the Last 12 Months: Yes Flu Vaccine Exclusion Criteria: No Exclusion Criteria Past Medical History Past Medical History NEUROLOGIC: Negative Neurological Disorders, Cerebrovascular Accident, Transient Ischemic Attacks (TIA), Dementia, Alzheimer's Disease, Parkinson's Disease, Brain Tumor, Meningitis, Seizures, Epilepsy, Multiple Sclerosis, Cerebral Palsy, Amyotrophic Lateral Sclerosis (ALS/Ave Gehrig's), Guillain-Tabor Syndrome, Spina Bifida, Paralysis, Peripheral Neuropathy, Ortiz's Palsy, Subdural Hematoma, Migraine, Head Trauma, Spinal Cord Injury or Traumatic Brain Injury CARDIAC: Positive Cardiac Disorders (only family) and Hypertension; Negative Myocardial Infarction, Cardiac Arrhythmia, Atrial Fibrillation, Angina, Heart Murmur, Coronary Artery Disease, Atherosclerotic Heart Disease, Peripheral Vascular Disease, Hypercholesterolemia, Aneurysm, Congestive Heart Failure, Congenital Heart Disease, Valvular Heart Disease, Rheumatic Fever, Cardiomyopathy, Edema, Pericarditis, Cellulitis, Deep Vein Thrombosis, Hypotension or Varicose Veins RESPIRATORY: Negative Chronic Obstructive Pulmonary Disease (COPD), Asthma, Bronchitis, Emphysema, Pneumonia, Pulmonary Fibrosis, Cystic Fibrosis, Tuberculosis, Pulmonary Embolism, Pulmonary Edema or Sleep Apnea GASTROINTESTINAL: Positive Gastrointestinal Disorders, Hepatitis (hep c, done with tx), Cirrhosis, Gastrointestinal Bleed, Esophageal Varices and Ulcer; Negative Pancreatitis, Celiac Disease, Gall Bladder Disease, Hu's Esophagus, Colitis, Ulcerative Colitis, Diverticulitis, Diverticulosis, Colorectal Cancer, Irritable Bowel, Crohn's Disease, Obstructive Bowel, Hiatal Hernia, Hemorrhoids, Gastroesophageal Reflux Disease or Obesity GENITOURINARY: Negative Genitourinary Disorders, Renal Disease, Kidney Stones, Polycystic Kidney Disease, Neurogenic Bladder, Inguinal Hernia, Dialysis, Prostate Cancer or Benign Prostatic Hyperplasia REPRODUCTIVE: Negative Breast Cancer, Fibroids, Genital Herpes, Gonorrhea, Syphilis or Testicular Cancer MUSCULOSKELETAL: Negative Muscular Dystrophy, Myasthenia Gravis, Marfan's Syndrome, Bone Cancer, Arthritis, Rheumatoid Arthritis, Osteoporosis, Degenerative Disk Disease, Gout, Scoliosis, Carpal Tunnel Syndrome, Fibromyalgia, Fractures, Degenerative Joint Disease, Osteomyelitis or Poliovirus ENT: Negative Cataracts, Glaucoma, Blind, Retinal Detachment, Macular Degeneration, Ear Infection, Deafness, Head Trauma or Eye Prosthesis ENDOCRINE: Negative Endocrine Disorders, Diabetes Mellitus Type 1, Diabetes Mellitus Type 2, Hypoglycemia, Alejandro's Syndrome, [place]'s Disease, Hyperthyroidism, Hypothyroidism, Parathyroid Disease, Pituitary Disease, Systemic Lupus Erythematosus, Syndrome of Inappropriate Antidiuretic Hormone (SIADH), Adrenal Disease or Graves' Disease HEMATOLOGIC: Positive Blood Disorders and Anemia; Negative Leukemia, Hemophilia, Thalassemia, Sickle Cell Disease or Clotting Problems PSYCHO/SOCIAL: Negative Psychiatric Problems, Schizophrenia, Recreational Drug Use, Bipolar Disorder, Depression, Anxiety, Behavior Problems, Self-Mutilation, Attention Deficit Disorder, Attention Deficit Hyperactivity Disorder, Depression, Post Traumatic Stress Disorder or Eating Disorder OTHER HISTORY: Positive Blood Transfusions; Negative Hospitalization, Down Syndrome, Autism, Developmental Delay, Shingles, Falls, Blood Transfusion Reaction, Anesthesia Reactions, Organ Transplant, Chemotherapy, Radiation Therapy, Hyperbaric Therapy, MRSA, VRSA, Vancomycin- Resistant Enterococci, Human Immunodeficiency Virus (HIV), Chicken Pox, Measles, Mumps, Rubella ([place] Measles), Pertussis, Clostridium Difficile, Cancer, Breast Cancer, Colorectal Cancer, Lung Cancer, Prostate Cancer or Testicular Cancer Family History FAMILY HISTORY: Positive Family Cardiac Disorders; Negative Family Psychiatric Problems, Family Respiratory Disorders, Family Gastrointestinal Problems, Family Cancer, Family Surgery or Family Anesthesia Reaction Surgical History SURGICAL: Negative Cardiac Surgery, Open Heart Surgery, Coronary Artery Bypass Graft, Valve Replacement, Vascular Surgery, Coronary Stent, Cardiac Catheterization, Pacemaker, Angiogram, Auto Implanted Cardiovert Defib, Carotid Endarterectomy, Endocrine Surgery, Thyroidectomy, Ear Surgery, Tympanostomy Tube, Eye Surgery, Nose Surgery, Oral Surgery, Tonsillectomy, Adenoidectomy, Cochlear Implant, Corneal Transplant, Throat Surgery, Abdominal Surgery, Tracheostomy, Gastric Bypass Surgery, Gastrostomy, Bowel Surgery, Nephrectomy, Transurethral Resection, Joint Replacement, Amputation, Open Reduction Internal Fixation, Arthroscopy, Neurologic Surgery, Mastectomy, Vasectomy or Organ Transplant Social History SMOKING STATUS: Smoking status: Never smoker SECOND HAND EXPOSURE: second hand exposure: No ALCOHOL: Alcohol Intake: Former HOUSING: Housing: Apartment LIVES WITH: Lives With: Family Patient Lorie Garcia Social History Living Situation History Housing: Apartment Housing Other:: Patient resides in an apartment with his brother and son. Tobacco History Smoking Status: Never smoker Second Hand Smoke Exposure: No Alcohol History Alcohol Intake: Former Review of Systems Report any current symptoms Only answer those that you have currently: Heart & Circulation leg swelling: Yes Digestive System feeling full early: Yes black, tarry stools: No Genital or Urinary System (Male) testicle swelling: Yes Skin or Breasts itching: Yes Neurologic confusion: No Past Medical History Past Medical History Have you ever been diagnosed with any of the following: Neurological Problems Cerebrovascular Accident (CVA): No Transient Ischemic Attacks (TIA): No Dementia: No Alzheimer's Disease: No Parkinson's Disease: No Brain Tumor: No Meningitis: No Seizures: No Epilepsy: No Multiple Sclerosis: No Cerebral Palsy: No Amyotrophic Lateral Sclerosis (ALS/Ave Gehrig's): No Guillain-Tabor Syndrome: No Spina Bifida: No Paralysis: No Peripheral Neuropathy: No Ortiz's Palsy: No Subdural Hematoma: No Migraine: No Head Trauma: No Spinal Cord Injury: No Traumatic Brain Injury: No Cardiology Problems Myocardial Infarction: No Cardiac Arrhythmia: No Atrial Fibrillation: No Angina: No Heart Murmur: No Coronary Artery Disease: No Atherosclerotic Heart Disease: No Peripheral Vascular Disease: No Hypercholesterolemia: No Aneurysm: No Congestive Heart Failure: No Congenital Heart Disease: No Valvular Heart Disease: No Rheumatic Fever: No Cardiomyopathy: No Edema: No Pericarditis: No Cellulitis: No Deep Vein Thrombosis: No Hypertension: Yes Hypotension: No Varicose Veins: No Respiratory Problems Chronic Obstructive Pulmonary Disease (COPD): No Asthma: No Bronchitis: No Emphysema: No Pneumonia: No Pulmonary Fibrosis: No Tuberculosis: No Pulmonary Embolism: No Pulmonary Edema: No Sleep Apnea: No Stomache/Intestinal Problems Hepatitis: Yes (hep c, done with tx) Cirrhosis: Yes Pancreatitis: No Celiac Disease: No Gall Bladder Disease: No Gastrointestinal Bleed: Yes Esophageal Varices: Yes Hu's Esophagus: No Colitis: No Ulcerative Colitis: No Diverticulitis: No Diverticulosis: No Ulcer: Yes Colorectal Cancer: No Irritable Bowel: No Crohn's Disease: No Obstructive Bowel: No Hiatal Hernia: No Hemorrhoids: No Gastroesophageal Reflux Disease: No Obesity: No Genital/Urinary Problems Renal Disease: No Kidney Stones: No Polycystic Kidney Disease: No Neurogenic Bladder: No Inguinal Hernia: No Dialysis: No Prostate Cancer: No Benign Prostatic Hyperplasia: No Reproductive Problems Breast Cancer: No Fibroids: No Genital Herpes: No Gonorrhea: No Syphilis: No Testicular Cancer: No Musculoskeletal Problems Muscular Dystrophy: No Myasthenia Gravis: No Marfan's Syndrome: No Bone Cancer: No Arthritis: No Rheumatoid Arthritis: No Osteoporosis: No Degenerative Disk Disease: No Gout: No Scoliosis: No Carpal Tunnel Syndrome: No Fibromyalgia: No Fractures: No Degenerative Joint Disease: No Osteomyelitis: No Poliovirus: No Head,Eye,Nose,Throat Problems Cataracts: No Glaucoma: No Blind: No Retinal Detachment: No Macular Degeneration: No Chronic Ear Infections: No Deafness: No Eye Prosthesis: No Endocrine Problems Diabetes Mellitus Type 1: No Diabetes Mellitus Type 2: No Hypoglycemia: No Winslow's Syndrome: No [place]'s Disease: No Hyperthyroidism: No Hypothyroidism: No Parathyroid Disease: No Pituitary Disease: No Systemic Lupus Erythematosus: No Syndrome of Inappropriate Antidiuretic Hormone: No Adrenal Disease: No Graves' Disease: No Blood Problems Anemia: Yes Leukemia: No Hemophilia: No Thalassemia: No Sickle Cell Disease: No Clotting Problems: No Psychologic Problems Schizophrenia: No Recreational Drug Use: No Bipolar Disorder: No Depression: No Anxiety: No Behavior Problems: No Self-Mutilation: No Attention Deficit Disorder: No Attention Deficit Hyperactivity Disorder: No Depression: No Post Traumatic Stress Disorder: No Eating Disorder: No Other Problems Hospitalization: No Down Syndrome: No Autism: No Developmental Delay: No Shingles: No Falls: No Blood Transfusions: Yes Blood Transfusion Reaction: No Anesthesia Reactions: No Organ Transplant: No Chemotherapy: No Radiation Therapy: No Hyperbaric Therapy: No MRSA: No VRSA: No Vancomycin-Resistant Enterococci: No Human Immunodeficiency Virus (HIV): No Chicken Pox: No Measles: No Mumps: No Rubella ([place] Measles): No Pertussis: No Clostridium Difficile: No Cancer: No Lung Cancer: No Surgical History Carotid Endarterectomy: No Coronary Artery Bypass Graft: No Valve Replacement: No Pacemaker: No Thyroidectomy: No History of Present Illness HPI Narrative 54-year-old male with past medical history of esophageal varices, cirrhosis, psoriasis, hepatitis C infection, type-2 diabetes, hypertension presenting to [facility] on 12/15/2024 for follow-up after hospital discharge. Patient was discharged after he was admitted for esophageal variceal bleeding secondary to cirrhosis history. Patient also had biopsy of liver lesions which were negative for malignancy. Patient presenting today reporting abdominal fullness, lower extremity and scrotal edema, needle-like pain in the thighs exacerbated post- activity (jogging). Patient was seen by Dr. Henry (GI) for biopsy results and scheduled colonoscopy to be completed in mid-December. Patient understands that he will need liver transplant in the near future; told the patient to follow-up with Dr. Henry to set that up after the colonoscopy. Review of Systems Cardiovascular Cardiovascular: Reports leg edema Gastrointestinal Gastrointestinal: Reports early satiety and Denies melena Genitourinary Genitourinary: Reports scrotal swelling Integumentary/Breasts Skin/Breast: Reports pruritus Neurologic Neurologic: Denies confusion Psychiatric Psychiatric: Denies confusion Objective/Exam Narrative Physical exam: Physical Exam: GENERAL: Awake, answering questions appropriately, appears mildly jaundiced HEENT: NC/AT. Moist mucosa. PERRLA/EOMI. No scleral icterus CARDIO: Heart RRR, II out of systolic ejection murmur, no JVD. PULM: No coughing or visible SOB. Lungs CTA B/L. GI: Abdomen soft, non-tender, distended without any fluid wave appreciated. No caput medusae. Hyperactive bowel sounds. Tympanic sounds on percussion [employer]: Scrotal angiokeratoma, no erythema or exudative lesions noted SKIN/MSK/EXT: +1 pitting edema up to bilateral shins. No wounds/discoloration/rashes/amputations noted. +Pedal pulses present B/L. NEURO: Oriented x3, Moves extremities x4, no focal neurological deficits Assessment & Plan Diagnosis / Problem List (1) Cirrhosis of liver: Status: Acute Qualifiers: Hepatic cirrhosis type: other cirrhosis Qualified Code(s): K74.69 - Other cirrhosis of liver Assessment & Plan: Patient has history of cirrhosis secondary to chronic hepatitis C infection On Coreg 3.125mg po bid for esophageal varice prophylaxis Patient is hypertensive with +1 pitting edema On exam, patient does have mildly jaundiced skin, minimal ascites but anicteric sclera, and no gynocomastia, spider angiomas or caput medusae Liver biopsy was negative for malignancy; patient follows Dr. Henry (GI) for scheduled colonoscopy Plan: Will start patient on Lasix 20mg po daily and Spirnolactone 25mg po daily Added Lactulose 20mg po TID PRN, patient is having 2 BMs a day on average; understands that he can take Lactulose if number on BM drops. Councilled on keeping track of weight Patient has Coreg, will call if needs refill, continue otherwise Continue GI follow-up and ask for transplant list initiation (2) Hepatic lesion: Status: Acute Assessment & Plan: On MRCP noted to have Cirrhosis, multiple hepatic lesions, differential would include hepatic metastases, multifocal primary hepatocellular carcinoma During hospitalization tumor markers AFP, CEA, CA 19-9 negative/not elevated Liver biopsy negative for malignancy Plan: GI referral for colonoscopy to rule out metastasis and possible biopsy outpatient (3) Type 2 diabetes mellitus: Status: Acute Qualifiers: Diabetes mellitus complication status: with hyperglycemia Diabetes mellitus retirement insulin use: without long term care social worker use Qualified Code(s): E11.65 - Type 2 diabetes mellitus with hyperglycemia Assessment & Plan: Last A1c of 9.0 on 11/01/2024 Patient states that his blood sugars at home range from 80-130 which does not correlate with A1c levels Denies any changes in vision or foot lesions Patient does have needle-like pain in the thigh region Patient on metformin 750mg ER BID, states he takes it as prescribed Was previously on Ozempic 0.25 with some GI side effects (nausea, abdominal pain) Plan: Repear A1c in January Refilled metformin and councilled on importance of keeping blood sugars stable Prescribed PRN gabapentin 100mg po daily for neuropathic pain (4) Angiokeratoma of scrotum: Status: Acute Assessment & Plan: On presentation patient states that he's been having itching sensation in scortum Shaves area and has noticed small bumps which bleed with scratching Denies any concerning systemic symptoms (fever, chills, purulent lesions) On inspection patient has angiokeratoma without erythema or exudation Plan: Topical hydrocortisone ordered Additional Assessment Attending note: I, Jonh Johnson MD, attest that I was physically present for the rocha portions of the service and evaluated the patient with the resident and I reviewed and discussed the case with the resident and agree with the resident's findings and plans of care as documented above. Jonh Johnson MD Physician Billing Established Patient Established Patient: E/M Level 3-CPT 85011 Office Procedures [facility] Level of Care Nursing/Assessment Patient Status: Established Patient Nursing Assessment/Reassessment: Medication Reconciliation, Update PMH in EMR and Vital Signs Coordination of Care: Complex Care and Chronic Disease 1-5, Consent,records obtained, informed consent, Education Simp Pt/Fam, Lab and Imaging orders, Results/Orders obtained and Staff clarify orders Established Patient Charge Established Patient Point Assignment: 105 Established Patient Point Charge: EP Level 3 (80-115)
== END 2024-12-15 11:47 | disposition home or self-care (01) ==
LOC: HODAHC 10:02
PROVIDERS: Supervising Provider Internal Medicine
DX: K74.60 Unspecified cirrhosis of liver (principal); I85.11 Secondary esophageal varices with bleeding; K76.89 Other specified diseases of liver; D29.4 Benign neoplasm of scrotum; E11.65 Type 2 diabetes mellitus with hyperglycemia; Z79.84 Long term (current) use of oral hypoglycemic drugs
CPT/HCPCS: 99213; G0463

== ENCOUNTER 2025-01-20 10:50 | Day surgery (SDC) | payer BC, SELFPAY ==
[2025-01-19 15:27] VITALS: BMI 22.7
[2025-01-20] VITALS (12 sets, daily range): BP systolic 103–165; BP diastolic 62–95; PULSE 62–77; RESP 12–18; TEMP 37–37.3; O2SAT 95–100; BMI 21.2
[2025-01-20] MEDS: SODIUM CHLORIDE 0.9% 500 ML 500 ML 20 ML IV (12:08)
[2025-01-20] MEDS: fentaNYL CIT INJ 50 mCg/ML AMP 2ML (ASD USE ONLY) IVP (12:15)
[2025-01-20] MEDS: MIDAZOLAM INJ 1 MG/ML VIAL 2 ML (ASD USE ONLY) 2 MG IVP (12:15)
[2025-01-20] MEDS: MIDAZOLAM INJ 1 MG/ML VIAL 2 ML (ASD USE ONLY) 4 MG (12:38)
[2025-01-20] MEDS: LIDOCAINE JELLY 2% (Urojet) 10 ML TUBE TOP (12:47)
== END 2025-01-20 13:40 | disposition home or self-care (01) ==
PROVIDERS: PCP Family Medicine; Referring Provider Specialist; Visit Provider Specialist
PROC: 0DBE8ZX Excision of Large Intestine, Via Natural or Artificial Opening Endoscopic, Diagnostic (ICD-10-PCS; CPT 45380; principal; 2025-01-20 12:00)
DX: K64.3 Fourth degree hemorrhoids (principal); D12.4 Benign neoplasm of descending colon; D62 Acute posthemorrhagic anemia; K70.9 Alcoholic liver disease, unspecified
CPT/HCPCS: 46221; 45385; 45380; J1200; J2250; J3010; J7999

== ENCOUNTER 2025-02-08 01:20 | Emergency (ER) | payer BC, SELFPAY ==
[2025-02-08 01:21] VITALS: BMI 22.1
[2025-02-08 01:31] VITALS: BP 156/85; PULSE 96; RESP 18; TEMP 37.2; O2SAT 99
--- NOTE | 2025-02-08 01:34 | PD.EDADULT ---
ED General RME/HPI General Chief complaint: GI Bleed Stated complaint: RECTAL BLEED Time Seen by Provider: 02/08/25 01:31 Arrival date/time: 02/08/25 01:20 RME / HPI RME / HPI narrative: 54-year-old male with past medical history of esophageal varices, psoriasis, hep C, NIDDM, hypertension, and hemorrhoids comes into the ED with chief complaints of rectal bleeding. Patient stated that today around 40 minutes ago he had an episode of bloody bowel movement in which she describes that he thought he was having diarrhea, but when he looked at the toilet bowl it was pinkish in color. He states that since then he has had another bowel movement that was small similar to this morning in color. He denies any dizziness, blurry vision, palpitations, chest pain, shortness of breath abdominal pain, or burning sensation during urination. Otherwise has no other complaints. Patient recently underwent a colonoscopy on 12/2024 which showed internal and external hemorrhoids and 1 large polyps which was resected. Patient underwent an EGD on 10/2024 which showed esophageal varices. Patient was recently in the hospital due to similar symptoms and is currently following outpatient with GI. Denies any smoking, drugs, alcohol Related Data Home Medications ?Medication ?Instructions ?Recorded ?Confirmed carvedilol 3.125 mg tablet 3.125 mg PO QDAY 01/20/25 01/20/25 Previous Rx's ?Medication ?Instructions ?Recorded ferrous sulfate 325 mg (65 mg 325 mg PO QOD 1 month #15 tabs 11/26/24 iron) tablet,delayed release metformin 750 mg tablet 750 mg PO BIDWMEAL 1 month #60 tabs 11/27/24 furosemide 20 mg tablet 20 mg PO QDAY 1 month #30 tabs 12/15/24 spironolactone 25 mg tablet 25 mg PO QDAY 1 month #30 tabs 12/15/24 Allergies Allergy/AdvReac Type Severity Reaction Status Date / Time No Known Allergies Allergy Verified 02/08/25 01:23 Review of Systems Review of Systems Systems Reviewed: All systems reviewed, normal except as documented Past Medical History Past Medical History CARDIAC: Positive Cardiac Disorders and Hypertension GASTROINTESTINAL: Positive Gastrointestinal Disorders, Cirrhosis, Gastrointestinal Bleed, Esophageal Varices and Ulcer HEMATOLOGIC: Positive Blood Disorders and Anemia OTHER HISTORY: Positive Blood Transfusions Family History FAMILY HISTORY: Positive Family Cardiac Disorders Social History SMOKING STATUS: Never smoker SECOND HAND EXPOSURE: No SUBSTANCE USE: does not use ALCOHOL: Never ED Exam Narrative Physical exam: Gen: A&O X 3, NAD HEENT: NCAT, EOMI, Pupils reactive CAMILA, not icteric. External ears normal. No rhinorrhea. Moist mucous membranes. Neck: Supple, full range of motion, no observable masses, No meningeal sign. Lungs: No Respiratory distress, clear bilateral. CV: RRR, no murmurs. Abdomen: Soft, nondistended, No rebound tenderness. MSK: No joint swelling, no redness, peripheral pulses presents, lumbar with no edema. Skin: No rashes, petechiae, lesions. Rectal: Patient deferred Neuro: No focal neurological deficits appreciated, sensory and motor intact. Psych: Cooperative, appropriate mood and effect. 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 START 00 Care 02/08/25 01:49 Active Continuous Pulse Oximetry NOW Care 02/08/25 01:49 Completed EKG (ED ONLY) *Do not use* NOW Care 02/08/25 01:49 Completed Insert IV NOW Care 02/08/25 02:09 Active Orthostatic Vitals NOW Care 02/08/25 03:41 Active EKG (ED Only) Stat Exams 02/08/25 01:49 Draft CBC [CBC] Routine Lab 02/08/25 04:20 Results CBC [CBC] Stat Lab 02/08/25 02:20 Completed CMP [Comprehensive Metabolic Panel] Stat Lab 02/08/25 02:20 Completed Drug Screen,Urine Stat Lab 02/08/25 03:57 Completed Lactic Acid [Lactate (Lactic Acid)] Routine Lab 02/08/25 04:20 Completed Lactic Acid [Lactate (Lactic Acid)] Stat Lab 02/08/25 02:20 Results Magnesium Stat Lab 02/08/25 02:20 Completed Procalcitonin Stat Lab 02/08/25 02:20 Completed Type and Screen Stat Lab 02/08/25 02:20 Completed UA [Urinalysis] Stat Lab 02/08/25 03:57 Completed Magnesium Sulfate 2 GM Ivpb [Magnesium Sulfate Ivpb] Med 02/08/25 03:32 Active 2 gm in 50 ml IV X1 Sodium Chloride 0.9% 1000 ml [Ns] 1,000 ml Med 02/08/25 02:09 Discontinued IV 999 mls/hr Vital Signs Vital signs: Vital Signs Temperature 98.9 F 02/08/25 01:31 Pulse Rate 96 02/08/25 01:31 Respiratory Rate 18 02/08/25 01:31 Blood Pressure 156/85 H 02/08/25 01:31 Pulse Oximetry (%) 99 02/08/25 01:31 Oxygen Delivery Method Room Air 02/08/25 01:31 Discharge Plan Plan Patient Disposition: HOME (Self Care) Prescriptions/Referrals Prescriptions/Med Rec: No Action furosemide 20 mg tablet 20 mg PO QDAY 30 Days Qty: 30 3RF spironolactone 25 mg tablet 25 mg PO QDAY 30 Days Qty: 30 3RF ferrous sulfate 325 mg (65 mg iron) Tablet,Delayed Release (Dr/Ec) 325 mg PO QOD 30 Days Qty: 15 3RF metformin 750 mg tablet 750 mg PO BIDWMEAL 30 Days Qty: 60 3RF carvedilol 3.125 mg tablet 3.125 mg PO QDAY Referrals: Juice Mahoney MD [Primary Care Provider] - In 1 week Problem List Clinical Impression: Rectal bleeding, Hemorrhoid Patient/Caregiver Discharge Instructions Other Activity Instructions:: Follow-up primary care physician within 5 days Follow-up with your vacuum filter operator in the next 2 to 3 days. Come back to the ED if you develop dizziness, weakness, visual disturbances, or develop any more dusty red blood per rectum or any signs of active bleeding. Education Materials: Bleeding Gastrointestinal, ED Hemorrhoids Print Language: German Stand Alone Forms: Karla Award Info., Patient Portal Info Letter MDM Narrative MDM hospital course: Patient was seen and evaluated immediate upon arrival by myself. Diagnostic imaging and labs were ordered. Ordered 1 L NS. Hemoglobin was stable at 9.1 and was previously 9.4. Lactic acid slightly elevated at 2.5. Patient did get 1 L of fluids and he states that he feels entirely fine and does not have any dizziness or any facial disturbances at this time. Patient also stated that he had initially only 2 bowel movements that were pinkish in color and when he came into the ED he had 2 bowel movements in the last 1 was more brownish now and less pinkish in color or there was no blood either. Will order a repeat CBC and lactic acid for 4:30 along with orthostatic vitals. Patient stated that he can follow-up outpatient with his vacuum filter operator within the next 2 or 3 days. Patient's repeat CBC came back with hemoglobin of 7.8, which is is to be expected given that patient got 1 L of IV fluids. Patient at this time does not have any dizziness, visual disturbances, or feelings of weakness. Patient's orthostatic vitals were also negative. Patient states that he feels fine to go home and that he will follow-up with his vacuum filter operator in the next 2 or 3 days. At this time patient is stable enough to be discharged home since his vital signs have all been stable for now. He does not have any dusty bleeding. Patient is pinkish color in the toilet bowl is likely from a hemorrhoid bleed. Case disclosed with Attending Dr. Jose Montez PGY2 Disclaimer: Even though this this note was dictated by speech recognition and even though it was carefully revised there may still be minor errors in home health aide caregiver due to voice recognition software. Medication Administration(s) Medication Administration History Magnesium Sulfate (Magnesium Sulfate Ivpb) 2 gm in 50 mls @ 25 mls/hr IV X1 ONE Stop: 02/08/25 05:31 Last Admin: 02/08/25 03:46 Dose: 25 mls/hr Documented By: YASMANY Discontinued Medications Sodium Chloride (Ns) 1,000 mls @ 999 mls/hr IV .Q1H1M ONE Stop: 02/08/25 03:09 Last Infusion: 02/08/25 03:37 Dose: Infused Documented By: Admin: 02/08/25 02:27 Dose: 999 mls/hr Documented By: YASMANY
--- NOTE | 2025-02-08 01:49 | EKG_ITS ---
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
[2025-02-08 02:25] VITALS: BP 128/77; PULSE 81; PULSE 85; RESP 20; TEMP 37; O2SAT 97
[2025-02-08] MEDS: SODIUM CHLORIDE 0.9% 1000 ML 1,000 ML 999 ML IV (02:27)
[2025-02-08 02:45] LABS: Lactate (Lactic Acid) 2.5 mMol/L (0.4-2.0)
[2025-02-08 02:50] LABS: Basophils # (Auto) 0.0 Thou/mm3 (0.0-0.2); Basophils % (Auto) 1 % (0-2.5); Eosinophils # (Auto) 0.1 Thou/mm3 (0.0-0.5); Eosinophils % (Auto) 3 % (0-10); Hematocrit 29.9 % (41.0-53.0); Hemoglobin 9.1 g/dL (13.5-16.0); Immature Granulocytes Auto 0.01 Thou/mm3 (0.00-0.00); Lymphocytes # (Auto) 1.0 Thou/mm3 (1.0-4.8); Lymphocytes % (Auto) 22 % (10-50); Mean Corpuscular HGB Conc 30.4 g/dl (31.0-37.0); Mean Corpuscular Hemoglobin 24.3 pg (25.0-35.0); Mean Corpuscular Volume 80 fL (80-100); Monocytes # (Auto) 0.4 Thou/mm3 (0.0-0.8); Monocytes % (Auto) 10 % (0-12); Neutrophils # (Auto) 2.8 Thou/mm3 (1.8-7.7); Neutrophils % (Auto) 64 % (37-80); Nucleated Red Blood Cell # 0.00 Thou/mm3 (0.00-0.00); Nucleated Red Blood Cell % 0 /100 WBC (0); Platelet Count 80 Thou/mm3 (140-440); RDW Standard Deviation 45.2 fL (35.1-43.9); Red Blood Count 3.74 Miln/mm3 (4.50-5.90); White Blood Count 4.3 Thou/mm3 (3.8-10.6)
[2025-02-08 03:28] LABS: Alanine Aminotransferase 24 U/L (10-49); Albumin, Serum 3.4 gm/dL (3.5-5.0); Albumin/Globulin Ratio 0.9 (1.2-2.2); Alkaline Phosphatase 125 U/L (46-116); Anion Gap 10 (7-16); Aspartate Amino Transferase 51 U/L (0-34); BUN/Creatinine Ratio 10 Ratio (12-20); Bilirubin,Total 2.0 mg/dL (0.3-1.2); Blood Urea Nitrogen 8 mg/dL (9-23); Calcium 8.7 mg/dL (8.3-10.6); Calcium (Corrected) 9.2 mg/dL (8.5-10.1); Carbon Dioxide 23.2 mMol/L (20.0-31.0); Chloride 106 mMol/L (98-107); Creatinine (Component) 0.8 mg/dL (0.6-1.3); Estimated Creatinine Clearance 100.4 mL/min (>60); Globulin 3.6 gm/dL (2.3-3.5); Glucose 227 mg/dL (74-106); Magnesium 1.3 mg/dL (1.6-2.6); Osmolality,Calculated 282 (275-295); Potassium 3.7 mMol/L (3.4-5.1); Procalcitonin < 0.04 ng/ml (0.0-0.49); Sodium 139 mMol/L (136-145); Total Protein 7.0 gm/dL (5.7-8.2); eGFR > 60 See Note
[2025-02-08] MEDS: Magnesium Sulfate 2 GM Ivpb 2 GM/50 ML BAG IV (03:46)
[2025-02-08 03:49] VITALS: BP 126/70; PULSE 70; RESP 16; TEMP 36.8; O2SAT 98
[2025-02-08 03:53] VITALS: BP 120/74; BP 125/73; BP 126/70; PULSE 74; PULSE 79; PULSE 82
[2025-02-08 04:18] LABS: Collection Type, Urine Voided
[2025-02-08 04:21] VITALS: BP 128/67; PULSE 67; RESP 15; TEMP 36.8; O2SAT 97
[2025-02-08 04:33] LABS: Amphetamine/Methamp Scrn,U Negative (Negative); Barbiturate Screen,Urine Negative (Negative); Benzodiazepines Screen,Urine Negative (Negative); Benzoylecgonine Screen, Ur Negative (Negative); Fentanyl Screen,Urine Negative (Negative); Opiate Screen,Urine Positive (Negative); THC Screen,Urine Negative (Negative)
[2025-02-08 04:36] LABS: Bilirubin,Urine Negative (Negative); Blood,Urine Negative (Negative); Clarity,Urine Clear (Clear/Hazy); Color,Urine Yellow (Lt Yel-Yel); Glucose, Urine 3+ (Negative); Ketones,Urine Trace (Negative); Leukocyte Esterase,Urine Negative (Negative); Nitrite,Urine Negative (Negative); PH,Urine 5.5 (5.0-7.0); Protein,Urine Trace (Neg - Trace); RBC,Urine 2 /hpf (0-3); Specific Gravity,Urine 1.031 (1.001-1.035); Squamous Epithelial Cell,Urine < 1 /hpf (0-5); Urobilinogen,Urine Negative mg/dL (0.0-1.0); WBC,Urine 2 /hpf (0-5)
[2025-02-08 04:36] LABS: Lactate (Lactic Acid) 1.9 mMol/L (0.4-2.0)
[2025-02-08 04:45] LABS: Basophils # (Auto) 0.0 Thou/mm3 (0.0-0.2); Basophils % (Auto) 1 % (0-2.5); Eosinophils # (Auto) 0.0 Thou/mm3 (0.0-0.5); Eosinophils % (Auto) 1 % (0-10); Hematocrit 26.0 % (41.0-53.0); Immature Granulocytes Auto 0.01 Thou/mm3 (0.00-0.00); Lymphocytes # (Auto) 0.5 Thou/mm3 (1.0-4.8); Lymphocytes % (Auto) 15 % (10-50); Mean Corpuscular HGB Conc 30.0 g/dl (31.0-37.0); Mean Corpuscular Hemoglobin 24.1 pg (25.0-35.0); Mean Corpuscular Volume 81 fL (80-100); Monocytes # (Auto) 0.3 Thou/mm3 (0.0-0.8); Monocytes % (Auto) 10 % (0-12); Neutrophils # (Auto) 2.2 Thou/mm3 (1.8-7.7); Neutrophils % (Auto) 73 % (37-80); Nucleated Red Blood Cell # 0.00 Thou/mm3 (0.00-0.00); Nucleated Red Blood Cell % 0 /100 WBC (0); RDW Standard Deviation 45.3 fL (35.1-43.9); Red Blood Count 3.23 Miln/mm3 (4.50-5.90); White Blood Count 3.0 Thou/mm3 (3.8-10.6)
[2025-02-08 04:57] LABS: Hemoglobin 7.8 g/dL (13.5-16.0); Platelet Count 51 Thou/mm3 (140-440)
[2025-02-08 05:33] VITALS: BP 116/69; PULSE 69; RESP 16; TEMP 36.7; O2SAT 97
[2025-02-08 05:41] LABS: Reflex Lactate? Y
[2025-02-08 08:22] LABS: Slide Review Platelets confirmed
== END 2025-02-08 05:34 | disposition home or self-care (01) ==
PROVIDERS: PCP Family Medicine
DX: K64.9 Unspecified hemorrhoids (principal); I10 Essential (primary) hypertension; E11.9 Type 2 diabetes mellitus without complications; Z87.19 Personal history of other diseases of the digestive system; Z79.899 Other long term (current) drug therapy; Z79.84 Long term (current) use of oral hypoglycemic drugs
CPT/HCPCS: 36415; 80053; 80307; 81001; 83605; 83735; 84145; 85025; 86850; 86900; 86901; 93005; 99284; J3475; J7030

== ENCOUNTER → 2025-02-15 | Outpatient (CLI) | payer BC, SELFPAY ==
[2025-02-15 16:13] LABS: Basophils # (Auto) 0.0 Thou/mm3 (0.0-0.2); Basophils % (Auto) 1 % (0-2.5); Eosinophils # (Auto) 0.1 Thou/mm3 (0.0-0.5); Eosinophils % (Auto) 2 % (0-10); Hematocrit 25.8 % (41.0-53.0); Immature Granulocytes Auto 0.01 Thou/mm3 (0.00-0.00); Lymphocytes # (Auto) 1.0 Thou/mm3 (1.0-4.8); Lymphocytes % (Auto) 33 % (10-50); Mean Corpuscular HGB Conc 29.1 g/dl (31.0-37.0); Mean Corpuscular Hemoglobin 23.4 pg (25.0-35.0); Mean Corpuscular Volume 81 fL (80-100); Monocytes # (Auto) 0.4 Thou/mm3 (0.0-0.8); Monocytes % (Auto) 13 % (0-12); Neutrophils # (Auto) 1.5 Thou/mm3 (1.8-7.7); Neutrophils % (Auto) 51 % (37-80); Nucleated Red Blood Cell # 0.00 Thou/mm3 (0.00-0.00); Nucleated Red Blood Cell % 0 /100 WBC (0); RDW Standard Deviation 46.7 fL (35.1-43.9); Red Blood Count 3.20 Miln/mm3 (4.50-5.90); White Blood Count 2.9 Thou/mm3 (3.8-10.6)
[2025-02-15 16:21] LABS: AFP Non-Pregnant 2.40 ng/mL (<8.10); Alanine Aminotransferase 22 U/L (10-49); Albumin, Serum 3.4 gm/dL (3.5-5.0); Albumin/Globulin Ratio 1.0 (1.2-2.2); Alkaline Phosphatase 104 U/L (46-116); Anion Gap 8 (7-16); Aspartate Amino Transferase 36 U/L (0-34); BUN/Creatinine Ratio 18 Ratio (12-20); Bilirubin,Total 1.7 mg/dL (0.3-1.2); Blood Urea Nitrogen 11 mg/dL (9-23); Calcium 9.3 mg/dL (8.3-10.6); Calcium (Corrected) 9.8 mg/dL (8.5-10.1); Carbon Dioxide 27.5 mMol/L (20.0-31.0); Chloride 105 mMol/L (98-107); Creatinine (Component) 0.6 mg/dL (0.6-1.3); Globulin 3.5 gm/dL (2.3-3.5); Glucose 103 mg/dL (74-106); Osmolality,Calculated 278 (275-295); Potassium 3.6 mMol/L (3.4-5.1); Sodium 140 mMol/L (136-145); Total Protein 6.9 gm/dL (5.7-8.2); eGFR > 60 See Note
[2025-02-15 16:24] LABS: Hemoglobin 7.5 g/dL (13.5-16.0); Platelet Count 65 Thou/mm3 (140-440)
[2025-02-15 16:31] LABS: INR 1.3 (0.9-1.3); Prothrombin Time 14.3 Seconds (9.0-12.2)
[2025-02-15 16:32] LABS: Slide Review Platelets confirmed
== END | disposition home or self-care (01) ==
LOC: COPL 15:14
PROVIDERS: PCP Family Medicine; Referring Provider Specialist; Visit Provider Specialist
DX: E78.9 Disorder of lipoprotein metabolism, unspecified (principal)
CPT/HCPCS: 36415; 80053; 82105; 85025; 85610

== ENCOUNTER → 2025-03-16 | Outpatient (CLI) | payer BC, SELFPAY ==
--- NOTE | 2025-03-16 08:40 | XR_ITS ---
Examination: MRI abdomen , with intravenous contrast. Exam date and time: March 16, 2025 0922 hours, comparison MRI abdomen November 24, 2024 INDICATIONS: Abdominal bloating and bleeding from the stomach, history liver disease for years, cirrhosis, liver irregular in contour with multiple liver lesions throughout the entire liver MR study November 24, 2024 Technique: Multiple axial, sagittal and coronal images of the abdomen have been obtained with the Siemens high-resolution 1.5 Afshan MRI scanner. Axial, sagittal and coronal images are obtained post intravenous injection 19 cc gadolinium. Findings: Cirrhosis, liver nodular in contour Significant splenomegaly Multiple subtle enhancing lesions throughout the liver on the postcontrast images, very subtle No gallstones No pancreatic mass Aorta normal size No bowel obstruction No hydronephrosis IMPRESSION: Multiple subcentimeter subtle enhancing lesions throughout the liver Consider ultrasound-guided liver biopsies to exclude true hepatic lesions
== END | disposition home or self-care (01) ==
LOC: SMRI 08:11
DX: K76.9 Liver disease, unspecified (principal); Z87.19 Personal history of other diseases of the digestive system
CPT/HCPCS: 74182; A9577

== ENCOUNTER → 2025-05-31 | Outpatient (CLI) | payer BC, SELFPAY ==
[2025-05-31 13:20] LABS: Basophils # (Auto) 0.0 Thou/mm3 (0.0-0.2); Basophils % (Auto) 1 % (0-2.5); Eosinophils # (Auto) 0.1 Thou/mm3 (0.0-0.5); Eosinophils % (Auto) 3 % (0-10); Hematocrit 38.1 % (41.0-53.0); Hemoglobin 12.4 g/dL (13.5-16.0); Immature Granulocytes Auto 0.00 Thou/mm3 (0.00-0.00); Lymphocytes # (Auto) 0.8 Thou/mm3 (1.0-4.8); Lymphocytes % (Auto) 29 % (10-50); Mean Corpuscular HGB Conc 32.5 g/dl (31.0-37.0); Mean Corpuscular Hemoglobin 28.5 pg (25.0-35.0); Mean Corpuscular Volume 88 fL (80-100); Monocytes # (Auto) 0.3 Thou/mm3 (0.0-0.8); Monocytes % (Auto) 12 % (0-12); Neutrophils # (Auto) 1.5 Thou/mm3 (1.8-7.7); Neutrophils % (Auto) 56 % (37-80); Nucleated Red Blood Cell # 0.00 Thou/mm3 (0.00-0.00); Nucleated Red Blood Cell % 0 /100 WBC (0); RDW Standard Deviation 66.6 fL (35.1-43.9); Red Blood Count 4.35 Miln/mm3 (4.50-5.90); White Blood Count 2.7 Thou/mm3 (3.8-10.6)
[2025-05-31 13:27] LABS: Platelet Count 47 Thou/mm3 (140-440)
[2025-05-31 13:29] LABS: Alanine Aminotransferase 25 U/L (10-49); Albumin, Serum 3.8 gm/dL (3.5-5.0); Albumin/Globulin Ratio 1.0 (1.2-2.2); Alkaline Phosphatase 129 U/L (46-116); Anion Gap 6 (7-16); Aspartate Amino Transferase 39 U/L (0-34); BUN/Creatinine Ratio 10 Ratio (12-20); Bilirubin,Total 1.9 mg/dL (0.3-1.2); Blood Urea Nitrogen 8 mg/dL (9-23); Calcium 9.2 mg/dL (8.3-10.6); Calcium (Corrected) 9.4 mg/dL (8.5-10.1); Carbon Dioxide 27.8 mMol/L (20.0-31.0); Cardiac Risk Estimate 2.4 RATIO (4.0-6.7); Chloride 105 mMol/L (98-107); Cholesterol 127 mg/dL (132-200); Creatinine (Component) 0.8 mg/dL (0.6-1.3); Globulin 4.0 gm/dL (2.3-3.5); Glucose 331 mg/dL (74-106); HDL Cholesterol 54 mg/dL (40-60); LDL Cholesterol,Calculated 59 mg/dL (0-130); Osmolality,Calculated 288 (275-295); Potassium 4.3 mMol/L (3.4-5.1); Sodium 139 mMol/L (136-145); Total Protein 7.8 gm/dL (5.7-8.2); Triglycerides 72 mg/dL (30-150); eGFR > 60 See Note
[2025-05-31 13:29] LABS: Creatinine MALB Rnd Ur 84 mg/dL (30-125); Microalbumin Creat Ratio 5 mg/gCrea (<30); Microalbumin, Random Urine 4 mg/L (0-300)
[2025-05-31 14:12] LABS: Slide Review Platelets confirmed
[2025-05-31 15:30] LABS: Glucose Estimated Average 160 mg/dL (80-131); Hemoglobin A1C 7.2 % Hgb (4.8-6.0)
== END | disposition home or self-care (01) ==
LOC: COPL 11:26
PROVIDERS: PCP Internal Medicine; Referring Provider Internal Medicine; Visit Provider Internal Medicine
DX: B18.2 Chronic viral hepatitis C (principal); K71.7 Toxic liver disease with fibrosis and cirrhosis of liver; E11.65 Type 2 diabetes mellitus with hyperglycemia; I10 Essential (primary) hypertension
CPT/HCPCS: 36415; 80053; 80061; 82043; 82570; 83036; 85025

== ENCOUNTER 2025-06-13 22:56 | Inpatient (IN) | payer BC, SELFPAY ==
[2025-06-13 22:58] VITALS: BMI 21.9
[2025-06-13 23:10] VITALS: BP 146/80; PULSE 100; RESP 18; TEMP 37.1; O2SAT 99
--- NOTE | 2025-06-13 23:11 | XR_ITS ---
Examination: CT abdomen and pelvis without contrast. Coronal 3-D reconstructions. Sagittal 2-D reconstructions. Date and time of exam: June 14, 2025, 0008 hours, comparison November 27, 2024 INDICATIONS: Abdominal pain nausea today with dark stools CTDI: vol (mGy): 5.69 DLP: (mGycm): 331 Technique: Axial images of the abdomen have been obtained, 3 mm slice thickness Intravenous contrast material has not been administered. Low dose protocols were performed. One or more of the following dose reduction techniques were used; automated exposure control, adjustment of the mA and/or KV according to patient size, use of iterative reconstruction technique. Findings: Cirrhosis, liver lobular contour Prominent splenomegaly Moderate ascites Cholelithiasis, gallbladder wall appears thickened No definite pancreatic mass No renal or ureteral calculi No definite pericecal inflammatory change Sigmoid colon wall is thickened Air and stool in the colon Contracted urinary bladder Lumbar stabilization with satisfactory alignment IMPRESSION: Cirrhosis Prominent splenomegaly Moderate ascites Cholelithiasis, gallbladder wall is thickened but again the patient has ascites, consider HIDA scan or MRCP follow-up as clinically warranted
--- NOTE | 2025-06-13 23:11 | PD.EDRME ---
Rapid Medical Screening Exam RME Arrival date/time: 06/13/25 22:56 This is a case of 55-year-old male with no medical history came in in the emergency room due to abdominal pain on and off for 3 days associated with nausea vomiting persistence of the symptoms now with black tarry stool thus patient decided to sought consult here in the emergency room Chief Complaint: Abdominal Pain Time Seen by Provider: 06/13/25 22:59 Vital signs: Vital Signs Temperature 98.8 F 06/13/25 23:10 Pulse Rate 100 06/13/25 23:10 Respiratory Rate 18 06/13/25 23:10 Blood Pressure 146/80 H 06/13/25 23:10 Pulse Oximetry (%) 99 06/13/25 23:10 Oxygen Delivery Method Room Air 06/13/25 23:10 Exam: Moderate tenderness on the epigastric area no guarding no rebound no rigidity Clinical Impression: Abdominal pain
[2025-06-13 23:24] LABS: Basophils # (Auto) 0.1 Thou/mm3 (0.0-0.2); Basophils % (Auto) 1 % (0-2.5); Eosinophils # (Auto) 0.1 Thou/mm3 (0.0-0.5); Eosinophils % (Auto) 1 % (0-10); Hematocrit 30.3 % (41.0-53.0); Hemoglobin 10.2 g/dL (13.5-16.0); Immature Granulocytes Auto 0.03 Thou/mm3 (0.00-0.00); Lymphocytes # (Auto) 1.6 Thou/mm3 (1.0-4.8); Lymphocytes % (Auto) 19 % (10-50); Mean Corpuscular HGB Conc 33.7 g/dl (31.0-37.0); Mean Corpuscular Hemoglobin 29.3 pg (25.0-35.0); Mean Corpuscular Volume 87 fL (80-100); Monocytes # (Auto) 0.7 Thou/mm3 (0.0-0.8); Monocytes % (Auto) 8 % (0-12); Neutrophils # (Auto) 5.8 Thou/mm3 (1.8-7.7); Neutrophils % (Auto) 71 % (37-80); Nucleated Red Blood Cell # 0.00 Thou/mm3 (0.00-0.00); Nucleated Red Blood Cell % 0 /100 WBC (0); Platelet Count 129 Thou/mm3 (140-440); RDW Standard Deviation 60.2 fL (35.1-43.9); Red Blood Count 3.48 Miln/mm3 (4.50-5.90); White Blood Count 8.3 Thou/mm3 (3.8-10.6)
[2025-06-13 23:42] LABS: Alanine Aminotransferase 25 U/L (10-49); Albumin, Serum 3.7 gm/dL (3.5-5.0); Albumin/Globulin Ratio 1.0 (1.2-2.2); Alkaline Phosphatase 67 U/L (46-116); Anion Gap 12 (7-16); Aspartate Amino Transferase 39 U/L (0-34); BUN/Creatinine Ratio 34 Ratio (12-20); Bilirubin,Total 2.8 mg/dL (0.3-1.2); Blood Urea Nitrogen 24 mg/dL (9-23); Calcium 8.8 mg/dL (8.3-10.6); Calcium (Corrected) 9.0 mg/dL (8.5-10.1); Carbon Dioxide 25.5 mMol/L (20.0-31.0); Chloride 104 mMol/L (98-107); Creatinine (Component) 0.7 mg/dL (0.6-1.3); Estimated Creatinine Clearance 112.6 mL/min (>60); Globulin 3.7 gm/dL (2.3-3.5); Glucose 176 mg/dL (74-106); Lipase 28 U/L (12-53); Osmolality,Calculated 289 (275-295); Potassium 4.2 mMol/L (3.4-5.1); Sodium 141 mMol/L (136-145); Total Protein 7.4 gm/dL (5.7-8.2); eGFR > 60 See Note
--- NOTE | 2025-06-13 23:42 | EDNOTE_ITS ---
ED Abdominal Pain RME/HPI General Chief Complaint: Abdominal Pain Stated complaint: ABD PAIN,NAUSEA, DARK STOOL Time seen by provider: 06/13/25 22:59 Arrival date/time: 06/13/25 22:56 Limitations: no limitations RME / HPI RME / HPI narrative: 06/13/25 22:56 This is a case of 55-year-old male with no medical history came in in the emergency room due to abdominal pain on and off for 3 days associated with nausea vomiting persistence of the symptoms now with black tarry stool thus patient decided to sought consult here in the emergency room Dr. [facility] ED Evaluation: 55yo male with a history of esophageal varices, psoriasis, hep C, NIDDM, HTN, hemorrhoids presents to the ED for a chief complaint of abdominal discomfort. Patient reports associated dark stools that started earlier today and he was concerned, so he came in for evaluation. Patient denies any hematemesis, N/V, fever, chills, cough, chest pain, shortness of breath, or any other associated symptoms. NKA. Related Data Home Medications ?Medication ?Instructions ?Recorded ?Confirmed carvedilol 3.125 mg tablet 3.125 mg PO QDAY 01/20/25 0 01/20/25 Previous Rx's ?Medication ?Instructions ?Recorded metformin 750 mg tablet 750 mg PO BIDWMEAL 1 month # 60 tabs 11/27/24 furosemide 20 mg tablet 20 mg PO QDAY 1 month #30 ta bs 12/15/24 spironolactone 25 mg tablet 25 mg PO QDAY 1 month #30 tabs 12/15/24 ferrous sulfate 325 mg (65 mg 325 mg PO QDAY #30 tabs 02/19/25 iron) tablet (Iron (ferrous sulfate)) Allergies Allergy/AdvReac Type Severity Reaction Status Date / Time No Known Allergies Allergy Verified 06/13/25 22:57 Review of Systems Review of Systems Systems Reviewed: All systems reviewed, normal except as documented Past Medical History Past Medical History NEUROLOGIC: Negative Neurological Disorders, Cerebrovascular Accident, Transient Ischemic Attacks (TIA), Dementia, Alzheimer's Disease, Parkinson's Disease, Brain Tumor, Meningitis, Seizures, Epilepsy, Multiple Sclerosis, Cerebral Palsy, Amyotrophic Lateral Sclerosis (ALS/[place]ve Gehrig's), Guillain-Brickeys Syndrome, Spina Bifida, Paralysis, Peripheral Neuropathy, Ortiz's Palsy, Subdural Hematoma, Migraine, Head Trauma, Spinal Cord Injury or Traumatic Brain Injury CARDIAC: Positive Cardiac Disorders and Hypertension; Negative Myocardial Infarction, Cardiac Arrhythmia, Atrial Fibrillation, Angina, Heart Murmur, Coronary Artery Disease, Atherosclerotic Heart Disease, Peripheral Vascular Disease, Hypercholesterolemia, Aneurysm, Congestive Heart Failure, Congenital Heart Disease, Valvular Heart Disease, Rheumatic Fever, Cardiomyopathy, Edema, Pericarditis, Cellulitis, Deep Vein Thrombosis, Hypotension or Varicose Veins RESPIRATORY: Negative Chronic Obstructive Pulmonary Disease (COPD), Asthma, Bronchitis, Emphysema, Pneumonia, Pulmonary Fibrosis, Cystic Fibrosis, Tuberculosis, Pulmonary Embolism, Pulmonary Edema or Sleep Apnea GASTROINTESTINAL: Positive Gastrointestinal Disorders, Hepatitis (hep c, done with tx), Cirrhosis, Gall Bladder Disease (gallstones), Gastrointestinal Bleed, Esophageal Varices and Ulcer; Negative Pancreatitis, Celiac Disease, Hu's Esophagus, Colitis, Ulcerative Colitis, Diverticulitis, Diverticulosis, Colorectal Cancer, Irritable Bowel, Crohn's Disease, Obstructive Bowel, Hiatal Hernia, Hemorrhoids, Gastroesophageal Reflux Disease or Obesity GENITOURINARY: Negative Genitourinary Disorders, Renal Disease, Kidney Stones, Polycystic Kidney Disease, Neurogenic Bladder, Inguinal Hernia, Dialysis, Prost ate Cancer or Benign Prostatic Hyperplasia REPRODUCTIVE: Negative Breast Cancer, Fibroids, Genital Herpes, Gonorrhea, Syphilis or Testicular Cancer MUSCULOSKELETAL: Negative Musculoskeletal Disorders, Muscular Dystrophy, Myasthenia Gravis, Marfan's Syndrome, Bone Cancer, Arthritis, Rheumatoid Arthritis, Osteoporosis, Degenerative Disk Disease, Gout, Scoliosis, Carpal Tunnel Syndrome, Fibromyalgia, Fractures, Degenerative Joint Disease, Osteomyelitis or Poliovirus ENT: Negative Cataracts, Glaucoma, Blind, Retinal Detachment, Macular Degeneration, Ear Infection, Deafness, Head Trauma or Eye Prosthesis ENDOCRINE: Positive Endocrine Disorders and Diabetes Mellitus Type 2; Negative Diabetes Mellitus Type 1, Hypoglycemia, [place]'s Syndrome, [place]'s Disease, Hyperthyroidism, Hypothyroidism, Parathyroid Disease, Pituitary Disease, Systemic Lupus Erythematosus, Syndrome of Inappropriate Antidiuretic Hormone (SIADH), Adrenal Disease or Graves' Disease HEMATOLOGIC: Positive Blood Disorders and Anemia; Negative Leukemia, Hemophilia, Thalassemia, Sickle Cell Disease or Clotting Problems PSYCHO/SOCIAL: Negative Psychiatric Problems, Schizophrenia, Recreational Drug Use, Bipolar Disorder, Depression, Anxiety, Behavior Problems, Self-Mutilation, Attention Deficit Disorder, Attention Deficit Hyperactivity Disorder, Depression, Post Traumatic Stress Disorder or Eating Disorder OTHER HISTORY: Positive Blood Transfusions; Negative Hospitalization, Autoimmune Disease, Down Syndrome, Autism, Developmental Delay, Shingles, Falls, Blood Transfusion Reaction, Anesthesia Reactions, Organ Transplant, Chemotherapy, Radiation Therapy, Hyperbaric Therapy, MRSA, VRSA, Vancomycin-Resistant Enterococci, Human Immunodeficiency Virus (HIV), Chicken Pox, Measles, Mumps, Rubella (Nepali Measles), Pertussis, Clostridium Difficile, Cancer, Breast Cancer, Colorectal Cancer, Lung Cancer, Prostate Cancer or Testicular Cancer Family History FAMILY HISTORY: Positive Family Cardiac Disorders; Negative Family Psychiatric Problems, Family Respiratory Disorders, Family Gastrointestinal Problems, Family Cancer, Family Surgery or Family Anesthesia Reaction Surgical History SURGICAL: Negative Cardiac Surgery, Open Heart Surgery, Coronary Artery Bypass Graft, Valve Replacement, Vascular Surgery, Coronary Stent, Cardiac Catheterization, Pacemaker, Angiogram, Auto Implanted Cardiovert Defib, Carotid Endarterectomy, Endocrine Surgery, Thyroidectomy, Ear Surgery, Tympanostomy Tube, Eye Surgery, Nose Surgery, Oral Surgery, Tonsillectomy, Adenoidectomy, Cochlear Implant, Corneal Transplant, Throat Surgery, Abdominal Surgery, Tracheostomy, Gastric Bypass Surgery, Gastrostomy, Bowel Surgery, Nephrectomy, Transurethral Resection, Joint Replacement, Amputation, Open Reduction Internal Fixation, Arthroscopy, Neurologic Surgery, Mastectomy, Vasectomy or Organ Transplant Social History SMOKING STATUS: Never smoker SECOND HAND EXPOSURE: No SUBSTANCE USE: does not use ED Exam General Limitations: Present no limitations General appearance: Present alert and in no apparent distress Head Head exam: Present atraumatic Eye Eye exam: Present PERRL, EOMI and scleral icterus ENT ENT exam: Present normal exam, normal oropharynx and mucous membranes moist Neck Neck exam: Present normal inspection, full ROM and trachea midline Chest Chest inspection: Present normal inspection and symmetric chest wall rise Respiratory Respiratory exam: Present normal lung sounds bilaterally; Absent respiratory distress Cardiovascular Cardiovascular exam: Present regular rate, normal rhythm and normal heart sounds Abdominal Exam Abdominal exam: Present soft; Absent distention or tenderness Extremities Exam Extremities exam: Present normal inspection and full ROM Neurological Exam Neurological exam: Present alert, oriented X3 and CN II-XII intact Psychiatric Psychiatric exam: Present normal affect and normal mood Skin Skin exam: Present warm, dry, intact and other (jaundice) Course Quality Measures none Orders Category Date Time Status NPO NOW Care 06/13/25 23:49 Active Consult to Gastroenterology Stat Cons 06/13/25 23:48 Ordered Diet NPO (NOW) Diet 06/13/25 23:[address] abdomen pelvis wo con Stat Exams 06/13/25 23:11 Taken CBC Stat Lab 06/13/25 23:17 Completed Comprehensive Metabolic Panel Stat Lab 06/13/25 23:17 Completed INR [Prothrombin Time with INR] Stat Lab 06/13/25 23:17 Completed Lipase Stat Lab 06/13/25 23:17 Completed Type and Screen Stat Lab 06/13/25 23:17 Completed Urinalysis Stat Lab 06/13/25 23:11 Ordered Octreotide Acet Inj [SandoSTATIN Inj] Med 06/13/25 23:48 Discontinued 50 mcg IV X1 ONE Pantoprazole/Ns 80Mg IV Premix [Protonix/NS 80mg IV Med 06/13/25 23:49 Active Premix] 80 mg in 100 ml IV X1 Pantoprazole/Ns 80Mg IV Premix [Protonix/NS 80mg IV Med 06/13/25 23:49 Discontinued Premix] 80 mg in 100 ml IV X1 Sodium Chloride 0.9% [Ns] 100 ml Med 06/13/25 23:48 Active Octreotide Acet Inj [SandoSTATIN Inj] 1,000 mcg IV 50 mcg/hr Vital Signs Vital signs: Vital Signs Temperature 98.8 F 06/13/25 23:10 Pulse Rate 100 06/13/25 23:10 Respiratory Rate 18 06/13/25 23:10 Blood Pressure 146/80 H 06/13/25 23:10 Pulse Oximetry (%) 99 06/13/25 23:10 Oxygen Delivery Method Room Air 06/13/25 23:10 Abdominal Pain MDM MDM Narrative MDM Narrative:: Scribe Attestation: 06/13/25 - Jeana Camacho am scribing for and in the presence of Dr. Chapman. Patient is a 55-year-old male with medical history notable for hepatitis C, treated, complicated by cirrhosis, esophageal varices, esophageal bleeding that send emergency department concerns for 1 episode of melena vital signs and exam as listed. Concern for upper GI bleed from ulcer versus esophageal varices, among others. Also concern for symptomatic anemia or thrombocytopenia. Prior provider ordered labs and CT. I ordered Protonix bolus and drip as well as octreotide bolus and drip. Labs with evidence of hemoglobin 10.2, previously 12. Patient is not hypotensive nor tachycardic at this time although his hemoglobin did drop by 2 points. Has only had 1 episode of melena no other episodes of melena while in the emergency department. Patient does have thrombocytopenia platelets 129, significantly improved from prior. No significant electrolyte abnormalities, patient does have a history of chronic hyperbilirubinemia currently 2.8 this is within the range of patient's priors. Patient blood type is a positive. Patient remained hemodynamically stable in the emergency department. I discussed case with admitting hospitalist, kindly excepted patient for admission Patient data External records reviewed:: [facility] previous records (Per chart review, patient was seen here on 02/08/25 for hemorrhoids.) Clinical information provided by:: patient Social determinants that could affect healthcare access:: none Patient has the following chronic illnesses:: esophageal varices, psoriasis, hep C, NIDDM, HTN, hemorrhoids How is presenting disease/condition affected by chronic disease/condition?: exacerbated by Evaluation data The following diagnostics were reviewed and interpreted by me:: lab results and radiology exam(s) Lab and/or radiology exams considered but not ordered:: none Interpretation Summary: See MDM Medications / Prescriptions Medications or Prescriptions considered but not ordered:: none Medication administrations:: Medication Administration History Octreotide Acetate 1,000 mcg/ (Sodium Chloride) 102 mls @ 5.1 mls/hr IV .Q20H ONE; Protocol Stop: 06/14/25 19:47 Last Admin: 06/14/25 00:20 Dose: 50 mcg/hr, 5.1 mls/hr Documented By: BARRON Pantoprazole Sodium (Protonix/Ns 80mg Iv Premix) 80 mg in 100 mls @ 10 mls/hr IV X1 ONE Stop: 06/14/25 09:48 Last Admin: 06/14/25 00:21 Dose: 10 mls/hr Documented By: BARRON Discontinued Medications Pantoprazole Sodium (Protonix/Ns 80mg Iv Premix) 80 mg in 100 mls @ 400 mls/hr IV X1 ONE Stop: 06/14/25 00:03 Last Infusion: 06/14/25 00:41 Dose: Infused Documented By: Admin: 06/14/25 00:21 Dose: 400 mls/hr Documented By: BARRON Octreotide Acetate (Octreotide Acet Inj 50 Mcg/Ml Vial) 50 mcg IV X1 ONE Stop: 06/13/25 23:49 Last Admin: 06/14/25 00:19 Dose: 50 mcg Documented By: BARRON see above Consultations Consultation(s) initiated? (list below): Yes Consultation #1 (Physician, Specialty, Details): Discussed case with the resident physician, attending Dr. Rodriguez from Hospitalist service regarding admission. Discussed patients ED course, exam findings, labs, and radiology results. The Hospitalist agrees to accept the patient for admission. Time: 00:55 Diagnosis Differential diagnosis abdominal pain: other (GI bleed, Lora-Gomez tear, esophageal varices, GERD, gastritis) Most likely diagnosis given after review of the tests above:: see clinical impression below Admission Indicated Admission indicated?: indicated Admission Request Was there a request for admission?: Yes Admission Attestation Admission request attestation: Discussed case with Hospitalist service regarding admission. Discussed patients ED course, exam findings, labs, and radiology results. The Hospitalist [agrees,declines] to accept the patient for admission. Disposition Plan Disposition Plan: Admit Critical Care Time Critical Care Time Critical Care Time: Yes Total Critical Care Time (min.): 36 Attestation: Due to a high probability of clinically significant, life threatening deterioration, the patient required my highest level of preparedness to intervene emergently and I personally spent this critical care time directly and personally managing the patient. This critical care time included obtaining a history; examining the patient; pulse oximetry; ordering and review of studies; arranging urgent treatment with development of a management plan; evaluation of patient's response to treatment; frequent reassessment; and, discussions with other providers. This critical care time was performed to assess and manage the high probability of imminent, life-threatening deterioration that could result in multi-organ failure. It was exclusive of separately billable procedures and treating other patients and teaching time. Please see MDM section and the rest of the note for further information on patient assessment and treatment. Discharge Plan Plan Patient Disposition: Admit Acute Care w/in Hospital Prescriptions/Referrals Prescriptions/Med Rec: No Action furosemide 20 mg tablet 20 mg PO QDAY 30 Days Qty: 30 3RF spironolactone 25 mg tablet 25 mg PO QDAY 30 Days Qty: 30 3RF ferrous sulfate [Iron (ferrous sulfate)] 325 mg (65 mg iron) tablet 325 mg PO QDAY Qty: 30 5RF metformin 750 mg tablet 750 mg PO BIDWMEAL 30 Days Qty: 60 3RF carvedilol 3.125 mg tablet 3.125 mg PO QDAY Referrals: No Primary/Family,Physician [Primary Care Provider] - In 1 week Problem List Clinical Impression: Melena, Esophageal varices, Anemia, Cirrhosis Patient/Caregiver Discharge Instructions Print Language: Turkmen Stand Alone Forms: Karla Award Info., Patient Portal Info Letter
[2025-06-13 23:49] VITALS: BP 136/72; PULSE 98; RESP 17; TEMP 36.8; O2SAT 98
[2025-06-14] VITALS (18 sets, daily range): BP systolic 106–149; BP diastolic 57–85; PULSE 65–128; RESP 10–97; TEMP 36.4–36.7; O2SAT 94–100; BMI 21.9
[2025-06-14 00:06] LABS: INR 1.4 (0.9-1.3); Prothrombin Time 14.2 Seconds (9.0-12.2)
[2025-06-14] MEDS: OCTREOTIDE ACET INJ 50 mCg/ML VIAL IV (00:19)
[2025-06-14] MEDS: OCTREOTIDE ACET INJ 1,000 MCG in SODIUM CHLORIDE 0.9% 100 ML 5.1 MCG IV ×2 (00:20→21:35)
[2025-06-14] MEDS: PANTOPRAZOLE/NS 80MG IV PREMIX 80 MG/100 ML BAG 10 MG IV (00:21)
[2025-06-14] MEDS: PANTOPRAZOLE/NS 80MG IV PREMIX 80 MG/100 ML BAG 400 MG IV (00:21)
--- NOTE | 2025-06-14 01:27 | PRELIM_ITS ---
CT scan of the abdomen and pelvis without intravenous contrast (axial sections with sagittal and coronal reformats) June 14, 2025 0008 hours Clinical History: Abdominal pain. Comparison: None available at the time of this report. Findings: The lung bases are clear. The pancreas, kidneys and adrenals are unremarkable on this noncontrast study. Irregular liver margins. Splenomegaly with craniocaudal diameter of 18.8 cm. Gallstones. Prominent gallbladder wall. No evidence of bowel obstruction. No evidence of appendicitis. Mild thickening of the sigmoid colon wall. There is no mesenteric or retroperitoneal adenopathy. The urinary bladder is unremarkable. There is no free air. Small ascites. The osseous structures are unremarkable. Impression: 1. Cirrhosis associated with splenomegaly and ascites. 2. Gallstones and prominent gallbladder wall, if acute cholecystitis is clinically suspected consider correlation with right upper quadrant ultrasound. 3. Mild thickening of the sigmoid colon wall. 4. Possible mild sigmoiditis. Report Electronically Signed By: Andrae Tidwell 06/14/2025 1:26:44 AM [EST]
--- NOTE | 2025-06-14 02:00 | ESHP_ITS ---
<Statement entered by Curt Razo MD - 06/14/25 06:23> A 55-year-old male with significant past medical history of cirrhosis diagnosed in at least 2017 per chart review, history of remote hepatitis C almost 24 years ago and was treated, diabetes mellitus, recurrent episodes of esophageal varices status post banding, recent banding was done in October 2024, follows with Dr. Henry and last visit is 3 months ago per patient presented to the hospital with chief complaints of abdominal pain, discomfort, decreased appetite since 2 days and 1 episode of black tarry stool on the day of admission. Denies any other associated symptoms. Vitals are stable. Physical examination remains unremarkable. Labs at the time of admission showed hemoglobin of 10.2, INR 1.4, BUN 24, creatinine 0.7. Abdomen/pelvis CT showed cirrhosis associated with splenomegaly and ascites. Gallstones and prominent gallbladder wall. Was given a bolus of LR and started on maintenance fluid 100 mL/h. Consulted cannot obiee report developer Dr. Henry and will appreciate his recommendations. A dose of pantoprazole 80 mg is given in the ED, started on octreotide drip and pantoprazole 40 mg twice daily. Will continue to monitor vitals. # Melena, likely upper GI bleed # Likely esophageal varices secondary to cirrhosis I have personally seen and examined the patient, agree with residents assessment and plan Patient plan of care was discussed with the attending physician, Dr. 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 Patient was admitted for management of GI bleed. The patient noted a discomfort in his abdomen that started about 2 to 3 days ago, however what brought the patient in was a dark tarry bowel movement earlier that day on 06/13. The patient denies any pain with that bowel movement and notes that his normal bowel movements are not as dark as that even though he does take ferrous sulfate every other day. The patient is well-known to obiee report developer Dr. Henry and has most recently been admitted back in 11/24/2024 for a GI bleed resulting in hematemesis, which was attributed to the patient's grade 2 esophageal varices that were banded. Previous colonoscopy performed on 01/20/2025 showed grade 4 internal hemorrhoids. The patient does have a history of cirrhosis, thought to be secondary to hepatitis C, to which the patient stated that he got infected by via a needlestick injury from work. The patient has completed a course of antiretrovirals to treat the hepatitis C, but remains cirrhotic. During examination, the patient noted that he would prefer not to be admitted as he is still paying off the medical bill from his previous hospitalization. After discussing the risks and benefits to the patient regarding hospitalization, the patient decided to stay for hospital admission. The patient denies any fever, headache, chills, vision changes, shortness of breath, chest pain, abdominal pain, and dysuria. ED course: Initial vitals significant for BP 146/80. Initial labs significant for hemoglobin 10.2, platelets 129, PT 14.2, INR 1.4, BUN 24, total bilirubin 2.8 and AST 39. Preliminary read of CT abdomen/pelvis suggest cirrhosis with splenomegaly and gallstones with a prominent gallbladder wall. Patient was started on Protonix and octreotide drip. GI consulted, patient made n.p.o. 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 Skin: Warm, dry, intact. Head: Normocephalic, atraumatic. Eye: Slightly icteric conjunctiva, PERRL. Throat: Oral mucosa dry. No obvious lesions in oropharynx. Cardiovascular: Tachycardic rate and regular rhythm, no murmur, +S1/S2. Respiratory: Lungs are clear to auscultation, respirations unlabored, no crackles, no wheezing. Gastrointestinal: Soft, nontender, non-distended. No guarding or rebound tenderness. Extremities: No edema, no cyanosis, no clubbing. 2+ radial pulse bilaterally, 2+ pedal pulse bilaterally. Scaled plaques on elbows and knees bilaterally. Neuro: No focal deficits observed. Conversant, moving all extremities. No overt cerebellar signs/incoordination. Psychiatric: Cooperative, flat affect. Results: Labs 06/14/25 02:31 06/14/25 02:31 Labs: Short CBC 06/13/25 Range/Units 23:17 WBC 8.3 (3.8-10.6) Thou/mm3 Hgb 10.2 L (13.5-16.0) g/dL Hct 30.3 L (41.0-53.0) % Plt Count 129 L D (140-440) Thou/mm3 BMP 06/13/25 23:17 Sodium 141 Potassium 4.2 Chloride 104 Carbon Dioxide 25.5 BUN 24 H Creatinine 0.7 Glucose 176 H Calcium 8.8 Liver Function 06/13/25 Range/Units 23:17 Total Bilirubin 2.8 H (0.3-1.2) mg/dL AST 39 H (0-34) U/L ALT 25 (10-49) U/L Alkaline Phosphatase 67 (46-116) U/L Albumin 3.7 (3.5-5.0) gm/dL Quality Measures Quality Measures VTE prophylaxis Medications Home Medications and Allergies Home Medications ?Medication ?Instructions ?Recorded ?Confirmed ?Type carvedilol 3.125 mg tablet 3.125 mg PO QDAY 01/20/25 1 08/15/24 History metformin 750 mg tablet 1,000 mg PO BIDWMEAL 5 06/14/25 History ondansetron HCl 8 mg tablet 8 mg PO Q12H PRN nausea an d 06/14/25 06/14/25 History vomiting Allergies Allergy/AdvReac Type Severity Reaction Status Date / Time No Known Allergies Allergy Verified 06/13/25 22:57 Visit Medications Octreotide Acetate 1,000 mcg/ (Sodium Chloride) 102 mls @ 5.1 mls/hr IV .Q20H ONE; Protocol Stop: 06/14/25 19:47 Last Admin: 06/14/25 00:20 Dose: 50 mcg/hr, 5.1 mls/hr Pantoprazole Sodium (Protonix/Ns 80mg Iv Premix) 80 mg in 100 mls @ 10 mls/hr IV X1 ONE Stop: 06/14/25 09:48 Last Admin: 06/14/25 00:21 Dose: 10 mls/hr Discontinued Medications Pantoprazole Sodium (Protonix/Ns 80mg Iv Premix) 80 mg in 100 mls @ 400 mls/hr IV X1 ONE Stop: 06/14/25 00:03 Last Infusion: 06/14/25 00:41 Dose: Infused Octreotide Acetate (Octreotide Acet Inj 50 Mcg/Ml Vial) 50 mcg IV X1 ONE Stop: 06/13/25 23:49 Last Admin: 06/14/25 00:19 Dose: 50 mcg Assessment & Plan Plan This man is a 55-year-old male with a history of cirrhosis secondary to hepatitis C infection, esophageal varices, psoriasis, gsa-vkhtjff-qxahchrkq type 2 diabetes mellitus, hemorrhoids, and hypertension who presented to [facility] ED on 06/13 for black tarry stool. Patient was admitted for management of GI bleed. #GI bleed, likely upper versus lower #Liver cirrhosis 2/2 #History of hepatitis C, treated #Esophageal varices, status post banding #Internal hemorrhoids, grade 4, status post banding #Multiple nonenhancing liver lesions Patient is noted to have a history of liver cirrhosis secondary to hepatitis C infection from needlestick injury. Hepatitis C has been successfully treated, but patient's liver cirrhosis has resulted in esophageal varices that has previously needed to be banded. Patient now presents with dark tarry stool episode x 1. Diagnostic: Hemoglobin on admission 10.2, previous hemoglobin 12.4 on 05/31, but baseline hemoglobin appears to be 8-9 CT abdomen/pelvis preliminary read identifies liver cirrhosis with splenomegaly, pending official report Endoscopy on 11/17/2024 shows grade 2 esophageal varices that were completely eradicated via banding and erythematous mucosa in stomach Colonoscopy on 01/20/2025 shows hemorrhoids on perianal exam with large sessile polyp in the descending colon, and internal hemorrhoids grade 4 status post banding MRI abdomen on 11/24/2024 shows multiple relatively nonenhancing liver lesions, follow-up CT guided biopsy pathology report shows grade 2 portal activity and negative for malignancy Child-Ng score 6 points, class A?life expectancy 15 to 20 years and abdominal surgery perioperative mortality 10% MELD sodium score 14 points, 6% estimated 3-month mortality Patient noted to be hepatitis C antibody reactive on 03/14/2017 with genotype 1a identified on 04/26/2017, all subsequent PCR RNA undetectable Treatment: GI consulted, appreciate recommendations Protonix 40 mg twice daily Octreotide drip (06/14?) Ceftriaxone 1 g daily (06/14?) Patient made n.p.o. for possible procedure Consider resuming home furosemide, spironolactone, and carvedilol after possible endoscopy #Gallstones As noted on CT abdomen/pelvis, pending official read. Patient did complain of abdominal discomfort, but pain was not appreciated on initial examination for admission. Overall low suspicion for acute cholecystitis. Diagnostic: CT abdomen/pelvis on 06/14 shows gallstones with prominent gallbladder wall Treatment: Will continue to monitor Pain control with morphine 1 mg every 6 hours as needed Nausea/vomiting management with Zofran as needed If patient condition declines or if abdominal pain worsens, will consider liver ultrasound for further evaluation #Anemia, normocytic #History of iron deficiency anemia Patient noted to have hemoglobin of 10.7 on admission, with previous hemoglobin being 7.4 on 05/31, however the patient's baseline hemoglobin appears to be around 8-9. Patient does have a history of iron deficiency anemia and has been previously prescribed ferrous sulfate for management. Treatment: Patient to follow-up outpatient Manage underlying GI bleed #Lactic acidosis Lactic acid noted to be 3.8 on admission. Patient may have poor lactic acid clearance due to cirrhosis. Treatment: IV fluid resuscitation Will continue to monitor lactic acid until within normal limits #Coagulopathy PT and INR noted to be elevated on admission, likely secondary to liver cirrhosis resulting in decreased clotting factor production. Treatment: Patient to follow up outpatient #Njo-chdwylj-mggwqpyps type 2 diabetes mellitus Patient has a history of diabetes to which the patient states that he does not take insulin for. Patient is not sure what medications he is on. Treatment: Sliding scale insulin Bedside glucose checks every 6 hours due to patient being n.p.o. currently Hemoglobin A1c ordered, pending #Psoriasis #Hypertension Patient does have a history of psoriasis and hypertension. Treatment: Will hold off on resuming any antihypertensive until GI bleed resolved. Patient does not know what medications he is on for there is psoriasis. DVT Prophylaxis: SCDs GI Prophylaxis: Protonix Bowel: N/A Diet: NPO Carrillo: N/A Lines: PIV Antibiotics: Ceftriaxone Code Status: FULL Reason for Hospitalization: GI bleed Other Barriers to Discharge: GI consult Patient plan of care was discussed with the senior resident Dr. Razo (PGY-2) and attending physician Dr. Michael Espinal, PGY1 Attending Provider Attestation/Addendum After examination of the patient and review of the clinical data I feel that this patient needs admission to the hospital for further treatment/evaluation. Plan of care discussed with patient and is in agreement. I Pipo Rodriguez MD, attest that I was physically present for rocha portions of evaluation, and examined patient, labs and imagings and plan of care were discussed with IM residents team, and I agree with the findings and plans documented above.
[2025-06-14] MEDS: ONDANSETRON INJ 2 MG/ML INJ 2 ML 4 MG IVP (02:41)
[2025-06-14] MEDS: MORPHINE SULF INJ 4 MG/ML VIAL 1 MG IVP (02:41)
[2025-06-14] MEDS: cefTRIAXone/D5w 1gm IV premix 1 GM/50 ML BAG IV ×2 (02:42→21:08)
[2025-06-14 02:57] LABS: Lactate (Lactic Acid) 3.8 mMol/L (0.4-2.0)
[2025-06-14 02:59] LABS: Basophils # (Auto) 0.0 Thou/mm3 (0.0-0.2); Basophils % (Auto) 1 % (0-2.5); Eosinophils # (Auto) 0.1 Thou/mm3 (0.0-0.5); Eosinophils % (Auto) 1 % (0-10); Hematocrit 26.9 % (41.0-53.0); Hemoglobin 9.1 g/dL (13.5-16.0); Immature Granulocytes Auto 0.02 Thou/mm3 (0.00-0.00); Lymphocytes # (Auto) 1.3 Thou/mm3 (1.0-4.8); Lymphocytes % (Auto) 21 % (10-50); Mean Corpuscular HGB Conc 33.8 g/dl (31.0-37.0); Mean Corpuscular Hemoglobin 29.8 pg (25.0-35.0); Mean Corpuscular Volume 88 fL (80-100); Monocytes # (Auto) 0.5 Thou/mm3 (0.0-0.8); Monocytes % (Auto) 9 % (0-12); Neutrophils # (Auto) 4.3 Thou/mm3 (1.8-7.7); Neutrophils % (Auto) 69 % (37-80); Nucleated Red Blood Cell # 0.00 Thou/mm3 (0.00-0.00); Nucleated Red Blood Cell % 0 /100 WBC (0); RDW Standard Deviation 61.5 fL (35.1-43.9); Red Blood Count 3.05 Miln/mm3 (4.50-5.90); White Blood Count 6.2 Thou/mm3 (3.8-10.6)
[2025-06-14 03:04] LABS: Platelet Count 73 Thou/mm3 (140-440); Slide Review Platelets confirmed
[2025-06-14 03:18] LABS: Alanine Aminotransferase 23 U/L (10-49); Albumin, Serum 3.4 gm/dL (3.5-5.0); Albumin/Globulin Ratio 1.0 (1.2-2.2); Alkaline Phosphatase 62 U/L (46-116); Anion Gap 12 (7-16); Aspartate Amino Transferase 36 U/L (0-34); BUN/Creatinine Ratio 30 Ratio (12-20); Bilirubin,Total 2.5 mg/dL (0.3-1.2); Blood Urea Nitrogen 18 mg/dL (9-23); Calcium 8.5 mg/dL (8.3-10.6); Calcium (Corrected) 9.0 mg/dL (8.5-10.1); Carbon Dioxide 22.6 mMol/L (20.0-31.0); Chloride 106 mMol/L (98-107); Creatinine (Component) 0.6 mg/dL (0.6-1.3); Estimated Creatinine Clearance 131.4 mL/min (>60); Globulin 3.5 gm/dL (2.3-3.5); Glucose 142 mg/dL (74-106); Osmolality,Calculated 285 (275-295); Potassium 4.0 mMol/L (3.4-5.1); Sodium 141 mMol/L (136-145); Total Protein 6.9 gm/dL (5.7-8.2); eGFR > 60 See Note
[2025-06-14 03:19] LABS: Glucose Estimated Average 160 mg/dL (80-131); Hemoglobin A1C 7.2 % Hgb (4.8-6.0)
[2025-06-14] MEDS: RINGERS LACTATED 1000 ML 1,000 ML 999 ML IV (03:38)
[2025-06-14 03:53] LABS: Collection Type, Urine Clean Catch; Squamous Epithelial Cell,Urine 0 /hpf (0-5)
[2025-06-14 03:58] LABS: Bilirubin,Urine Negative (Negative); Blood,Urine Negative (Negative); Clarity,Urine Clear (Clear/Hazy); Color,Urine Yellow (Lt Yel-Yel); Glucose, Urine 1+ (Negative); Ketones,Urine 2+ (Negative); Leukocyte Esterase,Urine Negative (Negative); Nitrite,Urine Negative (Negative); PH,Urine 6.0 (5.0-7.0); Protein,Urine 1+ (Neg - Trace); RBC,Urine 6 /hpf (0-3); Specific Gravity,Urine 1.039 (1.001-1.035); Urobilinogen,Urine Negative mg/dL (0.0-1.0); WBC,Urine 2 /hpf (0-5)
[2025-06-14] MEDS: RINGERS LACTATED 1000 ML 1,000 ML 100 ML IV (04:45)
[2025-06-14 05:53] LABS: Reflex Lactate? Y
[2025-06-14 07:31] LABS: Lactic Acid, 3 HR 2.7 mMol/L (0.4-2.0)
--- NOTE | 2025-06-14 12:06 | ESPR_ITS ---
<Statement entered by Marquez Hinojosa MD - 06/14/25 13:45> Overnight admission for GI bleed. Seen and examined at bedside and patient resting comfortably in bed. Does not have any complaints at this time. Vital signs stable as he is on room air and afebrile. CBC shows slight downtrend in hemoglobin from 10.2 to 9.1. CHEM panel showing downtrending lactic acid, downtrending T. bili and AST. Will continue ceftriaxone, octreotide drip, and PPI. GI following, patient n.p.o., pending EGD. ----- Note reviewed and agree with care plan as documented. Please refer to the note below for further details. Plan discussed with attending physician Dr. Patrizia Hinojosa MD PGY-2 Internal Medicine Documentation for date of: 06/14/25 Subjective Subjective Interval history: Overnight admitted for GI bleed, 1 day of melena. Patient seen and examined at bedside, reports fatigue however denies lightheadedness, headache, chest pain, nausea, vomiting and abdominal pain. Vital stable. Labs reviewed and noted downtrending hemoglobin 9.1, hematocrit 26.9 with platelets downtrending from 129 to 73. Lactic acidosis improved from 3.8- 2-2.7. GI is consulted. Started on octreotide drip and Protonix. Patient is n.p.o., and EGD planned for tonight. Exam Vital Signs Temp Pulse Resp BP Pulse Ox O2 Del Method 97.5 F 74 17 106/57 L 98 Room Air 06/14/25 08:00 06/14/25 08:00 06/14/25 08:00 06/14/25 08:00 06/14/25 08:00 06/14/25 08:00 Narrative Exam General: Alert, no acute distress.Temporal wasting Skin: Warm, dry, intact. No rash or ecchymoses. Scaled plaques on elbows and knees bilaterally. Head: Normocephalic, atraumatic. Eye: Slightly icteric conjunctiva, PERRL. Throat: Oral mucosa dry. No obvious lesions in oropharynx. Cardiovascular: Regular rate and rhythm, no murmur, +S1/S2. Respiratory: Lungs are clear to auscultation, respirations unlabored, no crackles, no wheezing. Gastrointestinal: Soft, nontender, non-distended. No guarding or rebound tenderness. Extremities: No edema, no cyanosis, no clubbing. Neuro: Alert and oriented x3.No focal deficits observed. Conversant, moving all extremities. No overt cerebellar signs/incoordination. Psychiatric: Cooperative, appropriate affect Objective Labs 06/17/25 04:19 06/17/25 04:19 Labs: Laboratory Results - last 24 hr 06/13/25 06/14/25 06/14/25 23:17 02:31 03:00 WBC 8.3 6.2 RBC 3.48 L 3.05 L Hgb 10.2 L 9.1 L Hct 30.3 L 26.9 L MCV 87 88 MCH 29.3 29.8 MCHC 33.7 33.8 RDW Std Deviation 60.2 H 61.5 H Plt Count 129 L D 73 L D Neut % (Auto) 71 69 Lymph % (Auto) 19 21 [place] % (Auto) 8 9 Eos % (Auto) 1 1 Baso % (Auto) 1 1 Neut # (Auto) 5.8 4.3 Lymph # (Auto) 1.6 1.3 [place] # (Auto) 0.7 0.5 Eos # (Auto) 0.1 0.1 Baso # (Auto) 0.1 0.0 Immature Gran # (Auto) 0.03 H 0.02 H Absolute Nucleated RBC 0.00 0.00 Immature Gran % 0 0 Nucleated RBC % 0 0 PT 14.2 H INR 1.4 H Sodium 141 141 Potassium 4.2 4.0 Chloride 104 106 Carbon Dioxide 25.5 22.6 Anion Gap 12 12 BUN 24 H 18 Creatinine 0.7 0.6 Estim Creat Clear Calc 112.6 131.4 eGFR > 60 > 60 BUN/Creatinine Ratio 34 H 30 H Glucose [address] Glu mg/dL 160 H Hemoglobin A1c 7.2 H Calculated Osmolality 289 285 Lactic Acid 3.8 H Calcium 8.8 8.5 Corrected Calcium 9.0 9.0 Total Bilirubin 2.8 H 2.5 H AST 39 H 36 H ALT 25 23 Alkaline Phosphatase 67 62 Total Protein 7.4 6.9 Albumin 3.7 3.4 L Globulin 3.7 H 3.5 Albumin/Globulin Ratio 1.0 L 1.0 L Lipase 28 Ur Collection Type Clean Catch Urine Color Yellow Urine Clarity Clear Urine pH 6.0 Ur Specific [place] 1.039 H Urine Protein 1+ A Urine Glucose (UA) 1+ A Urine Ketones 2+ A Urine Blood Negative Urine Nitrite Negative Urine Bilirubin Negative Urine Urobilinogen (Auto) Negative Ur Leukocyte Esterase Negative Urine RBC 6 H Urine WBC 2 Ur Squamous Epith Cells 0 Urine Bacteria None Misc Test Result Platelets confirmed Blood Type O Positive Antibody Screen NEGATIVE Blood Bank Wristband ID Yes 06/14/25 07:23 WBC RBC Hgb Hct MCV MCH MCHC RDW Std Deviation Plt Count Neut % (Auto) Lymph % (Auto) [place] % (Auto) Eos % (Auto) Baso % (Auto) Neut # (Auto) Lymph # (Auto) [place] # (Auto) Eos # (Auto) Baso # (Auto) Immature Gran # (Auto) Absolute Nucleated RBC Immature Gran % Nucleated RBC % PT INR Sodium Potassium Chloride Carbon Dioxide Anion Gap BUN Creatinine Estim Creat Clear Calc eGFR BUN/Creatinine Ratio Glucose Estimated Ave Glu mg/dL Hemoglobin A1c Calculated Osmolality Lactic Acid 2.7 H Calcium Corrected Calcium Total Bilirubin AST ALT Alkaline Phosphatase Total Protein Albumin Globulin Albumin/Globulin Ratio Lipase Ur Collection Type Urine Color Urine Clarity Urine pH Ur Specific [place] Urine Protein Urine Glucose (UA) Urine Ketones Urine Blood Urine Nitrite Urine Bilirubin Urine Urobilinogen (Auto) Ur Leukocyte Esterase Urine RBC Urine WBC Ur Squamous Epith Cells Urine Bacteria Misc Test Result Blood Type Antibody Screen Blood Bank Wristband ID Quality Measures Quality Measures VTE prophylaxis Assessment & Plan Assessment Current Active Medications: Generic Name Dose Route Start Last Admin Trade Name Freq PRN Reason Stop Dose Admin Acetaminophen 650 mg 06/14/25 02:02 Acetaminophen 325 Mg Tablet PO 07/14/25 02:01 Q6H PRN Fever >101.5 or pain 1-3 Dextrose 25 ml 06/14/25 02:05 Dextrose 50%-Water Inj 50 Ml Syringe IV 07/14/25 02:04 Q15MIN PRN BG 50-70 responsive npo pt Dextrose 50 ml 06/14/25 02:05 Dextrose 50%-Water Inj 50 Ml Syringe IV 07/14/25 02:04 Q15MIN PRN BG <50 OR BG <70 & pt unresponsive Glucagon 1 mg 06/14/25 02:05 Glucagon Inj 1 Mg Vial IM Q15MIN PRN BG <70, and no IV access Octreotide Acetate 1,000 mcg/ 102 mls @ 5.1 mls/hr 06/13/25 23:48 12/15/25 00:20 Sodium Chloride IV 06/14/25 19:47 50 mcg/hr .Q20H ONE 5.1 mls/hr Protocol Administration 50 MCG/HR Ceftriaxone Sodium/Dextrose 1 gm in 50 mls @ 100 mls/hr 06/14/25 21:00 Rocephin/D5w 1gm Iv Premix IV 06/21/25 20:59 HS ADARSH Lactated Ringer's 1,000 mls @ 100 mls/hr 06/14/25 02:42 06/14/25 04:45 Lactated Ringers IV 06/14/25 12:41 100 mls/hr .Q10H ADARSH Administration Insulin Human Lispro 0 unit 06/14/25 12:00 Insulin Lispro (Admelog) 1 Unit/0.01 Ml Unit SC 07/14/25 11:59 Q6HR ADARSH Protocol Morphine Sulfate 1 mg 06/14/25 02:29 06/14/25 02:41 Morphine Sulf Inj 4 Mg/Ml Vial IVP 06/19/25 02:28 1 mg Q6H PRN Administration BREAKTHROUGH PAIN Ondansetron HCl 4 mg 06/14/25 02:02 Ondansetron Inj 2 Mg/Ml Inj 2 Ml IVP 07/14/25 02:01 Q6H PRN NAUSEA OR VOMITING Protocol Pantoprazole Sodium 40 mg 06/14/25 21:00 Pantoprazole Inj 40 Mg Vial IVP 07/14/25 20:59 BID ADARSH Plan Patient 55-year-old male with a history of 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 Patient was admitted for management of GI bleed. #GI bleed, likely upper versus lower #Liver cirrhosis 2/2 #History of hepatitis C, treated #Graded II Esophageal varices, status post banding #Internal hemorrhoids, grade 4, status post banding #Multiple nonenhancing liver lesions Patient is noted to have a history of liver cirrhosis secondary to hepatitis C infection from needlestick injury. Hepatitis C has been successfully treated, but patient's liver cirrhosis has resulted in esophageal varices that has previously needed to be banded. Patient now presents with dark tarry stool episode x 1. - Hemoglobin on admission 10.2, previous hemoglobin 12.4 on 05/31, but baseline hemoglobin appears to be 8-9 - CT abdomen/pelvis preliminary read identifies liver cirrhosis with splenomegaly, pending official report Endoscopy on 11/17/2024 shows grade 2 esophageal varices that were completely eradicated via banding and erythematous mucosa in stomach - Colonoscopy on 01/20/2025 shows hemorrhoids on perianal exam with large sessile polyp in the descending colon, and internal hemorrhoids grade 4 status post banding - MRI abdomen on 11/24/2024 shows multiple relatively nonenhancing liver lesions, follow-up CT guided biopsy pathology report shows grade 2 portal activity and negative for malignancy -Child-Ng score 6 points, class A?life expectancy 15 to 20 years and abdominal surgery perioperative mortality 10% MELD sodium score 14 points, 6% estimated 3-month mortality [place] Bleeding Score 9 points high risk for GI bleed likely to require ?medical intervention?: transfusion, endoscopy, or surgery. Plan: - GI consulted, appreciate recommendations- EGD tonight - Protonix 40 mg twice daily - Octreotide drip (06/14?) - Ceftriaxone 1 g daily (06/14?) - Patient made n.p.o. for possible procedure - Resume home furosemide, spironolactone, and carvedilol after endoscopy #Multiple nonenhancing liver lesions #Multiple hepatic lesions, likely metastatic process? DDX: multifocal primary hepatocellular carcinoma vs hepatic metastases Upon physical examinations patient looks cachectic, noted temporal wasting and anicteric conjunctiva. Due prior Hepatitis C and cirrhotic liver patient has high risk for HCC - 11/24/2024: MRI abdomen shows multiple relatively nonenhancing liver lesions, follow-up CT guided biopsy pathology report shows grade 2 portal activity, and negative for malignancy. - Patient noted to be hepatitis C antibody reactive on 03/14/2017 with genotype 1a identified on 04/26/2017, all subsequent PCR RNA undetectable Tumor markers were negative on last admission Child-Ng score 6 points, class A?life expectancy 15 to 20 years and abdominal surgery perioperative mortality 10% MELD sodium score 14 points, 6% estimated 3-month mortality Plan - AFP orderer, pending #Gallstones As noted on CT abdomen/pelvis, pending official read. Patient did complain of abdominal discomfort, but pain was not appreciated on initial examination for admission. Overall low suspicion for acute cholecystitis. CT abdomen/pelvis on 06/14 shows gallstones with prominent gallbladder wall Plan: - Will continue to monitor - Pain control with morphine 1 mg every 6 hours as needed - Nausea/vomiting management with Zofran as needed - If patient condition declines or if abdominal pain worsens, will consider liver ultrasound for further evaluation #Anemia, normocytic #History of iron deficiency anemia Patient noted to have hemoglobin of 10.7 on admission, with previous hemoglobin being 7.4 on 05/31, however the patient's baseline hemoglobin appears to be around 8-9. Patient does have a history of iron deficiency anemia and has been previously prescribed ferrous sulfate for management. Plan - Patient to follow-up outpatient - Manage underlying GI bleed #Lactic acidosis (resolving) Lactic acid noted to be 3.8 on admission. Patient may have poor lactic acid clearance due to cirrhosis. Plan - IV fluid resuscitation - Will continue to monitor lactic acid until within normal limits #Coagulopathy PT and INR noted to be elevated on admission, likely secondary to liver cirrhosis resulting in decreased clotting factor production. Plan -Patient to follow up outpatient #Bwr-qohyqor-zpdbtrznf type 2 diabetes mellitus Patient has a history of diabetes to which the patient states that he does not take insulin for. Patient is not sure what medications he is on. - A1c 7.2 Plan -Sliding scale insulin - Bedside glucose checks every 6 hours due to patient being n.p.o. currently - Diabetic education #Psoriasis Patient does have a history of psoriasis. Patient does not know what medications he is on for there is psoriasis. Per [facility] review pt was on risankizumab for psoriasis - Continue follow up outpatient #Hypertension Patient does have a history of and hypertension. On Coreg 3.125mg for hypertension/esophageal varices prophylaxis Plan -Will hold off on resuming any antihypertensive until GI bleed resolved Hospital management: Lines: peripheral IV Diet: NPO GI prophylaxis: pantoprazole DVT prophylaxis: NA Disposition: pending EGD for ugib CODE STATUS: Full code Patient assessed under supervision of attending physician and senior resident Dr. Hinojosa PGY-2 Miya Chua MD PGY-1, Internal Medicine Please note: this document was transcribed using voice recognition technology; minor inaccuracies may be present. Attending Provider Attestation/Addendum I have examined the patient, reviewed labs and imaging findings, discussed the case with the resident(s), and reviewed entered orders. I agree with the plan of care as outlined in this note. Dr. Patrizia MD
--- NOTE | 2025-06-14 14:14 | PD.RESCONSUL ---
HPI Data of Consult Requesting Physician: Piop Rodriguez MD Admitting Provider: Pipo Rodriguez MD Attending Provider: Pipo Rodriguez MD Primary Care Provider: Physician No Primary/Family Consult Narrative History of present illness: 55-year-old male with a history of cirrhosis secondary to hepatitis C, esophageal varices (status post banding in October 2024), psoriasis, iwr-vdvhfpd-maapencnd type 2 diabetes mellitus, hemorrhoids, and hypertension presented to [facility] ED on 06/13 with one episode of black tarry stool, prompting admission for GI bleed management. EGD in October 2024 showed grade 2 esophageal varices in the lower third of the esophagus, with 3 bands placed. Colonoscopy in January 2025 revealed grade 4 internal hemorrhoids and a large sessile polyp. The patient has had an upset stomach for the past 2 days, leading to decreased oral intake. His hemoglobin was 10.2 on admission and has dropped to 9.1 today. Uses NSAIDs up to 3 times a day for low back pain management for the past year. Past medical history: As stated above. Past surgical history: Lower back surgery years ago Allergies: NKDA Family history: Noncontributory. Social history: No alcohol use for over 20 years, no smoking, no illicit drug use. GI consulted for evaluation and management of GI bleed. cc:: cc: Pipo Rodriguez MD Review of Systems Review of Systems Systems Reviewed: All systems reviewed, normal except as documented Exam Vital Signs Temp Pulse Resp BP Pulse Ox O2 Del Method 97.6 F 71 18 118/61 100 Room Air 06/14/25 12:00 06/14/25 12:56 06/14/25 12:56 06/14/25 12:00 06/14/25 12:56 06/14/25 12:00 Narrative Exam General: AOx3, no acute distress, able to speak full sentences HEENT: NC/AT, mucous membranes moist, bilateral sclera anicteric Cardiovascular: regular rate and rhythm, S1/S2 present, no murmurs appreciated Pulmonary: clear to auscultation bilaterally, no rales/rhonchi/wheezes Abdominal: soft, non-tender, non-distended, no rebound/guarding, normal bowel sounds present Musculoskeletal: normal ROM, no peripheral edema Skin: warm and dry, intact, no rashes, Neuro: CN II-XII intact, no focal deficits Psych: approriate mood and affect Results Labs 06/15/25 04:38 06/15/25 04:38 Labs: Short CBC 06/13/25 06/14/25 Range/Units 23:17 02:31 WBC 8.3 6.2 (3.8-10.6) Thou/mm3 Hgb 10.2 L 9.1 L (13.5-16.0) g/dL Hct 30.3 L 26.9 L (41.0-53.0) % Plt Count 129 L D 73 L D (140-440) Thou/mm3 BMP 06/13/25 06/14/25 23:17 02:31 Sodium 141 141 Potassium 4.2 4.0 Chloride 104 106 Carbon Dioxide 25.5 22.6 BUN 24 H 18 Creatinine 0.7 0.6 Glucose 176 H 142 H Calcium 8.8 8.5 Liver Function 06/13/25 06/14/25 Range/Units 23:17 02:31 Total Bilirubin 2.8 H 2.5 H (0.3-1.2) mg/dL AST 39 H 36 H (0-34) U/L ALT 25 23 (10-49) U/L Alkaline Phosphatase 67 62 (46-116) U/L Albumin 3.7 3.4 L (3.5-5.0) gm/dL Urine 06/14/25 Range/Units 03:00 Urine Color Yellow (Lt Yel-Yel) Urine Clarity Clear (Clear/Hazy) Urine pH 6.0 (5.0-7.0) Ur Specific [place] 1.039 H (1.001-1.035) Urine Protein 1+ A (Neg - Trace) Urine Glucose (UA) 1+ A (Negative) Quality Measures Quality Measures VTE prophylaxis Medications Home Medications and Allergies Home Medications ?Medication ?Instructions ?Recorded ?Confirmed ?Type carvedilol 3.125 mg tablet 3.125 mg PO QDAY 01/20/25 06/14/25 History metformin 750 mg tablet 1,000 mg PO BIDWMEAL 06/14/25 06/14/25 History ondansetron HCl 8 mg tablet 8 mg PO Q12H PRN nausea and 06/14/25 06/14/25 History vomiting Allergies Allergy/AdvReac Type Severity Reaction Status Date / Time No Known Allergies Allergy Verified 06/13/25 22:57 Visit Medications Acetaminophen (Acetaminophen 325 Mg Tablet) 650 mg PO Q6H PRN PRN Reason: Fever >101.5 or pain 1-3 Stop: 07/14/25 02:01 Dextrose (Dextrose 50%-Water Inj 50 Ml Syringe) 25 ml IV Q15MIN PRN PRN Reason: BG 50-70 responsive npo pt Stop: 07/14/25 02:04 Dextrose (Dextrose 50%-Water Inj 50 Ml Syringe) 50 ml IV Q15MIN PRN PRN Reason: BG <50 OR BG <70 & pt unresponsive Stop: 07/14/25 02:04 Glucagon (Glucagon Inj 1 Mg Vial) 1 mg IM Q15MIN PRN PRN Reason: BG <70, and no IV access Octreotide Acetate 1,000 mcg/ (Sodium Chloride) 102 mls @ 5.1 mls/hr IV .Q20H ONE; Protocol Stop: 06/14/25 19:47 Last Admin: 06/14/25 00:20 Dose: 50 mcg/hr, 5.1 mls/hr Ceftriaxone Sodium/Dextrose (Rocephin/D5w 1gm Iv Premix) 1 gm in 50 mls @ 100 mls/hr IV HS ADARSH Stop: 06/21/25 20:59 Insulin Human Lispro (Insulin Lispro (Admelog) 1 Unit/0.01 Ml Unit) 0 unit SC Q6HR ADARSH; Protocol Stop: 07/14/25 11:59 Last Admin: 06/14/25 12:16 Dose: Not Given Morphine Sulfate (Morphine Sulf Inj 4 Mg/Ml Vial) 1 mg IVP Q6H PRN PRN Reason: BREAKTHROUGH PAIN Stop: 06/19/25 02:28 Last Admin: 06/14/25 02:41 Dose: 1 mg Ondansetron HCl (Ondansetron Inj 2 Mg/Ml Inj 2 Ml) 4 mg IVP Q6H PRN; Protocol PRN Reason: NAUSEA OR VOMITING Stop: 07/14/25 02:01 Pantoprazole Sodium (Pantoprazole Inj 40 Mg Vial) 40 mg IVP BID ADARSH Stop: 07/14/25 20:59 Discontinued Medications Pantoprazole Sodium (Protonix/Ns 80mg Iv Premix) 80 mg in 100 mls @ 400 mls/hr IV X1 ONE Stop: 06/14/25 00:03 Last Infusion: 06/14/25 00:41 Dose: Infused Pantoprazole Sodium (Protonix/Ns 80mg Iv Premix) 80 mg in 100 mls @ 10 mls/hr IV X1 ONE Stop: 06/14/25 09:48 Last Admin: 06/14/25 00:21 Dose: 10 mls/hr Ceftriaxone Sodium/Dextrose (Rocephin/D5w 1gm Iv Premix) 1 gm in 50 mls @ 100 mls/hr IV X1 ONE Stop: 06/14/25 02:59 Last Infusion: 06/14/25 03:15 Dose: Infused Lactated Ringer's (Lactated Ringers) 1,000 mls @ 100 mls/hr IV .Q10H ADARSH Stop: 06/14/25 12:41 Last Admin: 06/14/25 04:45 Dose: 100 mls/hr Lactated Ringer's (Lactated Ringers) 1,000 mls @ 999 mls/hr IV .Q1H1M ONE Stop: 06/14/25 03:59 Last Admin: 06/14/25 03:38 Dose: 999 mls/hr Insulin Human Lispro (Insulin Lispro (Admelog) 1 Unit/0.01 Ml Unit) 0 unit SC Q6H ADARSH; Protocol Stop: 07/14/25 02:14 Last Admin: 06/14/25 02:28 Dose: Not Given Octreotide Acetate (Octreotide Acet Inj 50 Mcg/Ml Vial) 50 mcg IV X1 ONE Stop: 06/13/25 23:49 Last Admin: 06/14/25 00:19 Dose: 50 mcg Ondansetron HCl (Ondansetron Inj 2 Mg/Ml Inj 2 Ml) 4 mg IVP X1 ONE; Protocol Stop: 06/14/25 02:03 Last Admin: 06/14/25 02:41 Dose: 4 mg Assessment & Plan Plan 55-year-old male with a history of cirrhosis secondary to hepatitis C infection, esophageal varices status post banding most recently in October 2024, psoriasis, fuu-vymxsnz-ekkqzcqed type 2 diabetes mellitus, hemorrhoids, and hypertension who presented to [facility] ED on 06/13 for 1 episode of black tarry stool. GI consulted for evaluation and management of GI bleed. #GI bleed, likely upper #Hx of liver cirrhosis 2/2 #Hx of hepatitis C, treated #Hx of esophageal varices, s/p banding #Hx of internal hemorrhoids, grade 4, s/p banding #Multiple nonenhancing liver lesions For the past 2 days patient has been having an upset stomach and has resulted in decreased p.o. intake and 1 episode of melena last night. Patient admits to taking NSAIDs up to 3 times a day for lower back pain, admits that if he is active his lower back pain resolves however during the winter months staying active has been a challenge for him. No alcohol use for >20 years EGD 10/2024 showed grade 2 esophageal varices in the lower third of the esophagus with 3 bands placed. Colonoscopy in 12/2024 showed internal hemorrhoids grade 4 and a large sessile polyp. Anemia present, hemoglobin 9.1 today Patient is hemodynamically stable, not requiring oxygen Thrombocytopenia present, platelet 73 today Coagulopathy present, INR elevated at 1.4 Given patient's previous history of esophageal varices it is likely that the patient is bleeding from that region Plan: ?Keep n.p.o. ?Protonix 40 mg twice daily ?Continue octreotide drip to reduce portal hypertension ?EGD planned for tonight ?Counseled on cessation of NSAID use as it will lead to recurrent GI bleeds ?Monitor for signs of ongoing bleeding, liver decompensation, or worsening anemia (fatigue, hypotension, altered mental status) ?Monitor hgb with daily CBC, transfuse if hgb <7 Ongoing issues , managed by the primary team: #Gallstones #Anemia, normocytic #History of iron deficiency anemia #Lactic acidosis #Coagulopathy #Czq-nbgdgrp-jlzyauiol type 2 diabetes mellitus #Psoriasis #Hypertension Thank you for the consult. We will continue to follow the patient. Case discussed with my attending Dr. Carl Britt MD PGY-1 Attending Provider Attestation/Addendum Patient evaluated and personally examined Laboratory data reviewed Cirrhotic liver disease secondary to hepatitis C with previous history of medication esophageal varices not present with melanotic stools Consent obtained for fiberoptic esophagogastroduodenoscopy biopsy therapeutic intervention under intravenous moderate sedation Serial CBC Octreotide infusion at 50 mcg/h IV Protonix N.p.o. till the procedure is done Will follow the patient Thank you very much for the opportunity to participate in the care of this patient
--- NOTE | 2025-06-14 14:49 | PD.RESDS ---
Planned Discharge Date 06/14/25 DS: Providers Provider Date of admission: 06/14/25 02:02 Primary care physician: Physician No Primary/Family Admitting Provider: Pipo Rodriguez MD Attending Provider on Admission: Pipo Rodriguez MD Consults: 06/13/25 23:48 Consult to Gastroenterology Stat Comment: Consulting Provider: Tra Henry Attending Provider on DC: Marquez Britt MD Discharging Provider: Marquez Britt MD Hospital Course Hospital Course Hospital course: 55-year-old male with a history of cirrhosis secondary to hepatitis C infection, esophageal varices status post banding most recently in October 2024, psoriasis, aja-htvhxxz-qpdkaojzf type 2 diabetes mellitus, hemorrhoids, and hypertension who presented to [facility] ED on 06/13 for 1 episode of black tarry stool. Patient was admitted for management of GI bleed. EGD and October 2024 showed grade 2 esophageal varices in the lower third of the esophagus with 3 bands placed. Colonoscopy in January 2025 showed internal hemorrhoids grade 4 and a large sessile polyp. For the past 2 days patient has been having an upset stomach and has resulted in decreased p.o. intake. Hemoglobin admission 10.2 and dropped to 9.1 today. Past medical history: As stated above. Past surgical history: Lower back surgery years ago Allergies: NKDA Family history: Noncontributory. Social history: No alcohol use for over 20 years, no smoking, no illicit drug use. GI consulted for evaluation and management of potential GI bleed. Time Spent with Patient Time attestation: Total time spent providing and/or coordinating discharge services: Exam Vital Signs Temp Pulse Resp BP Pulse Ox O2 Del Method 97.6 F 71 18 118/61 100 Room Air 06/14/25 12:00 06/14/25 12:56 06/14/25 12:56 06/14/25 12:00 06/14/25 12:56 06/14/25 12:00 Discharge Plan Prescriptions/Referrals Prescriptions/Med Rec: No Action ferrous sulfate [Iron (ferrous sulfate)] 325 mg (65 mg iron) tablet 325 mg PO QDAY Qty: 30 5RF carvedilol 3.125 mg tablet 3.125 mg PO QDAY ondansetron HCl 8 mg tablet 8 mg PO Q12H PRN (Reason: nausea and vomiting) Patient Comments: TAKE 1 TABLET BY MOUTH EVERY DAY NEEDED metformin 750 mg tablet 1,000 mg PO BIDWMEAL Referrals: No Primary/Family,Physician [Primary Care Provider] Patient/Caregiver Discharge Instructions Print Language: Slovak
--- NOTE | 2025-06-14 19:08 | PC.NURSE ---
to endo per [facility], saline locked iv.
--- NOTE | 2025-06-14 19:59 | SUR.PHASEI ---
pt received from OR in recovery bay 1. pt asleep but responds to voice, breathing unlabored on room air. v/s stable. report received from Amanda BELTRE.
--- NOTE | 2025-06-14 20:35 | SUR.PHASEI ---
pt asleep but responds to voice, breathing unlabored on room air. v/s stable. report called to Claudia BELTRE. pt will be transferred to room at this time.
[2025-06-15] VITALS (9 sets, daily range): BP systolic 125–147; BP diastolic 63–73; PULSE 73–88; RESP 16–20; TEMP 36.3–36.7; O2SAT 96–99
--- NOTE | 2025-06-15 01:36 | PC.NURSE ---
called RT- notified re ekg ordered.
--- NOTE | 2025-06-15 02:27 | EKG_ITS ---
[facility] Test Date: 2025-06-15 Pat Name: EDITH GORDON Department: Room: 54A Gender: Male All Source Collection Manager: [id number] : 1970 Requested By: Rich Espinal Order Number: [id number] Reading MD: Rich Espinal Measurements Intervals [place] Rate: 80 P: 53 LA: 152 QRS: -6 QRSD: 85 T: 38 QT: 405 QTc: 469 Interpretive Statements SINUS RHYTHM LOW QRS VOLTAGE IN EXTREMITY LEADS Compared to ECG 02/08/2025 01:54:03 Low QRS voltage now present /store/S0/[id number]/ecg/[id number].pdf
--- NOTE | 2025-06-15 02:34 | PC.RT ---
EKG done at this time.
[2025-06-15 05:58] LABS: Basophils # (Auto) 0.0 Thou/mm3 (0.0-0.2); Basophils % (Auto) 1 % (0-2.5); Eosinophils # (Auto) 0.1 Thou/mm3 (0.0-0.5); Eosinophils % (Auto) 3 % (0-10); Hematocrit 25.8 % (41.0-53.0); Immature Granulocytes Auto 0.01 Thou/mm3 (0.00-0.00); Lymphocytes # (Auto) 1.2 Thou/mm3 (1.0-4.8); Lymphocytes % (Auto) 34 % (10-50); Mean Corpuscular HGB Conc 33.7 g/dl (31.0-37.0); Mean Corpuscular Hemoglobin 30.3 pg (25.0-35.0); Mean Corpuscular Volume 90 fL (80-100); Monocytes # (Auto) 0.5 Thou/mm3 (0.0-0.8); Monocytes % (Auto) 13 % (0-12); Neutrophils # (Auto) 1.8 Thou/mm3 (1.8-7.7); Neutrophils % (Auto) 49 % (37-80); Nucleated Red Blood Cell # 0.00 Thou/mm3 (0.00-0.00); Nucleated Red Blood Cell % 0 /100 WBC (0); RDW Standard Deviation 63.9 fL (35.1-43.9); Red Blood Count 2.87 Miln/mm3 (4.50-5.90); White Blood Count 3.6 Thou/mm3 (3.8-10.6)
[2025-06-15 06:23] LABS: Alanine Aminotransferase 27 U/L (10-49); Albumin, Serum 3.3 gm/dL (3.5-5.0); Albumin/Globulin Ratio 1.0 (1.2-2.2); Alkaline Phosphatase 61 U/L (46-116); Anion Gap 11 (7-16); Aspartate Amino Transferase 46 U/L (0-34); BUN/Creatinine Ratio 23 Ratio (12-20); Bilirubin,Total 2.0 mg/dL (0.3-1.2); Blood Urea Nitrogen 16 mg/dL (9-23); Calcium 8.2 mg/dL (8.3-10.6); Calcium (Corrected) 8.8 mg/dL (8.5-10.1); Carbon Dioxide 26.5 mMol/L (20.0-31.0); Chloride 106 mMol/L (98-107); Creatinine (Component) 0.7 mg/dL (0.6-1.3); Estimated Creatinine Clearance 112.6 mL/min (>60); Globulin 3.4 gm/dL (2.3-3.5); Glucose 135 mg/dL (74-106); Osmolality,Calculated 288 (275-295); Potassium 3.8 mMol/L (3.4-5.1); Sodium 143 mMol/L (136-145); Total Protein 6.7 gm/dL (5.7-8.2); eGFR > 60 See Note
[2025-06-15 06:44] LABS: AFP Non-Pregnant 1.50 ng/mL (<8.10)
[2025-06-15 07:14] LABS: Hemoglobin 8.7 g/dL (13.5-16.0); Platelet Count 66 Thou/mm3 (140-440)
--- NOTE | 2025-06-15 07:51 | PC.NURSE ---
It was reported that we still need an occult blood stool on patient. Night nurse said patient has not had a bm yet so she was unable to collect. During my morning assessment patient said he had a bm a couple hours ago. Educated patient that we need a sample of his stool when he has a bm. Hat in bathroom. Will collect when patient has another bm.
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
--- NOTE | 2025-06-15 11:50 | PC.NURSE ---
Went in to check Patient's blood sugar. Patient said the doctors came by and talked to him and told him he is still staying. Patient does not want to stay anymore days. He said he isn't vomiting blood or pooping blood so he doesn't know why he needs to stay longer. Educated patient that becaase of his EGD findings he needs to complete 5 days of sandostatin medication. Informed him that it is very important to complete the medication. Asked patient if there is anything I can do for him at this time. Pt is resting in bed and said no other needs at this time.
[2025-06-15 13:15] LABS: Slide Review Platelets confirmed
[2025-06-15] MEDS: OCTREOTIDE ACET INJ 1,000 MCG in SODIUM CHLORIDE 0.9% 100 ML 5.1 MCG IV (17:13)
[2025-06-15] MEDS: SPIRONOLACTONE 25 MG TABLET PO (20:26)
[2025-06-15] MEDS: cefTRIAXone/D5w 1gm IV premix 1 GM/50 ML BAG IV (20:26)
--- NOTE | 2025-06-15 21:16 | PD.IMPROG ---
Documentation for date of: 06/15/25 Subjective Subjective Interval history: Patient evaluated Hemoglobin hematocrit 8.7 and 25.8 patient status post band ligation of the esophageal varices in total 3 bands put in Exam Vital Signs Temp Pulse Resp BP Pulse Ox O2 Del Method O2 Flow Rate 97.8 F 84 20 134/63 H 96 Room Air 3 06/15/25 20:00 06/15/25 20:26 06/15/25 20:00 06/15/25 20:26 06/15/25 20:00 06/15/25 20:00 06/15/25 08:00 Objective Labs 06/15/25 04:38 06/15/25 04:38 Labs: Laboratory Results - last 24 hr 06/15/25 04:38 WBC 3.6 L D RBC 2.87 L Hgb 8.7 L Hct 25.8 L MCV 90 MCH 30.3 MCHC 33.7 RDW Std Deviation 63.9 H Plt Count 66 L Neut % (Auto) 49 Lymph % (Auto) 34 [place] % (Auto) 13 H Eos % (Auto) 3 Baso % (Auto) 1 Neut # (Auto) 1.8 Lymph # (Auto) 1.2 [place] # (Auto) 0.5 Eos # (Auto) 0.1 Baso # (Auto) 0.0 Immature Gran # (Auto) 0.01 H Absolute Nucleated RBC 0.00 Immature Gran % 0 Nucleated RBC % 0 Sodium 143 Potassium 3.8 Chloride 106 Carbon Dioxide 26.5 Anion Gap 11 BUN 16 Creatinine 0.7 Estim Creat Clear Calc 112.6 eGFR > 60 BUN/Creatinine Ratio 23 H Glucose 135 H Calculated Osmolality 288 Calcium 8.2 L Corrected Calcium 8.8 Total Bilirubin 2.0 H D AST 46 H ALT 27 Alkaline Phosphatase 61 Total Protein 6.7 Albumin 3.3 L Globulin 3.4 Albumin/Globulin Ratio 1.0 L Tumor Marker AFP 1.50 Misc Test Result Platelets confirmed Impressions Impression: # Status post band ligation of the esophageal varices in total 3 bands put in # Hypertensive portal gastropathy with mucosal oozing of blood continue octreotide Advance diet as tolerated Assessment & Plan Time Spent With Patient Time: Total time spent is greater than 50% in coordination of care (as documented) at patient's floor/unit and/or counseling patient:
[2025-06-16] VITALS (10 sets, daily range): BP systolic 124–170; BP diastolic 64–82; PULSE 68–118; RESP 13–96; TEMP 36.3–36.6; O2SAT 92–99; BMI 20.9
--- NOTE | 2025-06-16 03:17 | PC.NURSE ---
Called Dr. Corona regarding patient waking up really confused. The patient is a&o to self only, MD will place orders.
[2025-06-16 05:23] LABS: Lactate (Lactic Acid) 1.5 mMol/L (0.4-2.0)
[2025-06-16 05:37] LABS: Basophils # (Auto) 0.0 Thou/mm3 (0.0-0.2); Basophils % (Auto) 1 % (0-2.5); Eosinophils # (Auto) 0.0 Thou/mm3 (0.0-0.5); Eosinophils % (Auto) 1 % (0-10); Hematocrit 26.5 % (41.0-53.0); Hemoglobin 9.1 g/dL (13.5-16.0); Immature Granulocytes Auto 0.01 Thou/mm3 (0.00-0.00); Lymphocytes # (Auto) 0.8 Thou/mm3 (1.0-4.8); Lymphocytes % (Auto) 15 % (10-50); Mean Corpuscular HGB Conc 34.3 g/dl (31.0-37.0); Mean Corpuscular Hemoglobin 30.1 pg (25.0-35.0); Mean Corpuscular Volume 88 fL (80-100); Monocytes # (Auto) 0.6 Thou/mm3 (0.0-0.8); Monocytes % (Auto) 11 % (0-12); Neutrophils # (Auto) 4.0 Thou/mm3 (1.8-7.7); Neutrophils % (Auto) 73 % (37-80); Nucleated Red Blood Cell # 0.00 Thou/mm3 (0.00-0.00); Nucleated Red Blood Cell % 0 /100 WBC (0); RDW Standard Deviation 61.0 fL (35.1-43.9); Red Blood Count 3.02 Miln/mm3 (4.50-5.90); White Blood Count 5.5 Thou/mm3 (3.8-10.6)
[2025-06-16 05:55] LABS: Alanine Aminotransferase 25 U/L (10-49); Albumin, Serum 3.5 gm/dL (3.5-5.0); Albumin/Globulin Ratio 1.0 (1.2-2.2); Alkaline Phosphatase 65 U/L (46-116); Anion Gap 12 (7-16); Aspartate Amino Transferase 39 U/L (0-34); BUN/Creatinine Ratio 20 Ratio (12-20); Bilirubin,Total 2.1 mg/dL (0.3-1.2); Blood Urea Nitrogen 12 mg/dL (9-23); Calcium 8.1 mg/dL (8.3-10.6); Calcium (Corrected) 8.5 mg/dL (8.5-10.1); Carbon Dioxide 22.6 mMol/L (20.0-31.0); Chloride 107 mMol/L (98-107); Creatinine (Component) 0.6 mg/dL (0.6-1.3); Estimated Creatinine Clearance 131.4 mL/min (>60); Globulin 3.5 gm/dL (2.3-3.5); Glucose 166 mg/dL (74-106); Osmolality,Calculated 286 (275-295); Platelet Count 79 Thou/mm3 (140-440); Potassium 3.7 mMol/L (3.4-5.1); Sodium 142 mMol/L (136-145); Total Protein 7.0 gm/dL (5.7-8.2); eGFR > 60 See Note
[2025-06-16 06:02] LABS: Slide Review Platelets confirmed
[2025-06-16 06:10] LABS: Ammonia 205 uMol/L (11-32)
[2025-06-16] MEDS: LACTULOSE SYRUP 20 GM/30 ML UDC PO ×3 (06:27→14:07)
--- NOTE | 2025-06-16 08:44 | PC.NURSE ---
Patient is very lethargic and sleepy. Wakes up with shaking and goes back to sleep. Not safe to give PO meds right now. Dr. Hinojosa on the floor. Made aware of patient's mentation. Will continue to assess.
--- NOTE | 2025-06-16 09:34 | PC.NURSE ---
Called Dr. Chua to inquire about patient. Patient is still very lethargic. only wakes upon shaking and the goes back to sleep. Sleeps with eyes partially open. will speak to the team and get back to me.
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
[2025-06-16] MEDS: OCTREOTIDE ACET INJ 1,000 MCG in SODIUM CHLORIDE 0.9% 100 ML 5.1 MCG IV (14:07)
--- NOTE | 2025-06-16 15:21 | PC.SS ---
rounding note: Patient remains on a drip until the . Patient confused today.
--- NOTE | 2025-06-16 16:47 | PC.NURSE ---
Patient's HR is in the 115's-120's. Patient is still restless, trying to get out of bed. Daughter at bedside. Called Dr. Hinojosa and made aware. to put in new med orders for patient.
[2025-06-16] MEDS: INSULIN LISPRO (AdmeLOG) 1 UNIT/0.01 ML UNIT SC (17:41)
[2025-06-16] MEDS: LORazepam 2 MG/ML VIAL 1 MG IVP (17:54)
--- NOTE | 2025-06-16 20:12 | PD.IMPROG ---
Documentation for date of: 06/16/25 Subjective Subjective Interval history: Hemoglobin hematocrit 9.1 and 26.5 with a platelet count of 79,000 Exam Vital Signs Temp Pulse Resp BP Pulse Ox O2 Del Method O2 Flow Rate 97.8 F 73 19 124/69 96 Room Air 3 06/16/25 19:32 06/16/25 19:32 06/16/25 19:32 06/16/25 19:32 06/16/25 19:32 06/16/25 16:00 06/15/25 08:00 Objective Labs 06/16/25 05:04 06/16/25 05:04 Labs: Laboratory Results - last 24 hr 06/16/25 05:04 WBC 5.5 D RBC 3.02 L Hgb 9.1 L Hct 26.5 L MCV 88 MCH 30.1 MCHC 34.3 RDW Std Deviation 61.0 H Plt Count 79 L Neut % (Auto) 73 Lymph % (Auto) 15 [place] % (Auto) 11 Eos % (Auto) 1 Baso % (Auto) 1 Neut # (Auto) 4.0 Lymph # (Auto) 0.8 L [place] # (Auto) 0.6 Eos # (Auto) 0.0 Baso # (Auto) 0.0 Immature Gran # (Auto) 0.01 H Absolute Nucleated RBC 0.00 Immature Gran % 0 Nucleated RBC % 0 Sodium 142 Potassium 3.7 Chloride 107 Carbon Dioxide 22.6 Anion Gap 12 BUN 12 Creatinine 0.6 Estim Creat Clear Calc 131.4 eGFR > 60 BUN/Creatinine Ratio 20 Glucose 166 H Calculated Osmolality 286 Lactic Acid 1.5 Calcium 8.1 L Corrected Calcium 8.5 Total Bilirubin 2.1 H AST 39 H ALT 25 Alkaline Phosphatase 65 Ammonia 205 H* Total Protein 7.0 Albumin 3.5 Globulin 3.5 Albumin/Globulin Ratio 1.0 L Misc Test Result Platelets confirmed Impressions Impression: Esophageal variceal bleeding requiring band ligation Advance diet Continue octreotide infusion Assessment & Plan Time Spent With Patient Time: Total time spent is greater than 50% in coordination of care (as documented) at patient's floor/unit and/or counseling patient:
[2025-06-16] MEDS: cefTRIAXone/D5w 1gm IV premix 1 GM/50 ML BAG IV (21:35)
[2025-06-16] MEDS: LACTULOSE SYRUP 10 GM/15 ML 200 GM PR (21:36)
[2025-06-17] VITALS (12 sets, daily range): BP systolic 116–150; BP diastolic 66–87; PULSE 70–102; RESP 15–97; TEMP 36.5–37.3; O2SAT 95–99; BMI 20.9; BMI 21.0
[2025-06-17] MEDS: INSULIN LISPRO (AdmeLOG) 1 UNIT/0.01 ML UNIT SC ×2 (00:23→11:52)
[2025-06-17 05:31] LABS: Basophils # (Auto) 0.0 Thou/mm3 (0.0-0.2); Basophils % (Auto) 1 % (0-2.5); Eosinophils # (Auto) 0.0 Thou/mm3 (0.0-0.5); Eosinophils % (Auto) 0 % (0-10); Hematocrit 26.4 % (41.0-53.0); Immature Granulocytes Auto 0.01 Thou/mm3 (0.00-0.00); Lymphocytes # (Auto) 1.4 Thou/mm3 (1.0-4.8); Lymphocytes % (Auto) 23 % (10-50); Mean Corpuscular HGB Conc 33.3 g/dl (31.0-37.0); Mean Corpuscular Hemoglobin 29.6 pg (25.0-35.0); Mean Corpuscular Volume 89 fL (80-100); Monocytes # (Auto) 0.9 Thou/mm3 (0.0-0.8); Monocytes % (Auto) 14 % (0-12); Neutrophils # (Auto) 3.8 Thou/mm3 (1.8-7.7); Neutrophils % (Auto) 61 % (37-80); Nucleated Red Blood Cell # 0.00 Thou/mm3 (0.00-0.00); Nucleated Red Blood Cell % 0 /100 WBC (0); Platelet Count 82 Thou/mm3 (140-440); RDW Standard Deviation 63.1 fL (35.1-43.9); Red Blood Count 2.97 Miln/mm3 (4.50-5.90); White Blood Count 6.1 Thou/mm3 (3.8-10.6)
[2025-06-17 05:34] LABS: Hemoglobin 8.8 g/dL (13.5-16.0)
[2025-06-17] MEDS: LACTULOSE SYRUP 20 GM/30 ML UDC PO ×3 (06:04→21:30)
[2025-06-17 06:16] LABS: Alanine Aminotransferase 23 U/L (10-49); Albumin, Serum 3.2 gm/dL (3.5-5.0); Albumin/Globulin Ratio 0.8 (1.2-2.2); Alkaline Phosphatase 63 U/L (46-116); Anion Gap 10 (7-16); Aspartate Amino Transferase 32 U/L (0-34); BUN/Creatinine Ratio 27 Ratio (12-20); Bilirubin,Total 1.9 mg/dL (0.3-1.2); Blood Urea Nitrogen 16 mg/dL (9-23); Calcium 8.5 mg/dL (8.3-10.6); Calcium (Corrected) 9.1 mg/dL (8.5-10.1); Carbon Dioxide 26.2 mMol/L (20.0-31.0); Chloride 108 mMol/L (98-107); Creatinine (Component) 0.6 mg/dL (0.6-1.3); Estimated Creatinine Clearance 125.4 mL/min (>60); Globulin 3.8 gm/dL (2.3-3.5); Glucose 153 mg/dL (74-106); Osmolality,Calculated 291 (275-295); Potassium 3.5 mMol/L (3.4-5.1); Sodium 144 mMol/L (136-145); Total Protein 7.0 gm/dL (5.7-8.2); eGFR > 60 See Note
[2025-06-17] MEDS: SPIRONOLACTONE 25 MG TABLET PO ×2 (08:59→21:28)
[2025-06-17] MEDS: ONDANSETRON INJ 2 MG/ML INJ 2 ML 4 MG IVP (11:05)
[2025-06-17] MEDS: LORazepam 2 MG/ML VIAL 1 MG IVP (11:52)
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
[2025-06-17] MEDS: OCTREOTIDE ACET INJ 1,000 MCG in SODIUM CHLORIDE 0.9% 100 ML 5.1 MCG IV (14:41)
--- NOTE | 2025-06-17 19:00 | PD.IMPROG ---
Documentation for date of: 06/17/25 Subjective Subjective Interval history: Patient evaluated Hemoglobin hematocrit 8.8 and 26.4 Exam Vital Signs Temp Pulse Resp BP Pulse Ox O2 Del Method O2 Flow Rate 97.8 F 77 16 119/66 98 Room Air 3 06/17/25 15:23 06/17/25 16:00 06/17/25 15:23 06/17/25 15:23 06/17/25 15:23 06/17/25 15:23 06/15/25 08:00 Objective Labs 06/17/25 04:19 06/17/25 04:19 Labs: Laboratory Results - last 24 hr 06/17/25 04:19 WBC 6.1 RBC 2.97 L Hgb 8.8 L Hct 26.4 L MCV 89 MCH 29.6 MCHC 33.3 RDW Std Deviation 63.1 H Plt Count 82 L Neut % (Auto) 61 Lymph % (Auto) 23 [place] % (Auto) 14 H Eos % (Auto) 0 Baso % (Auto) 1 Neut # (Auto) 3.8 Lymph # (Auto) 1.4 [place] # (Auto) 0.9 H Eos # (Auto) 0.0 Baso # (Auto) 0.0 Immature Gran # (Auto) 0.01 H Absolute Nucleated RBC 0.00 Immature Gran % 0 Nucleated RBC % 0 Sodium 144 Potassium 3.5 Chloride 108 H Carbon Dioxide 26.2 Anion Gap 10 BUN 16 Creatinine 0.6 Estim Creat Clear Calc 125.4 eGFR > 60 BUN/Creatinine Ratio 27 H Glucose 153 H Calculated Osmolality 291 Calcium 8.5 Corrected Calcium 9.1 Total Bilirubin 1.9 H AST 32 ALT 23 Alkaline Phosphatase 63 Total Protein 7.0 Albumin 3.2 L Globulin 3.8 H Albumin/Globulin Ratio 0.8 L Impressions Impression: Acute upper GI bleed Posthemorrhagic anemia Status post band ligation of the esophageal varices Advance diet Continue octreotide infusion Assessment & Plan Time Spent With Patient Time: Total time spent is greater than 50% in coordination of care (as documented) at patient's floor/unit and/or counseling patient:
[2025-06-17] MEDS: cefTRIAXone/D5w 1gm IV premix 1 GM/50 ML BAG IV (21:30)
[2025-06-18] VITALS (8 sets, daily range): BP systolic 114–146; BP diastolic 65–87; PULSE 68–89; RESP 13–18; TEMP 36.3–37.2; O2SAT 96–98; BMI 21.0
[2025-06-18] MEDS: LACTULOSE SYRUP 20 GM/30 ML UDC PO ×2 (05:25→21:35)
[2025-06-18] MEDS: INSULIN LISPRO (AdmeLOG) 1 UNIT/0.01 ML UNIT SC ×2 (05:28→11:25)
[2025-06-18 05:54] LABS: Basophils # (Auto) 0.1 Thou/mm3 (0.0-0.2); Basophils % (Auto) 1 % (0-2.5); Eosinophils # (Auto) 0.1 Thou/mm3 (0.0-0.5); Eosinophils % (Auto) 2 % (0-10); Hematocrit 24.7 % (41.0-53.0); Immature Granulocytes Auto 0.01 Thou/mm3 (0.00-0.00); Lymphocytes # (Auto) 1.4 Thou/mm3 (1.0-4.8); Lymphocytes % (Auto) 29 % (10-50); Mean Corpuscular HGB Conc 33.6 g/dl (31.0-37.0); Mean Corpuscular Hemoglobin 29.9 pg (25.0-35.0); Mean Corpuscular Volume 89 fL (80-100); Monocytes # (Auto) 0.6 Thou/mm3 (0.0-0.8); Monocytes % (Auto) 13 % (0-12); Neutrophils # (Auto) 2.7 Thou/mm3 (1.8-7.7); Neutrophils % (Auto) 56 % (37-80); Nucleated Red Blood Cell # 0.00 Thou/mm3 (0.00-0.00); Nucleated Red Blood Cell % 0 /100 WBC (0); Platelet Count 91 Thou/mm3 (140-440); RDW Standard Deviation 59.7 fL (35.1-43.9); Red Blood Count 2.78 Miln/mm3 (4.50-5.90); White Blood Count 4.9 Thou/mm3 (3.8-10.6)
[2025-06-18 05:56] LABS: Hemoglobin 8.3 g/dL (13.5-16.0)
[2025-06-18 06:29] LABS: Alanine Aminotransferase 20 U/L (10-49); Albumin, Serum 3.3 gm/dL (3.5-5.0); Albumin/Globulin Ratio 0.9 (1.2-2.2); Alkaline Phosphatase 62 U/L (46-116); Anion Gap 10 (7-16); Aspartate Amino Transferase 26 U/L (0-34); BUN/Creatinine Ratio 26 Ratio (12-20); Bilirubin,Total 2.3 mg/dL (0.3-1.2); Blood Urea Nitrogen 18 mg/dL (9-23); Calcium 8.0 mg/dL (8.3-10.6); Calcium (Corrected) 8.6 mg/dL (8.5-10.1); Carbon Dioxide 25.0 mMol/L (20.0-31.0); Chloride 108 mMol/L (98-107); Creatinine (Component) 0.7 mg/dL (0.6-1.3); Estimated Creatinine Clearance 107.4 mL/min (>60); Globulin 3.5 gm/dL (2.3-3.5); Glucose 168 mg/dL (74-106); Osmolality,Calculated 290 (275-295); Potassium 3.4 mMol/L (3.4-5.1); Sodium 143 mMol/L (136-145); Total Protein 6.8 gm/dL (5.7-8.2); eGFR > 60 See Note
[2025-06-18] MEDS: OCTREOTIDE ACET INJ 1,000 MCG in SODIUM CHLORIDE 0.9% 100 ML 5.1 MCG IV (08:00)
[2025-06-18] MEDS: SPIRONOLACTONE 25 MG TABLET PO ×2 (08:01→20:52)
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
--- NOTE | 2025-06-18 15:18 | PC.SS ---
rounding note: Patient d/c held for medical reasons. Patient had bloody stools. Today is last day for patient's i.v. drip.
--- NOTE | 2025-06-18 18:03 | PD.IMPROG ---
Documentation for date of: 06/18/25 Subjective Subjective Interval history: Patient evaluated Hemoglobin hematocrit 8.3 and 24.4 As per the internal medicine resident patient had melanotic stool most likely old blood but fresh bleeding cannot be ruled out Hold onto the patient for 1 more day Repeat CBC in the morning Exam Vital Signs Temp Pulse Resp BP Pulse Ox O2 Del Method O2 Flow Rate 97.6 F 74 18 119/66 97 Room Air 3 06/18/25 16:00 06/18/25 16:00 06/18/25 16:00 06/18/25 16:00 06/18/25 16:00 06/18/25 16:00 06/15/25 08:00 Objective Labs 06/18/25 04:30 06/18/25 04:30 Labs: Laboratory Results - last 24 hr 06/18/25 04:30 WBC 4.9 RBC 2.78 L Hgb 8.3 L Hct 24.7 L MCV 89 MCH 29.9 MCHC 33.6 RDW Std Deviation 59.7 H Plt Count 91 L Neut % (Auto) 56 Lymph % (Auto) 29 [place] % (Auto) 13 H Eos % (Auto) 2 Baso % (Auto) 1 Neut # (Auto) 2.7 Lymph # (Auto) 1.4 [place] # (Auto) 0.6 Eos # (Auto) 0.1 Baso # (Auto) 0.1 Immature Gran # (Auto) 0.01 H Absolute Nucleated RBC 0.00 Immature Gran % 0 Nucleated RBC % 0 Sodium 143 Potassium 3.4 Chloride 108 H Carbon Dioxide 25.0 Anion Gap 10 BUN 18 Creatinine 0.7 Estim Creat Clear Calc 107.4 eGFR > 60 BUN/Creatinine Ratio 26 H Glucose 168 H Calculated Osmolality 290 Calcium 8.0 L Corrected Calcium 8.6 Total Bilirubin 2.3 H AST 26 ALT 20 Alkaline Phosphatase 62 Total Protein 6.8 Albumin 3.3 L Globulin 3.5 Albumin/Globulin Ratio 0.9 L Impressions Impression: Esophageal variceal bleeding requiring band ligation Melena Plan As in the HPI Assessment & Plan Time Spent With Patient Time: Total time spent is greater than 50% in coordination of care (as documented) at patient's floor/unit and/or counseling patient:
[2025-06-18] MEDS: cefTRIAXone/D5w 1gm IV premix 1 GM/50 ML BAG IV (20:51)
[2025-06-19] VITALS: BP 121/66; PULSE 70; PULSE 75; RESP 17; TEMP 36.3; O2SAT 96
[2025-06-19 04:00] VITALS: BP 131/65; PULSE 62; PULSE 63; RESP 17; TEMP 36.3; O2SAT 99
[2025-06-19 06:00] VITALS: BMI 21.0
[2025-06-19 06:10] LABS: Basophils # (Auto) 0.0 Thou/mm3 (0.0-0.2); Basophils % (Auto) 1 % (0-2.5); Eosinophils # (Auto) 0.2 Thou/mm3 (0.0-0.5); Eosinophils % (Auto) 3 % (0-10); Hematocrit 26.5 % (41.0-53.0); Hemoglobin 8.9 g/dL (13.5-16.0); Immature Granulocytes Auto 0.02 Thou/mm3 (0.00-0.00); Lymphocytes # (Auto) 1.7 Thou/mm3 (1.0-4.8); Lymphocytes % (Auto) 31 % (10-50); Mean Corpuscular HGB Conc 33.6 g/dl (31.0-37.0); Mean Corpuscular Hemoglobin 29.4 pg (25.0-35.0); Mean Corpuscular Volume 88 fL (80-100); Monocytes # (Auto) 0.8 Thou/mm3 (0.0-0.8); Monocytes % (Auto) 15 % (0-12); Neutrophils # (Auto) 2.7 Thou/mm3 (1.8-7.7); Neutrophils % (Auto) 50 % (37-80); Nucleated Red Blood Cell # 0.00 Thou/mm3 (0.00-0.00); Nucleated Red Blood Cell % 0 /100 WBC (0); Platelet Count 84 Thou/mm3 (140-440); RDW Standard Deviation 55.4 fL (35.1-43.9); Red Blood Count 3.03 Miln/mm3 (4.50-5.90); White Blood Count 5.5 Thou/mm3 (3.8-10.6)
[2025-06-19 06:39] LABS: Alanine Aminotransferase 17 U/L (10-49); Albumin, Serum 3.4 gm/dL (3.5-5.0); Albumin/Globulin Ratio 0.9 (1.2-2.2); Alkaline Phosphatase 63 U/L (46-116); Anion Gap 10 (7-16); Aspartate Amino Transferase 24 U/L (0-34); BUN/Creatinine Ratio 23 Ratio (12-20); Bilirubin,Total 2.3 mg/dL (0.3-1.2); Blood Urea Nitrogen 14 mg/dL (9-23); Calcium 8.2 mg/dL (8.3-10.6); Calcium (Corrected) 8.7 mg/dL (8.5-10.1); Carbon Dioxide 26.1 mMol/L (20.0-31.0); Chloride 105 mMol/L (98-107); Creatinine (Component) 0.6 mg/dL (0.6-1.3); Estimated Creatinine Clearance 125.4 mL/min (>60); Globulin 3.7 gm/dL (2.3-3.5); Glucose 151 mg/dL (74-106); Osmolality,Calculated 284 (275-295); Potassium 3.4 mMol/L (3.4-5.1); Sodium 141 mMol/L (136-145); Total Protein 7.1 gm/dL (5.7-8.2); eGFR > 60 See Note
[2025-06-19 08:00] VITALS: BP 128/67; PULSE 70; RESP 16; TEMP 36.3; O2SAT 99
[2025-06-19 09:46] VITALS: BP 128/67; PULSE 70
[2025-06-19] MEDS: SPIRONOLACTONE 25 MG TABLET PO (09:46)
--- NOTE | 2025-06-19 13:39 | PC.SS ---
TANNA f/u with patient to confirmed d/c plan. Patient will d/c home, and his kids will pick him up. Patient reports no further needs for SS.
--- NOTE | 2025-06-19 13:48 | ESDS_ITS ---
<Statement entered by Marquez Hinojosa MD - 06/19/25 13:49> Note reviewed and agree with care plan as documented. Please refer to the note below for further details. Plan discussed with attending physician Dr. Patrizia Hinojosa MD PGY-2 Internal Medicine Planned Discharge Date 06/19/25 DS: Providers Provider Date of admission: 06/14/25 02:02 Primary care physician: Physician No Primary/Family Admitting Provider: Pipo Rodriguez MD Attending Provider on Admission: Catherine Evans DO Consults: 06/13/25 23:48 Consult to Gastroenterology Stat Comment: Consulting Provider: Tra Henry Attending Provider on DC: Marquez Hinojosa MD Discharging Provider: Marquez Hinojosa MD DS: Diagnosis Problem List Completed Was Problem List Reviewed/Reconciled?: Yes Hospital Course Hospital Course Hospital course: Patient 55-year-old male with a history of cirrhosis secondary to hepatitis C infection, esophageal varices, psoriasis, svx-zkhfxfy-ehovfihln type 2 diabetes mellitus, hemorrhoids, and hypertension who presented to [facility] ED on 06/13 for black tarry stool. Patient was admitted for management of GI bleed. 5-day course of octreotide was given to which he was noted to have symptomatic improvement. Additionally, lactulose and rifaximin were administered for altered mental status 2/2 ammonemia. Patient was reported by nursing to have black tarry stools on Day 5 of admission which was not verified by patient nor providor team, to which he was further evaluated by gastroenterology who opted for nonoperative management. By Day 6 of admission, Mr. Guerrero was passing reported brown stools without concern for bleeding. His mentation was in tact, and he was deemed safe for discharge. Pt was safely discharged home with strict return precautions and auto travel counselor on following up with primary care providers and outpatient management, evaluation of hepatic lesions and incidental gallstones found on CT scan. Patient demonstrated understanding of instructions Discharge Diagnoses #Upper GI bleed #Liver cirrhosis 2/2 #History of hepatitis C, treated #Graded III Esophageal varices, s/p banding #Internal hemorrhoids, grade 4, s/p banding #Hepatic encephalopathy 2/2 #Liver Cirrhosis #Multiple nonenhancing liver lesions #Multiple hepatic lesions, likely metastatic process? #Gallstones #Anemia, normocytic #History of iron deficiency anemia #Coagulopathy #Thrombocytopenia(improving) #Brd-elfwcfo-lnmzyjhmf type 2 diabetes mellitus #Hypertension #Lactic acidosis (resolve) #Psoriasis Discharge instructions - Follow up with PCP in 1-2 weeks, If you don't have a PCP, you can make an appointment at the [facility]: - Prescribe new lactulose 30gm po - Continue rest of medications as previously prescribed - Return to the ED or call EMS is symptoms return and/or worsen - Please be sure to take your lactulose as prescribed, it will prevent confusion secondary to ammonia buildup from your liver disease - If there are any concerns regarding blood in your stools, headache, nausea, vomiting or any other issues please return to the ED - Gallstones were noted on your CT scan. They were not an acute issue this admission but if you would like to seek intervention please have your PCP refer you to a surgeon regarding treatment/therapies - Make sure to take your diabetes and blood pressure medications as prescribed Status at Discharge Cognitive/behavioral status at discharge: stable at baseline Time Spent with Patient Time attestation: Total time spent providing and/or coordinating discharge services: Time spent: Greater than 30 minutes Exam Vital Signs Temp Pulse Resp BP Pulse Ox O2 Del Method O2 Flow Rate 97.4 F 70 16 128/67 99 Room Air 3 06/19/25 08:00 06/19/25 09:46 06/19/25 08:00 06/19/25 09:46 06/19/25 08:00 06/19/25 08:00 06/15/25 08:00 Narrative Exam General: alert and oriented to self/place/year, no acute distress, able to speak full sentences HEENT: NC/AT, mucous membranes moist, bilateral sclera anicteric Cardiovascular: regular rate and rhythm, S1/S2 present, no murmurs appreciated Pulmonary: clear to auscultation bilaterally, no rales/rhonchi/wheezes Abdominal: soft, nontender, present bowel sounds Musculoskeletal: no peripheral edema Skin: Warm, well-perfused; psoriatic lesions present in knees, elbows consistent throughout admission Discharge Plan Plan Patient Disposition: HOME (Self Care) Patient condition on transfer: Stable Care Plan Goals: - Follow up with PCP in 1-2 weeks, If you don't have a PCP, you can make an appointment at the [facility]: - Prescribe new lactulose 30gm po - Continue rest of medications as previously prescribed - Return to the ED or call EMS is symptoms return and/or worsen - Please be sure to take your lactulose as prescribed, it will prevent confusion secondary to ammonia buildup from your liver disease - If there are any concerns regarding blood in your stools, headache, nausea, vomiting or any other issues please return to the ED - Gallstones were noted on your CT scan. They were not an acute issue this admission but if you would like to seek intervention please have your PCP refer you to a surgeon regarding treatment/therapies - Make sure to take your diabetes and blood pressure medications as prescribed Prescriptions/Referrals Prescriptions/Med Rec: New Xifaxan 550 mg Tablet 550 mg PO BID 30 Days Qty: 60 0RF spironolactone 25 mg Tablet 25 mg PO BID 30 Days Qty: 60 0RF lactulose 10 gram/15 mL solution 20 g PO TID Qty: 3785 0RF Rx Instructions: Titrate to three bowel movements per day Continued ferrous sulfate [Iron (ferrous sulfate)] 325 mg (65 mg iron) tablet 325 mg PO QDAY Qty: 30 5RF carvedilol 3.125 mg tablet 3.125 mg PO QDAY ondansetron HCl 8 mg tablet 8 mg PO Q12H PRN (Reason: nausea and vomiting) Patient Comments: TAKE 1 TABLET BY MOUTH EVERY DAY NEEDED metformin 750 mg tablet 1,000 mg PO BIDWMEAL Referrals: No Primary/Family,Physician [Primary Care Provider] Patient/Caregiver Discharge Instructions Education Materials: Esophageal Varices, Anemia, What Are Gallstones, Understanding Cirrhosis, Discharge Instructions for ... Print Language: Czech Stand Alone Forms: Karla Award Info., Patient Portal Info Letter Discharge Order Discharge Orders: Discharge (Routine); Ordered 06/19/25 Ordered By: Marquez Youssef Rileticia Quality Discharge Quality Measures none MD Attestestation MD Attestation I have examined the patient, reviewed labs and imaging findings, discussed the case with the resident(s), and reviewed entered orders. I agree with the plan of care as outlined in this note. Time Spent; [address] Patrizia MD
== END 2025-06-19 12:02 | disposition home or self-care (01) | DRG 432 ==
LOC: SERX 06-14 01:02 → SERHOLD 06-14 02:11 → S3NX 06-14 06:21
PROVIDERS: Nurse Practitioner Family; Specialist; Admitting Provider Student in an Organized Health Care Education/Training Program; Emergency Provider Emergency Medicine; Visit Provider Internal Medicine
PROC: (CPT 43239; principal; 2025-06-14 17:00)
DX: K74.60 Unspecified cirrhosis of liver (principal); I85.11 Secondary esophageal varices with bleeding; D68.9 Coagulation defect, unspecified; K76.6 Portal hypertension; L40.9 Psoriasis, unspecified; K80.20 Calculus of gallbladder without cholecystitis without obstruction; D64.89 Other specified anemias; I10 Essential (primary) hypertension; E11.9 Type 2 diabetes mellitus without complications; K64.3 Fourth degree hemorrhoids; K76.82 Hepatic encephalopathy; Z63.4 Disappearance and death of family member; Z77.21 Contact with and (suspected) exposure to potentially hazardous body fluids; Z98.1 Arthrodesis status; Z78.1 Physical restraint status; Z79.84 Long term (current) use of oral hypoglycemic drugs; Z86.0101 Personal history of adenomatous and serrated colon polyps; D69.59 Other secondary thrombocytopenia; B19.20 Unspecified viral hepatitis C without hepatic coma
CPT/HCPCS: 36415; 74176; 80053; 81001; 82105; 82140; 83036; 83605; 83690; 85025; 85610; 86850; 86900; 86901; 93005; 93225; 96365; 99283; A4649; J0696; J1200; J1815; J2060; J2250; J2270; J2354; J2405; J2470; J3010; J3490; J7050; J7120; A9270

== ENCOUNTER 2025-06-25 05:15 | Emergency (ER) | payer BC, SELFPAY ==
[2025-06-25 05:17] VITALS: BMI 23.1
--- NOTE | 2025-06-25 05:19 | EKG_ITS ---
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
[2025-06-25 05:28] VITALS: BP 127/81; PULSE 89; RESP 16; TEMP 36.8; O2SAT 99
--- NOTE | 2025-06-25 05:39 | XR_ITS ---
EXAMINATION: PA chest single view TECHNIQUE: Upright PA chest single view Date and time: June 25, 2025, 0601 hours INDICATIONS: Shortness of breath chest pain today. FINDINGS: Normal heart size Lungs are clear. Intact osseous structures IMPRESSION: No active disease
--- NOTE | 2025-06-25 05:39 | EDRME_ITS ---
Rapid Medical Screening Exam [facility] Arrival date/time: 06/25/25 05:15 55M with history of cirrhosis 2/2 to hep C, DM, and HTN presents to ED with 2 days of intermittent CP and SOB (SOB>CP). Patient denies ab pain and N/V and doesn't feel like he needs to be tapped. Patient also denies AMS/confusion, as well as vomiting blood or having obvious black stools. Patient recently discharged for GIB and he just got a bit scared. As instructed, patient stopped taking carvedilol for the spironolactone. Chief Complaint: Chest Pain Vital signs: Vital Signs Temperature 98.2 F 06/25/25 05:28 Pulse Rate 89 06/25/25 05:28 Respiratory Rate 16 06/25/25 05:28 Blood Pressure 127/81 06/25/25 05:28 Pulse Oximetry (%) 99 06/25/25 05:28 Oxygen Delivery Method Room Air 06/25/25 05:28 Exam: Clear lungs. Normal WOB. No gross ab distention. Pale/jaundiced. Clinical Impression: Anemia vs anxiety vs CHF vs ascites vs anxiety vs effusion vs URI vs CAP
--- NOTE | 2025-06-25 06:27 | PD.EDSOB ---
ED SOB =RME/HPI General Chief Complaint: Chest Pain Stated Complaint: SOB CHEST PAIN Time Seen by Provider: 06/25/25 05:59 Source: patient Arrival date/time: 06/25/25 05:15 55-year-old male with a history of hypertension, type 2 diabetes, liver cirrhosis secondary to hepatitis C, presents to the emergency room with a chief complaint of abdominal distention, chest pain, and shortness of breath x 2 days Mode of arrival: ambulatory Limitations: no limitations RME / HPI RME / HPI Narrative: 06/25/25 05:15 55M with history of cirrhosis 2/2 to hep C, DM, and HTN presents to ED with 2 days of intermittent CP and SOB (SOB>CP). Patient denies ab pain and N/V and doesn't feel like he needs to be tapped. Patient also denies AMS/confusion, as well as vomiting blood or having obvious black stools. Patient recently discharged for GIB and he just got a bit scared. As instructed, patient stopped taking carvedilol for the spironolactone. Exam: Clear lungs. Normal WOB. No gross ab distention. Pale/jaundiced. Impression: Anemia vs anxiety vs CHF vs ascites vs anxiety vs effusion vs URI vs CAP Related Data Home Medications ?Medication ?Instructions ?Recorded ?Confirmed carvedilol 3.125 mg tablet 3.125 mg PO QDAY 01/20/25 06/14/25 metformin 750 mg tablet 1,000 mg PO BIDWMEAL 06/14/25 06/14/25 ondansetron HCl 8 mg tablet 8 mg PO Q12H PRN nausea and 06/14/25 06/14/25 vomiting Previous Rx's ?Medication ?Instructions ?Recorded ferrous sulfate 325 mg (65 mg 325 mg PO QDAY #30 tabs 02/19/25 iron) tablet (Iron (ferrous sulfate)) rifaximin 550 mg tablet (Xifaxan) 550 mg PO BID 30 days #60 tabs 06/18/25 spironolactone 25 mg tablet 25 mg PO BID 30 days #60 tabs 06/18/25 lactulose 10 gram/15 mL oral 20 g (30 mL) PO TID #3,785 mL 06/19/25 solution Allergies Allergy/AdvReac Type Severity Reaction Status Date / Time No Known Allergies Allergy Verified 06/25/25 05:20 Review of Systems Review of Systems Systems Reviewed: All systems reviewed, normal except as documented Constitutional Constitutional: Reports system reviewed and no additional complaints, except as documented, Denies fatigue, Denies fever(s), Denies headache(s) and Denies weakness Eyes Eyes: Reports system reviewed and no additional complaints, except as documented, Denies blurry vision and Denies change in vision ENT Ears, Nose, Mouth, and Throat: Reports system reviewed and no additional complaints, except as documented, Denies otalgia, Denies headache(s), Denies nasal congestion, Denies throat swelling and Denies vertigo Cardiovascular Cardiovascular: Reports system reviewed and no additional complaints, except as documented, Denies chest pain, Denies dyspnea and Denies dyspnea on exertion Respiratory Respiratory: Reports system reviewed and no additional complaints, except as documented, Denies chest congestion, Denies cough, Denies dyspnea, Denies dyspnea on exertion and Denies wheezing Gastrointestinal Gastrointestinal: Reports system reviewed and no additional complaints, except as documented, Denies abdominal pain, Denies cramping, Denies nausea and Denies vomiting Genitourinary Genitourinary: Reports system reviewed and no additional complaints, except as documented, Denies dysuria and Denies hematuria Musculoskeletal Musculoskeletal: Reports system reviewed and no additional complaints, except as documented and Denies back pain Integumentary/Breasts Skin/Breast: Reports system reviewed and no additional complaints, except as documented and Denies wounds Neurologic Neurologic: Reports system reviewed and no additional complaints, except as documented, Denies confusion, Denies headache(s), Denies lack of coordination, Denies vertigo and Denies weakness Psychiatric Psychiatric: Reports system reviewed and no additional complaints, except as documented, Denies anxiety, Denies confusion, Denies depression, Denies paranoia, Denies suicidal ideation and Denies tactile hallucinations Endocrine Endocrine: Reports system reviewed and no additional complaints, except as documented and Denies fatigue Hematologic/Lymphatic Hematologic/Lymphatic: Reports system reviewed and no additional complaints, except as documented and Denies lymphadenopathy Allergic/Immunologic Allergic/Immunologic: Reports system reviewed and no additional complaints, except as documented, Denies throat swelling, Denies urticaria and Denies wheezing ED Exam General Limitations: Present no limitations Course Orders Category Date Time Status EKG (ED ONLY) *Do not use* NOW Care 06/25/25 05:19 Completed EKG (ED Only) Stat Exams 06/25/25 05:19 Draft XR chest 1V portable Stat Exams 06/25/25 05:39 Taken B-Type Natriuretic Peptide Stat Lab 06/25/25 05:39 Ordered CBC Stat Lab 06/25/25 05:39 Ordered Comprehensive Metabolic Panel Stat Lab 06/25/25 05:39 Ordered Partial Thromboplastin Time Stat Lab 06/25/25 05:39 Ordered Prothrombin Time with INR Stat Lab 06/25/25 05:39 Ordered Troponin I Stat Lab 06/25/25 05:39 Ordered Type and Screen Stat Lab 06/25/25 05:39 Ordered Vital Signs Vital signs: Vital Signs Temperature 98.2 F 06/25/25 05:28 Pulse Rate 89 06/25/25 05:28 Respiratory Rate 16 06/25/25 05:28 Blood Pressure 127/81 06/25/25 05:28 Pulse Oximetry (%) 99 06/25/25 05:28 Oxygen Delivery Method Room Air 06/25/25 05:28 Discharge Plan Prescriptions/Referrals Prescriptions/Med Rec: No Action ferrous sulfate [Iron (ferrous sulfate)] 325 mg (65 mg iron) tablet 325 mg PO QDAY Qty: 30 5RF carvedilol 3.125 mg tablet 3.125 mg PO QDAY ondansetron HCl 8 mg tablet 8 mg PO Q12H PRN (Reason: nausea and vomiting) Patient Comments: TAKE 1 TABLET BY MOUTH EVERY DAY NEEDED metformin 750 mg tablet 1,000 mg PO BIDWMEAL Xifaxan 550 mg Tablet 550 mg PO BID 30 Days Qty: 60 0RF spironolactone 25 mg Tablet 25 mg PO BID 30 Days Qty: 60 0RF lactulose 10 gram/15 mL solution 20 g PO TID Qty: 3785 0RF Rx Instructions: Titrate to three bowel movements per day Referrals: No Primary/Family,Physician [Primary Care Provider] - In 1 week Patient/Caregiver Discharge Instructions Print Language: Uzbek
[2025-06-25 06:51] LABS: Basophils # (Auto) 0.0 Thou/mm3 (0.0-0.2); Basophils % (Auto) 1 % (0-2.5); Eosinophils # (Auto) 0.1 Thou/mm3 (0.0-0.5); Eosinophils % (Auto) 2 % (0-10); Hematocrit 27.0 % (41.0-53.0); Hemoglobin 8.8 g/dL (13.5-16.0); Immature Granulocytes Auto 0.01 Thou/mm3 (0.00-0.00); Lymphocytes # (Auto) 1.0 Thou/mm3 (1.0-4.8); Lymphocytes % (Auto) 25 % (10-50); Mean Corpuscular HGB Conc 32.6 g/dl (31.0-37.0); Mean Corpuscular Hemoglobin 27.9 pg (25.0-35.0); Mean Corpuscular Volume 86 fL (80-100); Monocytes # (Auto) 0.6 Thou/mm3 (0.0-0.8); Monocytes % (Auto) 16 % (0-12); Neutrophils # (Auto) 2.2 Thou/mm3 (1.8-7.7); Neutrophils % (Auto) 56 % (37-80); Nucleated Red Blood Cell # 0.00 Thou/mm3 (0.00-0.00); Nucleated Red Blood Cell % 0 /100 WBC (0); Platelet Count 66 Thou/mm3 (140-440); RDW Standard Deviation 50.6 fL (35.1-43.9); Red Blood Count 3.15 Miln/mm3 (4.50-5.90); White Blood Count 3.9 Thou/mm3 (3.8-10.6)
[2025-06-25 06:52] LABS: Slide Review Platelets confirmed
[2025-06-25 07:20] LABS: Alanine Aminotransferase 20 U/L (10-49); Albumin, Serum 3.8 gm/dL (3.5-5.0); Albumin/Globulin Ratio 0.9 (1.2-2.2); Alkaline Phosphatase 97 U/L (46-116); Anion Gap 10 (7-16); Aspartate Amino Transferase 33 U/L (0-34); BUN/Creatinine Ratio 11 Ratio (12-20); Bilirubin,Total 1.7 mg/dL (0.3-1.2); Blood Urea Nitrogen 8 mg/dL (9-23); Calcium 8.8 mg/dL (8.3-10.6); Calcium (Corrected) 9.0 mg/dL (8.5-10.1); Carbon Dioxide 27.1 mMol/L (20.0-31.0); Chloride 101 mMol/L (98-107); Creatinine (Component) 0.7 mg/dL (0.6-1.3); Estimated Creatinine Clearance 117.8 mL/min (>60); Globulin 4.1 gm/dL (2.3-3.5); Glucose 166 mg/dL (74-106); Osmolality,Calculated 277 (275-295); Potassium 3.8 mMol/L (3.4-5.1); Sodium 138 mMol/L (136-145); Total Protein 7.9 gm/dL (5.7-8.2); Troponin I < 0.002 ng/mL (0.0-0.045); eGFR > 60 See Note
[2025-06-25 07:21] LABS: INR 1.2 (0.9-1.3); Partial Thromboplastin Time 27.1 Seconds (22.0-36.0); Prothrombin Time 12.8 Seconds (9.0-12.2)
[2025-06-25 07:25] LABS: B-Type Natriuretic Peptide 23 pg/mL (0-100)
[2025-06-25 07:37] VITALS: BP 132/81; PULSE 90; RESP 20; TEMP 37.1; O2SAT 100
--- NOTE | 2025-06-25 07:45 | PD.EDSOB ---
ED SOB =RME/HPI General Chief Complaint: Chest Pain Stated Complaint: SOB CHEST PAIN Time Seen by Provider: 06/25/25 05:59 Source: patient Arrival date/time: 06/25/25 05:15 55-year-old male with a history of hypertension, type 2 diabetes, liver cirrhosis secondary to hepatitis C, presents to the emergency room with a chief complaint of shortness of breath x 2 days Mode of arrival: ambulatory Limitations: no limitations RME / HPI RME / HPI Narrative: 06/25/25 05:15 55M with history of cirrhosis 2/2 to hep C, DM, and HTN presents to ED with 2 days of intermittent CP and SOB (SOB>CP). Patient denies ab pain and N/V and doesn't feel like he needs to be tapped. Patient also denies AMS/confusion, as well as vomiting blood or having obvious black stools. Patient recently discharged for GIB and he just got a bit scared. As instructed, patient stopped taking carvedilol for the spironolactone. Exam: Clear lungs. Normal WOB. No gross ab distention. Pale/jaundiced. Impression: Anemia vs anxiety vs CHF vs ascites vs anxiety vs effusion vs URI vs CAP Related Data Home Medications ?Medication ?Instructions ?Recorded ?Confirmed carvedilol 3.125 mg tablet 3.125 mg PO QDAY 01/20/25 06/14/25 metformin 750 mg tablet 1,000 mg PO BIDWMEAL 06/14/25 06/14/25 ondansetron HCl 8 mg tablet 8 mg PO Q12H PRN nausea and 06/14/25 06/14/25 vomiting Previous Rx's ?Medication ?Instructions ?Recorded ferrous sulfate 325 mg (65 mg 325 mg PO QDAY #30 tabs 02/19/25 iron) tablet (Iron (ferrous sulfate)) rifaximin 550 mg tablet (Xifaxan) 550 mg PO BID 30 days #60 tabs 06/18/25 spironolactone 25 mg tablet 25 mg PO BID 30 days #60 tabs 06/18/25 lactulose 10 gram/15 mL oral 20 g (30 mL) PO TID #3,785 mL 06/19/25 solution Allergies Allergy/AdvReac Type Severity Reaction Status Date / Time No Known Allergies Allergy Verified 06/25/25 05:20 Review of Systems Review of Systems Systems Reviewed: All systems reviewed, normal except as documented Constitutional Constitutional: Reports system reviewed and no additional complaints, except as documented, Denies fatigue, Denies fever(s), Denies headache(s) and Denies weakness Eyes Eyes: Reports system reviewed and no additional complaints, except as documented, Denies blurry vision and Denies change in vision ENT Ears, Nose, Mouth, and Throat: Reports system reviewed and no additional complaints, except as documented, Denies otalgia, Denies headache(s), Denies nasal congestion, Denies throat swelling and Denies vertigo Cardiovascular Cardiovascular: Reports system reviewed and no additional complaints, except as documented, Denies chest pain, Reports dyspnea and Reports dyspnea on exertion Respiratory Respiratory: Reports system reviewed and no additional complaints, except as documented, Denies chest congestion, Reports cough, Reports dyspnea, Reports dyspnea on exertion and Denies wheezing Gastrointestinal Gastrointestinal: Reports system reviewed and no additional complaints, except as documented, Denies abdominal pain, Denies cramping, Denies nausea and Denies vomiting Genitourinary Genitourinary: Reports system reviewed and no additional complaints, except as documented, Denies dysuria and Denies hematuria Musculoskeletal Musculoskeletal: Reports system reviewed and no additional complaints, except as documented and Denies back pain Integumentary/Breasts Skin/Breast: Reports system reviewed and no additional complaints, except as documented and Denies wounds Neurologic Neurologic: Reports system reviewed and no additional complaints, except as documented, Denies confusion, Denies headache(s), Denies lack of coordination, Denies vertigo and Denies weakness Psychiatric Psychiatric: Reports system reviewed and no additional complaints, except as documented, Denies anxiety, Denies confusion, Denies depression, Denies paranoia, Denies suicidal ideation and Denies tactile hallucinations Endocrine Endocrine: Reports system reviewed and no additional complaints, except as documented and Denies fatigue Hematologic/Lymphatic Hematologic/Lymphatic: Reports system reviewed and no additional complaints, except as documented and Denies lymphadenopathy Allergic/Immunologic Allergic/Immunologic: Reports system reviewed and no additional complaints, except as documented, Denies throat swelling, Denies urticaria and Denies wheezing Past Medical History Past Medical History NEUROLOGIC: Negative Neurological Disorders, Cerebrovascular Accident, Transient Ischemic Attacks (TIA), Dementia, Alzheimer's Disease, Parkinson's Disease, Brain Tumor, Meningitis, Seizures, Epilepsy, Multiple Sclerosis, Cerebral Palsy, Amyotrophic Lateral Sclerosis (ALS/[place]'s), Guillain-[place] Syndrome, Spina Bifida, Paralysis, Peripheral Neuropathy, Ortiz's Palsy, Subdural Hematoma, Migraine, Head Trauma, Spinal Cord Injury or Traumatic Brain Injury CARDIAC: Positive Cardiac Disorders and Hypertension; Negative Myocardial Infarction, Cardiac Arrhythmia, Atrial Fibrillation, Angina, Heart Murmur, Coronary Artery Disease, Atherosclerotic Heart Disease, Peripheral Vascular Disease, Hypercholesterolemia, Aneurysm, Congestive Heart Failure, Congenital Heart Disease, Valvular Heart Disease, Rheumatic Fever, Cardiomyopathy, Edema, Pericarditis, Cellulitis, Deep Vein Thrombosis, Hypotension or Varicose Veins RESPIRATORY: Negative Chronic Obstructive Pulmonary Disease (COPD), Asthma, Bronchitis, Emphysema, Pneumonia, Pulmonary Fibrosis, Cystic Fibrosis, Tuberculosis, Pulmonary Embolism, Pulmonary Edema or Sleep Apnea GASTROINTESTINAL: Positive Gastrointestinal Disorders, Hepatitis, Cirrhosis, Gall Bladder Disease, Gastrointestinal Bleed, Esophageal Varices and Ulcer; Negative Pancreatitis, Celiac Disease, Hu's Esophagus, Colitis, Ulcerative Colitis, Diverticulitis, Diverticulosis, Colorectal Cancer, Irritable Bowel, Crohn's Disease, Obstructive Bowel, Hiatal Hernia, Hemorrhoids, Gastroesophageal Reflux Disease or Obesity GENITOURINARY: Negative Genitourinary Disorders, Renal Disease, Kidney Stones, Polycystic Kidney Disease, Neurogenic Bladder, Inguinal Hernia, Dialysis, Prostate Cancer or Benign Prostatic Hyperplasia REPRODUCTIVE: Negative Breast Cancer, Fibroids, Genital Herpes, Gonorrhea, Syphilis or Testicular Cancer MUSCULOSKELETAL: Negative Musculoskeletal Disorders, Muscular Dystrophy, Myasthenia Gravis, Marfan's Syndrome, Bone Cancer, Arthritis, Rheumatoid Arthritis, Osteoporosis, Degenerative Disk Disease, Gout, Scoliosis, Carpal Tunnel Syndrome, Fibromyalgia, Fractures, Degenerative Joint Disease, Osteomyelitis or Poliovirus ENT: Negative Cataracts, Glaucoma, Blind, Retinal Detachment, Macular Degeneration, Ear Infection, Deafness, Head Trauma or Eye Prosthesis ENDOCRINE: Positive Endocrine Disorders and Diabetes Mellitus Type 2; Negative Diabetes Mellitus Type 1, Hypoglycemia, Ellsworth's Syndrome, Arnold's Disease, Hyperthyroidism, Hypothyroidism, Parathyroid Disease, Pituitary Disease, Systemic Lupus Erythematosus, Syndrome of Inappropriate Antidiuretic Hormone (SIADH), Adrenal Disease or Graves' Disease HEMATOLOGIC: Positive Blood Disorders and Anemia; Negative Leukemia, Hemophilia, Thalassemia, Sickle Cell Disease or Clotting Problems PSYCHO/SOCIAL: Negative Psychiatric Problems, Schizophrenia, Recreational Drug Use, Bipolar Disorder, Depression, Anxiety, Behavior Problems, Self-Mutilation, Attention Deficit Disorder, Attention Deficit Hyperactivity Disorder, Depression, Post Traumatic Stress Disorder or Eating Disorder OTHER HISTORY: Positive Blood Transfusions; Negative Hospitalization, Autoimmune Disease, Down Syndrome, Autism, Developmental Delay, Shingles, Falls, Blood Transfusion Reaction, Anesthesia Reactions, Organ Transplant, Chemotherapy, Radiation Therapy, Hyperbaric Therapy, MRSA, VRSA, Vancomycin-Resistant Enterococci, Human Immunodeficiency Virus (HIV), Chicken Pox, Measles, Mumps, Rubella (Tel[place] Measles), Pertussis, Clostridium Difficile, Cancer, Breast Cancer, Colorectal Cancer, Lung Cancer, Prostate Cancer or Testicular Cancer Family History FAMILY HISTORY: Positive Family Cardiac Disorders; Negative Family Psychiatric Problems, Family Respiratory Disorders, Family Gastrointestinal Problems, Family Cancer, Family Surgery or Family Anesthesia Reaction Surgical History SURGICAL: Negative Cardiac Surgery, Open Heart Surgery, Coronary Artery Bypass Graft, Valve Replacement, Vascular Surgery, Coronary Stent, Cardiac Catheterization, Pacemaker, Angiogram, Auto Implanted Cardiovert Defib, Carotid Endarterectomy, Endocrine Surgery, Thyroidectomy, Ear Surgery, Tympanostomy Tube, Eye Surgery, Nose Surgery, Oral Surgery, Tonsillectomy, Adenoidectomy, Cochlear Implant, Corneal Transplant, Throat Surgery, Abdominal Surgery, Tracheostomy, Gastric Bypass Surgery, Gastrostomy, Bowel Surgery, Nephrectomy, Transurethral Resection, Joint Replacement, Amputation, Open Reduction Internal Fixation, Arthroscopy, Neurologic Surgery, Mastectomy, Vasectomy or Organ Transplant Social History SMOKING STATUS: Never smoker SECOND HAND EXPOSURE: No SUBSTANCE USE: does not use ED Exam General Limitations: Present no limitations General appearance: Present alert and in no apparent distress Head Head exam: Present atraumatic Eye Eye exam: Present normal appearance, PERRL and EOMI ENT ENT exam: Present normal exam, normal oropharynx and mucous membranes moist Neck Neck exam: Present normal inspection, full ROM and trachea midline Chest Chest inspection: Present normal inspection and symmetric chest wall rise Respiratory Respiratory exam: Present normal lung sounds bilaterally; Absent respiratory distress, wheezes, stridor, accessory muscle use or prolonged expiratory phase Cardiovascular Cardiovascular exam: Present regular rate, normal rhythm, normal heart sounds, +S1 and +S2; Absent bradycardia, tachycardia, irregular rhythm, systolic murmur, diastolic murmur, rubs, gallop, clicks or JVD Abdominal Exam Abdominal exam: Present soft, normal bowel sounds and ascites; Absent distention, tenderness, guarding, rebound or rigidity Abdominal tenderness: Present mild Extremities Exam Extremities exam: Present normal inspection and full ROM Back Exam Back exam: Present normal inspection and full ROM Neurological Exam Neurological exam: Present alert, oriented X3 and CN II-XII intact Psychiatric Psychiatric exam: Present normal affect and normal mood Skin Skin exam: Present warm, dry, intact and normal color Course Quality Measures none Orders Category Date Time Status EKG (ED ONLY) *Do not use* NOW Care 06/25/25 05:19 Completed EKG (ED Only) Stat Exams 06/25/25 05:19 Draft XR chest 1V portable Stat Exams 06/25/25 05:39 Completed B-Type Natriuretic Peptide Stat Lab 06/25/25 05:30 Received CBC Stat Lab 06/25/25 05:30 Received Comprehensive Metabolic Panel Stat Lab 06/25/25 05:30 Received Partial Thromboplastin Time Stat Lab 06/25/25 05:30 Received Prothrombin Time with INR Stat Lab 06/25/25 05:30 Received Troponin I Stat Lab 06/25/25 05:30 Received Type and Screen Stat Lab 06/25/25 05:30 Received Vital Signs Vital signs: Vital Signs Temperature 98.2 F 06/25/25 05:28 Pulse Rate 89 06/25/25 05:28 Respiratory Rate 16 06/25/25 05:28 Blood Pressure 127/81 06/25/25 05:28 Pulse Oximetry (%) 99 06/25/25 05:28 Oxygen Delivery Method Room Air 06/25/25 05:28 Shortness of Breath / Dyspnea MDM Narrative MDM Narrative:: 55-year-old male with a history of hypertension, type 2 diabetes, liver cirrhosis secondary to hepatitis C, presents to the emergency room with a chief complaint of shortness of breath x 2 days Patient is hemodynamically stable and in no apparent distress Physical examination shows clear bilateral lung sounds there is no wheezing or any abnormal breath sounds The patient has a soft nontender abdomen. There is some mild abdominal distention, but not severe and based on the patient's signs and symptoms and subjective history there is no need for paracentesis at this time. Patient also explained to me that he has been taking a lesser dose of his lactulose because he was unaware that he had multiple bottles at his pharmacy and did not want to run out. I spoke to the patient and educated to take his prescribed dose of lactulose. During my reevaluation the patient states he feels a lot better Patient was discharged and educated to follow-up with primary care provider in the next 24 to 48 hours and return to the emergency room for any evidence of worsening signs or symptoms Patient data External records reviewed:: [facility] previous records Clinical information provided by:: patient Social determinants that could affect healthcare access:: none Patient has the following chronic illnesses:: Liver cirrhosis How is presenting disease/condition affected by chronic disease/condition?: caused by Evaluation data The following diagnostics were reviewed and interpreted by me:: lab results and radiology exam(s) Lab and/or radiology exams considered but not ordered:: Labs and radiology exams considered and ordered Interpretation Summary: Chest x-ray-no pneumonic infiltrates Medications / Prescriptions Medications or Prescriptions considered but not ordered:: No medication given Medication administrations:: No medication given Consultations Consultation(s) initiated? (list below): No Diagnosis Shortness of Breath Differential Diagnosis: congestive heart failure, community acquired pneumonia and other ([facility] pneumonia/palpitations/shortness of breath) Most likely diagnosis given after review of the tests above:: Shortness of breath Admission Indicated Admission indicated?: not indicated Admission Request Was there a request for admission?: No Disposition Plan Disposition Plan: Discharge Discharge Attestation Discharge Attestation: The patient and all family members were given an opportunity to ask questions and understood the discharge instructions. Discharge instructions specifically effects, indications for sooner follow up or return to the emergency department, and the expected course of current diagnosis. Patient condition: Stable Discharge Plan Plan Patient Disposition: HOME (Self Care) Discharge Disposition comment: Stable Prescriptions/Referrals Prescriptions/Med Rec: No Action ferrous sulfate [Iron (ferrous sulfate)] 325 mg (65 mg iron) tablet 325 mg PO QDAY Qty: 30 5RF carvedilol 3.125 mg tablet 3.125 mg PO QDAY ondansetron HCl 8 mg tablet 8 mg PO Q12H PRN (Reason: nausea and vomiting) Patient Comments: TAKE 1 TABLET BY MOUTH EVERY DAY NEEDED metformin 750 mg tablet 1,000 mg PO BIDWMEAL Xifaxan 550 mg Tablet 550 mg PO BID 30 Days Qty: 60 0RF spironolactone 25 mg Tablet 25 mg PO BID 30 Days Qty: 60 0RF lactulose 10 gram/15 mL solution 20 g PO TID Qty: 3785 0RF Rx Instructions: Titrate to three bowel movements per day Referrals: No Primary/Family,Physician [Primary Care Provider] - In 1 week Problem List Clinical Impression: Exertional shortness of breath, Cirrhosis of liver Patient/Caregiver Discharge Instructions Education Materials: Understanding Cirrhosis, Shortness of Breath Coping, ED Shortness of Breath (Dyspnea) Additional Instructions: Please follow-up with your primary care provider in the next 24 to 48 hours Please take a full dose of your lactulose medication as prescribed. For any evidence of worsening signs or symptoms please return to the emergency room immediately Print Language: Tamazight Stand Alone Forms: Karla Award Info., Work/School Release, Patient Portal Info Letter
== END 2025-06-25 07:45 | disposition home or self-care (01) ==
PROVIDERS: Physician Assistant; Emergency Provider Emergency Medicine
DX: R06.02 Shortness of breath (principal); R07.9 Chest pain, unspecified; K74.60 Unspecified cirrhosis of liver; B19.20 Unspecified viral hepatitis C without hepatic coma; I10 Essential (primary) hypertension; E11.9 Type 2 diabetes mellitus without complications
CPT/HCPCS: 36415; 71045; 80053; 83880; 84484; 85025; 85610; 85730; 86850; 86900; 86901; 93005; 99283